=== PATIENT | male | born 1940 | race Hispanic/Latino ===

== ENCOUNTER 2020-06-29 08:00 | Outpatient (CLI) | payer MEDICARE, MEDICAID, SELFPAY ==
--- NOTE | ~2020-06-29 | MR_ITS ---
EXAMINATION: MR brain/brain stem wo con EXAM DATE: 06/29/2020 15:11 INDICATION: Dizziness. TECHNIQUE: Magnetic resonance imaging (MRI) of the brain/brain stem obtained without contrast. Sagitt al T1, axial diffusion, gradient echo (T2*), T1, T2, FLAIR sequences obtained. There is no prior st udy for comparison. FINDINGS: Large region of encephalomalacia centered in the left parietal region. Small old bilateral cerebellar lacunar infarctions. Some dilated basal ganglia perivascular spaces. Punctate region of in creased diffusion weighted signal in the right centrum semiovale, could be tiny acute infarction. Th ere is no acute hemorrhage seen on the T2*, a hemosiderin sensitive sequence. No intraparenchymal br ain mass lesion. There is moderate periventricular and subcortical T2/FLAIR signal hyperintensity, no nspecific but probably related to small vessel ischemic disease (microangiopathy). There is moderat e prominence of the sulci and ventricles related to cerebral atrophy. There are no extra-axial daniel ections. Flow voids are seen in the cerebral arteries on the T2-weighted sequences consistent with t heir expected patency. Patient has had bilateral ocular lens surgery. Soft tissue is unremarkable. IMPRESSION: 1. Probable tiny acute right centrum semiovale, white matter Infarction. 2. Large old left parietal infarction. 3. Punctate old cerebellar infarctions. 4. Chronic age related findings Reviewed, dictated and finalized at location A.
== END 2020-06-29 08:01 | disposition home or self-care (01) ==
LOC: ANHIMG 08-04 14:59
PROVIDERS: PCP Physician Assistant; Visit Provider Physician Assistant
DX: R42 Dizziness and giddiness (principal); Z86.73 Personal history of transient ischemic attack (TIA), and cerebral infarction without residual deficits
CPT/HCPCS: 70551

== ENCOUNTER 2020-08-07 21:07 | Emergency (ER) | payer MEDICARE, MEDICAID, SELFPAY ==
[2020-08-07] VITALS (8 sets, daily range): BP systolic 142–183; BP diastolic 61–79; PULSE 49–63; RESP 19–20; TEMP 36.3–36.9; O2SAT 99–100
--- NOTE | ~2020-08-07 | XR_ITS ---
EXAMINATION: XR chest 1V DATE: 08/07/2020 21:36 INDICATION: Hypertension, dizziness and nausea TECHNIQUE: frontal view of the chest was obtained. COMPARISON: Chest radiograph dated 11/17/[address] dated 07/09/2019 FINDINGS: There is increased lucency and some architectural distortion most prominent in the right upper lung z one corresponding to emphysema better appreciated on prior CT. No focal airspace opacities, pulmonary edema, pleural effusion or pneumothorax. Heart size is normal. Tortuous thoracic aorta. Enlargement of the central pulmonary arteries consistent with pulmonary arterial hypertension. Cholecystectomy cl ips in the right upper quadrant. Heterotopic ossification at the right coracoclavicular ligament cons istent with chronic right acromioclavicular joint separation. Surgical clips at the right base of the neck consistent with prior right thyroidectomy. IMPRESSION: 1. Emphysema. No acute cardiopulmonary disease. Reviewed, dictated and finalized at [facility]. ITTER
--- NOTE | ~2020-08-07 | CT_ITS ---
EXAMINATION: CT brain wo con DATE: 08/07/2020 21:29 INDICATION: Dizziness TECHNIQUE: Computed tomography (CT) of the head was performed without intravenous contrast. Sagittal and coronal reconstructions were performed. The mA was adjusted according to patient size. Iterative reconstruction technique was employed. The dose-length product was 605.33 mGy-cm. COMPARISON: head CT dated 03/16/2017 FINDINGS: Again seen is a large region of encephalomalacia in the transverse in the left parietal and parietal occipital region consistent with chronic infarct. A couple additional small old lacunar infarcts in t he bilateral cerebellar hemispheres. No acute intracranial hemorrhage, acute infarction or mass/mass effect. There is symmetric prominence of the sulci and subarachnoid spaces overlying the convexities consistent with moderate age-appropriate diffuse cerebral volume loss. Mild to moderate leaking andi ventricular and subcortical white matter hypoattenuation consistent with chronic small vessel ischemi c disease. Changes of aging intraocular lens replacement. Mucosal thickening the bilateral ethmoid si nuses. The orbits and mastoid air cells are normal. Intracranial calcified cerebral atherosclerosis i s noted. Debris/cerumen in the left external auditory canal. Benign lytic right frontal calvarial les ion with central fat attenuation consistent with hemangioma. IMPRESSION: 1. No acute intracranial process. 2. Unchanged large left parietal and parietal occipital infarct and small bilateral cerebellar infarc ts. 3. Stable appearance of moderate diffuse volume loss and mild to moderate scattered white matter hypo attenuation consistent with chronic small vessel ischemic disease. 4. Chronic sinus disease. Reviewed, dictated and finalized at location . STATION ATTENDANT IMPRESSION: 1. No acute intracranial process. 2. Unchanged large left parietal and parietal occipital infarct and small bilat eral cerebellar infarcts. 3. Stable appearance of moderate diffuse volume loss and mild to moderate scatt ered white matter hypoattenuation consistent with chronic small vessel ischemic disease. 4. Chronic sinus disease.
--- NOTE | 2020-08-07 21:11 | ECG_ITS ---
Measurements Intervals [place] Rate: 52 P: 74 MD: 192 QRS: -12 QRSD: 98 T: 13 QT: 451 QTc: 420 Interpretive Statements SINUS BRADYCARDIA EARLY PRECORDIAL R/S TRANSITION INFERIOR INFARCT, AGE INDETERMINATE ABNORMAL ECG Electronically Signed On 08-08-2020 8:25:19 CURRICULUM DESIGNER by Richard Castro D.O.
--- NOTE | 2020-08-07 21:12 | ED.DIZZY ---
HPI - Dizziness General Chief Complaint: Dizziness Stated Complaint: dizzy History of Present Illness HPI Narrative: Patient presents emergency department via EMS for dizziness. Patient states that dizziness began today. He states that with standing he becomes dizzy and feels like the room is spinning. States the symptoms resolve when he sits down he denies any current dizziness sitting in the bed. He denies any fevers or chills chest pain shortness of breath abdominal pain numbness or tingling of the extremities or any other symptoms Related Data Home Medications Medication Instructions Recorded Confirmed alprazolam 08/07/20 ferrous sulfate mg 08/07/20 levothyroxine 08/07/20 memantine mg 08/07/20 mirtazapine mg 08/07/20 pantoprazole PO 08/07/20 simvastatin mg 08/07/20 Allergies Allergy/AdvReac Type Severity Reaction Status Date / Time No Known Allergies Allergy Verified 08/07/20 22:54 Review of Systems Review of Systems: Narrative: Gen.: Denies fevers or chills Eyes: Denies eye pain or visual change ENT: Denies congestion Respiratory: Denies shortness of breath or cough CV: Denies chest pain or palpitations GI: Denies abdominal pain nausea, emesis or diarrhea denies burning, urgency, frequency or hematuria Musculoskeletal: Denies back pain or muscle pain Neuro: see HPI Skin: Denies rash Except as documented, all other systems reviewed and negative [facility] Past Medical History Medical History (Updated 08/08/20 @ 01:02 by Drew De Luna DO) CVA (cerebral vascular accident) Hypertension Family History Family History (Updated 12/26/13 @ 22:43 by DOCTOR UNKNOWN) Mother Patient's mother is Father Patient's father is Social History Social History (Updated 08/07/20 @ 21:13 by Drew De Luna DO) Smoking status: Never smoker Exam Narrative: Exam Narrative: APPEARANCE: No acute distress, nontoxic, resting in bed HEENT: Normocephalic, atraumatic, OMM, TMs clear bilaterally EYES: PERRL, EOMI NECK: Supple, nontender, full range of motion without pain, no meningismus RESPIRATORY: No respiratory distress, clear to auscultation bilaterally with no rhonchi wheezing or rales CARDIOVASCULAR: RRR s murmur ABDOMINAL: Soft, nontender, nondistended MUSCULOSKELETAL: Moves all extremities. No clubbing, cyanosis or edema. NEURO: A and O ?3, following commands, speech normal, cranial nerves II through XII grossly intact,muscle strength 5 out of 5 bilateral upper and lower extremities SKIN:: Warm, dry. Normal Color PSYCHIATRIC: Normal affect/mood Course Course Emergency Course: Patient states dizziness is resolved following medication able to get up and ambulate in ED with no dizziness Discussed with patient results of workup and diagnosis. Discussed need for follow-up with primary care, proper use of medication, and reasons to return to the emergency department. Patient understands and agrees to current treatment plan Vital Signs Vital signs: Vital Signs Temperature 97.3 F L 08/07/20 21:05 Pulse Rate 63 08/07/20 21:05 Respiratory Rate 19 08/07/20 21:05 Blood Pressure 166/63 H 08/07/20 21:05 Pulse Oximetry 100 08/07/20 21:05 Temperature 98.5 F 08/07/20 22:46 Pulse Rate 49 L 08/07/20 22:46 Respiratory Rate 20 08/07/20 22:46 Blood Pressure 176/70 H 08/07/20 22:46 Pulse Oximetry 100 08/07/20 22:46 MDM - Dizziness MDM Narrative Medical decision making narrative: Patient's vertigo is felt to be likely peripheral in origin. There is no diplopia, dysarthria or dysphagia. Patient's gait is stable and there are no cerebral deficits to exam. Risk factor for central causes of vertigo reviewed. Patient felt likely reasonable for continued outpatient management and risks are felt to outweigh benefits for further imaging studies at this time Lab Data Result diagrams: 08/07/20 21:52 08/07/20 21:52 Labs
[2020-08-07 22:02] LABS: Basophils Percent Auto 0.5 % (0.2-1.2); Eosinophils Absolute Auto 0.3 K/mm3 (0-0.3); Eosinophils Percent Auto 3.6 % (0-4.4); Hemoglobin 13.6 g/dL (14.0-18.0); Immature Granulocyte Absolute 0.02 K/mm3 (0.00-0.031); Immature Granulocyte Percent A 0.3 % (0-0.5); Lymphocytes Absolute Auto 1.74 K/mm3 (0.9-3.2); Mean Corpuscular HGB Conc 33.2 g/dl (32-36); Mean Corpuscular Hemoglobin 30.2 pg (26-34); Mean Corpuscular Volume 90.9 fl (80-100); Mean Platelet Volume 9.7 fl (7.4-10.4); Monocytes Absolute Auto 0.8 K/mm3 (0.1-0.6); Monocytes Percent Auto 9.9 % (2.6-8.5); Neutrophils Absolute Auto 4.8 K/mm3 (1.3-6.7); Neutrophils Percent Auto 62.7 % (45.5-73.1); Platelet Count Result 209 k/mm3 (150-375); Red Blood Count 4.51 M/mm3 (4.6-6.20); Red Cell Distribution Width 13.7 % (11.5-14.5); White Blood Count 7.6 K/mm3 (4.5-10.0)
[2020-08-07 22:15] LABS: INR 0.9; Prothrombin Time 12.6 Seconds (11.1-14.7)
[2020-08-07 22:16] LABS: Partial Thromboplastin Time 32.3 SECONDS (22.3-36.8)
[2020-08-07 22:23] LABS: Alanine Aminotransferase 13 U/L (4-50); Alkaline Phosphatase 90 U/L (38-126); Anion Gap 8 mmol/L (8-16); Aspartate Amino Transferase 23 U/L (17-59); Bilirubin,Total 0.3 mg/dL (0.2-1.3); Blood Urea Nitrogen 21 mg/dL (9-20); Calcium 9.3 mg/dL (8.4-10.2); Carbon Dioxide 26 mmol/L (22-30); Chloride 102 mmol/L (98-107); Estimated Glomerular Filt Rate > 60; Glucose 99 mg/dL (75-110); Potassium 4.3 mmol/L (3.4-5.0); Sodium 136 mmol/L (137-145)
[2020-08-07 22:33] LABS: Troponin I < 0.012 ng/mL (0.000-0.034)
[2020-08-07] MEDS: MECLIZINE HCL 25 MG TABLET PO (22:42)
--- NOTE | 2020-08-07 22:59 | PC.NURSE ---
Patient's daughter is POA: Jacquie Mckay [phone] May call her for ride home.
[2020-08-07 23:11] LABS: Add Urine Microscopic? YES; Appearance Urine Clear (Clear); Bacteria Urine Trace /hpf; Bilirubin Urine Negative (Negative); Blood Urine Negative (Negative); Color Urine Straw (Yellow); Glucose Urine UA Negative (Negative); Ketones Urine Negative (Negative); Leukocyte Esterase Ur Negative LEU/UL (Negative); Nitrate Urine Negative (Negative); Protein Urine 1+ mg/dL (Negative); RBC Urine 0-2 /hpf (0-2); Specific Grav Ur 1.009 (1.001-1.035); Squamous Epithelial Cell Urine Rare /hpf (Few); Urobilinogen Urine Negative mg/dL (<2.0); WBC Urine 0-3 /hpf
[2020-08-08] VITALS: BP 152/65; PULSE 49; RESP 18; O2SAT 99
[2020-08-08 01:00] VITALS: BP 159/74; PULSE 52; RESP 19; O2SAT 99
== END 2020-08-08 01:30 | disposition home or self-care (01) ==
PROVIDERS: Emergency Provider Emergency Medicine; PCP Physician Assistant
DX: R42 Dizziness and giddiness (principal); Z86.73 Personal history of transient ischemic attack (TIA), and cerebral infarction without residual deficits; I10 Essential (primary) hypertension; R00.1 Bradycardia, unspecified; R94.31 Abnormal electrocardiogram [ECG] [EKG]; J43.9 Emphysema, unspecified
CPT/HCPCS: 36415; 70450; 71045; 80053; 81001; 84484; 85025; 85610; 85730; 93005; 99284; A9270

== ENCOUNTER 2021-09-17 17:20 | Emergency (ER) | payer MEDICARE, MEDICAID, SELFPAY ==
--- NOTE | ~2021-09-17 | CT_ITS ---
EXAMINATION: CT brain wo con EXAM DATE: 09/17/2021 19:42 INDICATION: Vertigo, history of stroke and dementia. Nausea. TECHNIQUE: Spiral CT of the head was performed without contrast. Axial, coronal and sagittal images were reviewed. The dose-length product (DLP) for this examination was 605.33 mGy-cm. The exposure w as tailored according to patient size, and iterative reconstruction (ASIR) was used as additional dos e reduction technique. Comparison is made to prior examination from 08/07/2020. FINDINGS: Large old left parietal lobe centered infarction. Old punctate bilateral caudate head lacun ar infarctions. Punctate old bilateral cerebellar infarctions. There is no acute intraparenchymal hem orrhage. No evidence of intraparenchymal brain mass lesion. No evidence of acute infarction. Pleas e note that initial head CT has limited sensitivity for small or acute infarctions. There is moderate periventricular and subcortical hypodensity, nonspecific but probably related to small vessel ischem ic disease. There is moderate prominence of the sulci and ventricles related to cerebral atrophy. There is intracranial carotid arteriosclerosis. There are no extra-axial collections. There is no mass effect or midline shift. Patient has had bilateral ocular lens surgery. Soft tissue is unremar kable. Opacified right maxillary sinus, moderate bilateral ethmoid and mild to moderate left maxillary sinus mucoperiosteal thickening. Mastoid air cells are well aerated. IMPRESSION: 1. No acute intracranial findings. 2. Chronic age related findings. 3. Old infarctions. Reviewed, dictated and finalized at location A. LATION INSTALLER
--- NOTE | ~2021-09-17 | XR_ITS ---
EXAMINATION: XR chest 1V portable EXAM DATE: 09/17/2021 18:12 INDICATION: Dizziness, bradycardia. History stroke and hypertension. TECHNIQUE: Portable AP frontal chest x-ray was obtained. Comparison is made to prior examination from 08/07/2020. FINDINGS: The lungs are clear. There are no pleural effusions. The cardiomediastinal silhouette is p rominent but magnified on this AP technique. There is no pneumothorax suspected. The bones and so ft tissues are unremarkable. IMPRESSION: No acute cardiopulmonary findings. Reviewed, dictated and finalized at location A. EKEEPER HELPER
[2021-09-17 17:24] VITALS: BP 156/67; PULSE 49; RESP 17; TEMP 37; O2SAT 99
--- NOTE | 2021-09-17 17:30 | ECG_ITS ---
Measurements Intervals [place] Rate: 44 P: 73 DC: 200 QRS: 28 QRSD: 100 T: 35 QT: 480 QTc: 414 Interpretive Statements SINUS BRADYCARDIA BORDERLINE AV CONDUCTION DELAY EARLY PRECORDIAL R/S TRANSITION CONSDIER INFERIOR INFARCT, AGE INDETERMINATE ABNORMAL ECG Electronically Signed On 09-17-2021 19:12:36 FUEL OIL CLERK by Richard Castro D.O.
[2021-09-17 17:51] LABS: Basophils Absolute Auto 0.1 K/mm3 (0.0-0.1); Basophils Percent Auto 0.8 % (0.2-1.2); Eosinophils Absolute Auto 0.6 K/mm3 (0-0.3); Eosinophils Percent Auto 7.8 % (0-4.4); Hematocrit 38.8 % (42.0-52.0); Hemoglobin 12.6 g/dL (14.0-18.0); Immature Granulocyte Absolute 0.02 K/mm3 (0.00-0.031); Immature Granulocyte Percent A 0.3 % (0-0.5); Lymphocytes Absolute Auto 1.96 K/mm3 (0.9-3.2); Lymphocytes Percent Auto 27.8 % (18.3-44.2); Mean Corpuscular HGB Conc 32.5 g/dl (32-36); Mean Corpuscular Hemoglobin 29.9 pg (26-34); Mean Corpuscular Volume 92.2 fl (80-100); Mean Platelet Volume 9.7 fl (7.4-10.4); Monocytes Absolute Auto 0.7 K/mm3 (0.1-0.6); Monocytes Percent Auto 10.1 % (2.6-8.5); Neutrophils Absolute Auto 3.8 K/mm3 (1.3-6.7); Neutrophils Percent Auto 53.2 % (45.5-73.1); Platelet Count Result 205 k/mm3 (150-375); Red Blood Count 4.21 M/mm3 (4.6-6.20); Red Cell Distribution Width 13.7 % (11.5-14.5); White Blood Count 7.1 K/mm3 (4.5-10.0)
[2021-09-17 18:01] LABS: Alanine Aminotransferase 8 U/L (4-50); Albumin Level 4.1 g/dL (3.5-5.1); Alkaline Phosphatase 86 U/L (38-126); Anion Gap 8 mmol/L (8-16); Aspartate Amino Transferase 17 U/L (17-59); Bilirubin,Total 0.3 mg/dL (0.2-1.3); Blood Urea Nitrogen 24 mg/dL (9-20); Carbon Dioxide 23 mmol/L (22-30); Chloride 105 mmol/L (98-107); Estimated CRCL calculation 35 ml/min; Estimated Glomerular Filt Rate > 60; Glucose 103 mg/dL (65-110); Potassium 4.4 mmol/L (3.4-5.0); Sodium 136 mmol/L (137-145)
[2021-09-17 18:53] LABS: Prothrombin Time 13.2 Seconds (11.1-14.7)
[2021-09-17 18:54] LABS: Magnesium 2.1 mg/dL (1.6-2.3); Partial Thromboplastin Time 33.7 SECONDS (22.3-36.8)
[2021-09-17 19:07] LABS: Troponin I < 0.012 ng/mL (0.000-0.034)
--- NOTE | 2021-09-17 19:12 | ED.GENADULT ---
HPI - General Adult General Chief complaint: Dizziness Stated complaint: dizzy Time Seen by Provider: 09/17/21 18:51 History of Present Illness HPI narrative: 81-year-old male presented to the emergency department for evaluation of dizziness. Patient states that approximately 5 PM he was sitting and watching TV when he had onset of a spinning sensation. Patient denies feeling like he was going to pass out. Patient describes that he felt the room was spinning. Patient denied any associated chest pain or shortness of breath. Patient did have associated nausea. Patient states symptoms lasted approximately 1 hour and began to improve. In the emerge department patient states he still does have some residual dizziness but states it is significantly improved. Patient denies any associated numbness or weakness. Patient denies any recent fevers or injury. Related Data Home Medications Medication Instructions Recorded Confirmed alprazolam 08/07/20 ferrous sulfate mg 08/07/20 levothyroxine 08/07/20 memantine mg 08/07/20 mirtazapine mg 08/07/20 pantoprazole PO 08/07/20 simvastatin mg 08/07/20 Allergies Allergy/AdvReac Type Severity Reaction Status Date / Time No Known Allergies Allergy Verified 09/17/21 18:19 Review of Systems Review of Systems: CONSTITUTIONAL: Denies fever, chills, or sweats. Patient does report dizziness EYES: Denies visual changes, redness, or discharge. ENT: Denies rhinorrhea, congestion, sore throat, or otalgia. CARDIOVASCULAR: Denies chest pain, palpitations, or edema. RESPIRATORY: Denies cough or dyspnea. GASTROINTESTINAL: Denies abdominal pain, nausea, vomiting, or diarrhea. GENITOURINARY: Denies dysuria or hematuria. SKIN: Denies rash or itching. MUSCULOSKELETAL: Denies back pain, joint pain, or myalgia. NEUROLOGIC: Denies headache, numbness, or weakness. PSYCHIATRIC: Denies anxiety or depression. [facility] Past Medical History Medical History (Updated 09/18/21 @ 00:00 by Kermit Ellison) CVA (cerebral vascular accident) Hypertension Family History Family History (System 08/26/20 @ 13:40 by Chana Kong) Mother Patient's mother is Father Patient's father is Social History Social History (System 08/26/20 @ 13:40 by Chana Kong) Smoking packs per day: 0.25 Smoking cigarettes per day: 5.0 Smoking status: Current some day smoker Exam Narrative: APPEARANCE: Well appearing, no pain in distress, well-nourished. HEAD: normocephalic, atraumatic. EYES: PERRLA/EOMI, conjunctivae clear. NOSE: Normal no drainage EARS:TMS clear with good light reflex. THROAT: Pharynx clear, no exudate. NECK: Supple. No adenopathy, no masses. RESPIRATORY: Airway patent, respirations nonlabored. Clear to auscultation bilaterally, no rales, rhonchi, wheezing. CARDIOVASCULAR: Regular rate and rhythm without murmurs rubs or gallops. ABDOMINAL: Soft, nontender, nondistended, normal bowel sounds MUSCULOSKELETAL: Moves all extremities. Strength/ROM intact, No edema, No calf tenderness. NEURO: Alert. Cranial nerves II through XII intact. Good gait. Good coordination. Patient symptoms of dizziness were induced when he looked up and when he looked to the left. Patient did have sustained nystagmus to the left. Nonsustained nystagmus when looking to the right. SKIN: Warm, dry. Normal Color PSYCHIATRIC: Normal affect/mood. Course Course Emergency Course: 81-year-old male presenting to the emergency department for onset of dizziness. Patient is being treated for suspected vertigo. Patient symptoms are inducible when looking to the left or when looking up. Patient did feel his symptoms resolved when closing his eyes. Evaluating labs, head CT and treated with meclizine. Reevaluation(s) Reevaluation #1: Patient states his dizziness symptoms have completely resolved. Patient denies any dizziness or lightheadedness. Patient states he feels back to h
[2021-09-17] MEDS: MECLIZINE HCL 25 MG TABLET PO (19:19)
[2021-09-17 21:35] VITALS: BP 112/78; PULSE 78; RESP 18; O2SAT 99
== END 2021-09-17 21:36 | disposition home or self-care (01) ==
PROVIDERS: Emergency Medicine; Emergency Provider Emergency Medicine; PCP Physician Assistant
DX: R42 Dizziness and giddiness (principal); I10 Essential (primary) hypertension; F17.210 Nicotine dependence, cigarettes, uncomplicated; Z86.73 Personal history of transient ischemic attack (TIA), and cerebral infarction without residual deficits
CPT/HCPCS: 36415; 70450; 71045; 80053; 83735; 84484; 85025; 85610; 85730; 93005; 99284; A9270

== ENCOUNTER 2021-10-26 15:32 | Inpatient (IN) | payer MEDICARE, MEDICAID, SELFPAY ==
[2021-10-26] VITALS (17 sets, daily range): BP systolic 108–146; BP diastolic 63–96; PULSE 54–88; RESP 14–24; TEMP 36.4–36.6; O2SAT 95–100
--- NOTE | ~2021-10-26 | US_ITS ---
EXAMINATION: US abdomen complete DATE: 10/27/2021 18:11 INDICATION: Persistent diarrhea. TECHNIQUE: Multiple grayscale and Doppler ultrasound images of the abdomen were obtained. COMPARISON: CT abdomen and pelvis 10/26/2021 FINDINGS: The visualized portions of the abdomen body of the pancreas are normal. The liver is normal without focal lesion. There is normal flow in main portal vein. The gallbladder is absent. The commo n duct is normal and measures 4 mm. The spleen is normal in size. Inferior vena cava is normal. Abdom inal aorta is normal in caliber. Right kidney measures 8.1 x 4.1 x 5.0 cm. Left kidney measures 8.4 x 4.7 x 3.6 cm. There is a 1.5 cm cyst in right kidney. IMPRESSION: 1. Mild atrophy of the kidneys. Reviewed, dictated and finalized at location E. UER SHADER
--- NOTE | ~2021-10-26 | CT_ITS ---
EXAMINATION: CT abdomen pelvis wo con DATE: 10/26/2021 21:14 INDICATION: Nausea and vomiting. TECHNIQUE: Computed tomography (CT) of the abdomen and pelvis was performed without intravenous contr ast. Automated exposure control and iterative reconstruction technique were employed. The dose-length product was 189.61 mGy-cm. COMPARISON: CT abdomen and pelvis 07/09/2019 FINDINGS: The visualized portions of the lung bases demonstrate patchy groundglass opacities with sep ayan thickening in all lobes. There is mild emphysema. No pleural effusion. The heart size is normal. There are coronary artery calcifications. No pericardial effusion. Calcified right lung nodules are c onsistent with old granulomatous disease. There is a chronic 2.2 cm rim calcified mass in right hepat ic lobe, likely benign. There are changes of cholecystectomy. The spleen, pancreas, adrenal glands, a nd left kidney are normal. There is a 1.7 cm cyst in right kidney. The prostate is mildly enlarged. T here is a left inguinal hernia containing nonobstructed small bowel. There is diverticulosis of the c olon without evidence of diverticulitis. The appendix is normal. There is a small sliding hiatal rina ia. There are no pathologically enlarged lymph nodes. There is no free intraperitoneal fluid. There i s severe lumbar spondylosis. IMPRESSION: 1. Multifocal lung disease, consistent with pneumonia such as COVID-19 pneumonia. . 2. Emphysema. 3. Left inguinal hernia containing nonobstructed small bowel. Reviewed, dictated and finalized at location A. CAL DIRECTOR OF HOSPICE IMPRESSION: 1. Multifocal lung disease, consistent with pneumonia such as COVID-19 pneumoni a. . 2. Emphysema. 3. Left inguinal hernia containing nonobstructed small bowel.
--- NOTE | ~2021-10-26 | CT_ITS ---
EXAMINATION: CTA chest PE protocol DATE: 10/27/2021 18:15 INDICATION: COVID-19 pneumonia. TECHNIQUE: Computed tomography angiography (CTA) of the chest was performed with 100 mL Omnipaque-350 intravenous contrast timed to evaluate the pulmonary arteries. Coronal maximum intensity projection 3D-reconstructions were created by the technologist. Automated exposure control and iterative reconst ruction technique were employed. The dose-length product was 220.14 mGy-cm. COMPARISON: Chest CT 07/09/2019 FINDINGS: There is moderate emphysema. Motion artifact is noted. There are patchy groundglass opaciti es with septal thickening involving the lower lobes, right middle lobe, and lingula. No pleural effus ion. There is ectasia of the descending thoracic aorta measuring 4.7 cm, stable from 07/09/2019. The heart size is normal. There are coronary artery calcifications. No pericardial effusion. There is no pulmonary embolus. There is mild bilateral gynecomastia. There is a chronic 2.3 cm rim calcified mass in right hepatic lobe, likely benign. There is severe thoracic spondylosis and severe cervical spond ylosis. IMPRESSION: 1. No pulmonary embolus. 2. Multifocal lung disease involving the lower lobes, right middle lobe, and lingula, consistent with COVID-19 pneumonia. 3. Moderate emphysema. Reviewed, dictated and finalized at location E. IAL DUTY NURSE IMPRESSION: 1. No pulmonary embolus. 2. Multifocal lung disease involving the lower lobes, right middle lobe, and li ngula, consistent with COVID-19 pneumonia. 3. Moderate emphysema.
--- NOTE | 2021-10-26 18:27 | ED.NAVMDI ---
HPI - Nausea/Vomiting/Diarrhea General Chief complaint: Nausea/Vomiting/Diarrhea Stated complaint: nausea and vomiting Time Seen by Provider: 10/26/21 18:25 Source: patient Mode of arrival: ambulatory Limitations: no limitations History of Present Illness HPI Narrative: Patient is an 81-year-old male complaining of nausea and vomiting x3 days. Patient states that every time I eat I throw it up . Patient describes vomitus is nonbilious nonbloody. Patient denies any abdominal pain, diarrhea, urinary symptoms, fever or chills. Patient denies any chest pain or shortness of breath. Related Data Home Medications Medication Instructions Recorded Confirmed alprazolam 08/07/20 ferrous sulfate mg 08/07/20 levothyroxine 08/07/20 memantine mg 08/07/20 mirtazapine mg 08/07/20 pantoprazole PO 08/07/20 simvastatin mg 08/07/20 Allergies Allergy/AdvReac Type Severity Reaction Status Date / Time No Known Allergies Allergy Verified 10/26/21 18:18 Review of Systems Review of Systems: All systems reviewed & are unremarkable except as noted in HPI and below Constitutional: Constitutional: Denies body ache(s), Denies chills, Denies excessive sweating, Denies fatigue, Denies fever(s), Denies headache(s), Denies lethargy, Denies malaise, Denies weakness and Denies weight loss Eyes: Eyes: Denies blurry vision, Denies change in vision and Denies loss of vision ENT: Denies dizziness, Denies ear discharge, Denies headache(s), Denies lip swelling, Denies epistaxis, Denies nasal congestion, Denies neck pain, Denies throat swelling and Denies tongue swelling Cardiovascular: Cardiovascular: Denies chest pain, Denies chest pain at rest, Denies chest pain with activity, Denies diaphoresis, Denies rapid heart rate, Denies edema, Denies irregular heart rhythm, Denies lightheadedness, Denies palpitations, Denies dyspnea and Denies dyspnea on exertion Respiratory: Respiratory: Denies chest congestion, Denies cough, Denies hemoptysis, Denies dyspnea and Denies dyspnea on exertion Gastrointestinal: Gastrointestinal: Denies abdominal pain, Denies melena, Denies hematochezia, Denies diarrhea and Denies hematemesis Musculoskeletal: Musculoskeletal: Denies abnormal gait, Denies deformity, Denies joint swelling, Denies limited range of motion, Denies neck pain and Denies numbness Neurologic: Denies Abnormal speech present, Denies abnormal gait, Denies confusion, Denies dizziness, Denies headache(s), Denies focal weakness, Denies loss of vision, Denies numbness, Denies Other visual disturbances, Denies Sensory deficit (Neuro) and Denies weakness Psychiatric: Psychiatric: Denies confusion, Denies depression, Denies auditory hallucinations, Denies homicidal ideation and Denies suicidal ideation Endocrine: Endocrine: Denies cold intolerance, Denies excessive sweating, Denies fatigue, Denies heat intolerance and Denies palpitations Hematologic/Lymphatic: Hematologic/Lymphatic: Denies easy bleeding and Denies easy bruising Allergic/Immunologic: Allergic/Immunologic: Denies lip swelling, Denies throat swelling and Denies tongue swelling PMFSH Past Medical History Medical History CVA (cerebral vascular accident) Hypertension Family History Family History Mother Patient's mother is Father Patient's father is Social History Social History Smoking packs per day: 0.25 Smoking cigarettes per day: 5.0 Smoking status: Current some day smoker Exam Const: General: cooperative, healthy appearing, comfortable, no acute distress, well developed, alert and awake; No confusion Orientation/consciousness: oriented to person, oriented to place, oriented to time, patient oriented x3 and No confusion Limitations: no limitations HENMT: Head: normal t
[2021-10-26 19:14] LABS: Basophils Percent Auto 0.3 % (0.2-1.2); Eosinophils Absolute Auto 0.1 K/mm3 (0-0.3); Eosinophils Percent Auto 0.8 % (0-4.4); Hematocrit 44.8 % (42.0-52.0); Hemoglobin 14.7 g/dL (14.0-18.0); Immature Granulocyte Absolute 0.14 K/mm3 (0.00-0.031); Immature Granulocyte Percent A 1.4 % (0-0.5); Lymphocytes Absolute Auto 0.96 K/mm3 (0.9-3.2); Lymphocytes Percent Auto 9.8 % (18.3-44.2); Mean Corpuscular HGB Conc 32.8 g/dl (32-36); Mean Corpuscular Hemoglobin 29.9 pg (26-34); Mean Corpuscular Volume 91.1 fl (80-100); Mean Platelet Volume 10.3 fl (7.4-10.4); Monocytes Absolute Auto 0.7 K/mm3 (0.1-0.6); Monocytes Percent Auto 7.6 % (2.6-8.5); Neutrophils Absolute Auto 7.9 K/mm3 (1.3-6.7); Neutrophils Percent Auto 80.1 % (45.5-73.1); Platelet Count Result 274 k/mm3 (150-375); Red Blood Count 4.92 M/mm3 (4.6-6.20); Red Cell Distribution Width 13.8 % (11.5-14.5); White Blood Count 9.8 K/mm3 (4.5-10.0)
[2021-10-26] MEDS: PANTOPRAZOLE SODIUM IV 40 MG VIAL IV PUSH (19:19)
[2021-10-26] MEDS: SODIUM CHLORIDE 0.9% IV 1,000 ML 999 ML IV CONT (19:19)
[2021-10-26] MEDS: ONDANSETRON INJ 4 MG/2 ML VIAL IV PUSH (19:21)
[2021-10-26 19:24] LABS: Add Urine Microscopic? YES; Appearance Urine Clear (Clear); Bilirubin Urine Negative (Negative); Blood Urine Negative (Negative); Color Urine Yellow (Yellow); Glucose Urine UA Negative (Negative); Ketones Urine Negative (Negative); Leukocyte Esterase Ur Negative LEU/UL (Negative); Mucus Urine Rare /lpf; Nitrate Urine Negative (Negative); Protein Urine Negative (Negative); RBC Urine 0-2 /hpf (0-2); Squamous Epithelial Cell Urine Rare /hpf (Few); Urobilinogen Urine Negative mg/dL (<2.0); WBC Urine 0-3 /hpf
[2021-10-26 19:50] LABS: Alanine Aminotransferase 37 U/L (4-50); Albumin Level 4.5 g/dL (3.5-5.1); Alkaline Phosphatase 107 U/L (38-126); Anion Gap 11 mmol/L (8-16); Aspartate Amino Transferase 39 U/L (17-59); Bilirubin,Total 0.3 mg/dL (0.2-1.3); Blood Urea Nitrogen 63 mg/dL (9-20); Calcium 9.5 mg/dL (8.4-10.2); Carbon Dioxide 13 mmol/L (22-30); Chloride 114 mmol/L (98-107); Estimated CRCL calculation 25 ml/min; Estimated Glomerular Filt Rate 45; Glucose 114 mg/dL (65-110); Lipase 218 U/L (23-300); Sodium 138 mmol/L (137-145)
--- NOTE | 2021-10-26 20:06 | ECG_ITS ---
Measurements Intervals [place] Rate: 62 P: 87 WI: 189 QRS: 37 QRSD: 90 T: 42 QT: 399 QTc: 406 Interpretive Statements SINUS RHYTHM EARLY PRECORDIAL R/S TRANSITION PEAKED T WAVES- CONSIDER HYPERKALEMIA OR ISCHEMIA BASELINE ARTIFACT- I, II, III, AVR, AVL, AVF ABNORMAL ECG Electronically Signed On 10-27-2021 6:37:59 BOAT RIGGER by Richard Castro D.O.
[2021-10-26] MEDS: ALBUTEROL SULFATE NEB 2.5 MG/0.5 ML INH 10 MG INHALATION (20:52)
[2021-10-26 21:09] LABS: Lactic Acid Reflex 0.9 mmol/L (0.7-2.1)
[2021-10-26] MEDS: INSULIN HUMAN REGULAR (*BKC) 100 UNITS/ML 10 UNITS IV PUSH (21:28)
[2021-10-26] MEDS: LACTATED RINGERS 1,000 ML 125 ML IV CONT (21:29)
[2021-10-26] MEDS: DEXTROSE 50% 25 GM/50 ML SYRINGE IV PUSH (21:29)
[2021-10-26] MEDS: SODIUM POLYSTYRENE SULFONONATE 15 GM/60 ML BTL PO (21:30)
[2021-10-26] MEDS: CALCIUM GLUCONATE 1,000 MG/10 ML VIAL 1000 MG IV PUSH (21:32)
[2021-10-26 22:04] LABS: SARS-CoV-2 RNA PCR Positive
[2021-10-27] VITALS (53 sets, daily range): BP systolic 98–146; BP diastolic 52–70; PULSE 56–108; RESP 14–33; TEMP 36.2–36.6; O2SAT 92–100; BMI 20.1
--- NOTE | 2021-10-27 03:43 | PM.IMHP ---
H&P: HPI History of Present Illness Date/Time: 10/27/21 03:43 Chief Complaint: Nausea vomiting Narrative: This is an 81-year-old man who presents to the ED with nausea and vomiting which is nonbilious nonverbal bloody since past 3 days. He denies any abdominal pain. He does report some diarrhea but is not able to quantify how much he is going. He denies any fever or chills cough or shortness of breath. He states every time he eats he throws of and is not able to hold anything down. He otherwise denies any other complaints and states she is dehydrated and hence came to the ER. He had been given fluid in the ER. In the ER evaluation he is noted to have hyperkalemia with potassium was 6 with metabolic acidosis along with creatinine of 1.5. CT abdomen and pelvis did not reveal any acute abdominal pathology however noted bilateral pneumonia and lower lung mike. He was then swab for COVID which did turn positive. He is getting admitted for further evaluation and management under observation status Review of Systems Review of Systems: - CONSTITUTIONAL: Denies weight loss, fever and chills. - HEENT: Denies changes in vision and hearing - RESPIRATORY: Denies SOB and cough. - CV: Denies palpitations and CP. - GI: Denies abdominal pain, reports nausea, vomiting and diarrhea. - : Denies dysuria and urinary frequency. - MSK: Denies myalgia and joint pain. - SKIN: Denies rash and pruritus. - NEUROLOGICAL: Denies headache and syncope. - PSYCHIATRIC: Denies recent changes in mood. Denies anxiety and depression. All systems reviewed & are unremarkable except as noted in HPI and below Constitutional: Constitutional: Reports fatigue and Reports weakness Neurologic: Reports weakness Endocrine: Endocrine: Reports fatigue [facility] Past Medical History Medical History CVA (cerebral vascular accident) Hypertension Family History Family History Mother Patient's mother is Father Patient's father is Social History Social History Smoking packs per day: 0.25 Smoking cigarettes per day: 5.0 Smoking status: Current some day smoker Meds Home Medications and Allergies Home Medications Medication Instructions Recorded Confirmed Type alprazolam 08/07/20 History ferrous sulfate mg 08/07/20 History levothyroxine 08/07/20 History memantine mg 08/07/20 History mirtazapine mg 08/07/20 History pantoprazole PO 08/07/20 History simvastatin mg 08/07/20 History meclizine 12.5 mg PO TID PRN #10 tablet 08/08/20 Rx meclizine 12.5 mg tablet See Rx Instructions .ROUTE 11/11/20 Rx .COMPLEX #30 tablet meclizine 25 mg PO BID PRN #14 tablet 09/17/21 Rx Allergies Allergy/AdvReac Type Severity Reaction Status Date / Time No Known Allergies Allergy Verified 10/26/21 18:18 Vital Signs Vital Signs - 24 hr 10/26/21 15:36 10/26/21 18:10 10/26/21 18:12 Temperature 97.6 F Pulse Rate 74 60 Respiratory Rate 18 22 H Blood Pressure 108/96 H 146/67 H Pulse Oximetry 97 96 100 10/26/21 18:15 10/26/21 18:16 10/26/21 18:21 Temperature 97.9 F Pulse Rate 55 L 56 L 56 L Respiratory Rate 17 19 14 Blood Pressure 132/64 132/64 Pulse Oximetry 100 100 100 10/26/21 18:30 10/26/21 18:31 10/26/21 18:45 Temperature Pulse Rate 55 L 54 L 58 L Respiratory Rate 18 21 H 17 Blood Pressure 121/63 Pulse Oximetry 99 99 99 10/26/21 18:46 10/26/21 19:34 10/26/21 20:53 Temperature Pulse Rate 66 62 68 Respiratory Rate 19 19 20 Blood Pressure 122/85 131/67 Pulse Oximetry 99 100 10/26/21 21:21 10/26/21 22:46 10/27/21 01:12 Temperature Pulse Rate 70 88 79 Respiratory Rate 20 20 22 H Blood Pressure 122/68 102/68 Pulse Oximetry 95 97 98 Exam Narrative: GENERAL: The patient is we
[2021-10-27] MEDS: LACTATED RINGERS 1,000 ML 50 ML IV CONT (06:13)
--- NOTE | 2021-10-27 06:14 | PC.NURSE ---
PETRAB received from hospitalist Dr. Salvador to reduce infusion rate to 50 mL/hr
[2021-10-27 06:38] LABS: Anion Gap 6 mmol/L (8-16); Blood Urea Nitrogen 45 mg/dL (9-20); Carbon Dioxide 18 mmol/L (22-30); Chloride 118 mmol/L (98-107); Estimated CRCL calculation 31 ml/min; Estimated Glomerular Filt Rate 58; Glucose 93 mg/dL (65-110); Potassium 5.3 mmol/L (3.4-5.0); Sodium 142 mmol/L (137-145)
[2021-10-27] MEDS: SODIUM CHLORIDE 0.9% IV 1,000 ML 60 ML IV CONT (07:32)
[2021-10-27] MEDS: PANTOPRAZOLE SODIUM IV 40 MG VIAL IV PUSH (09:05)
[2021-10-27] MEDS: SODIUM POLYSTYRENE SULFONONATE 15 GM/60 ML BTL PO (09:05)
--- NOTE | 2021-10-27 09:33 | PC.NURSE ---
Daughter Jacquie notified for home medications. Reviewed with her and confirmed. Daughter also reports that patient tested positive for Covid on 10/19 and has had symptoms since 10/17.
--- NOTE | 2021-10-27 11:45 | PC.NURSE ---
This patient, John nA, was admitted to 3 [facility] Room 320-01. Patient/family oriented to hospital policies and general routines including ID bracelet, bed and alarms, visiting hours, pain management, procedures, bathroom and other care routines, personal items, smoking policy, room service/diet, and visiting hours. Report received from Piper DUBOSE. Information on how to activate the Rapid Response Team has been discussed. Patient/Family are encouraged to report perceived risks to care and to ask questions if they do not understand what they are told or what they should do.
[2021-10-27] MEDS: LEVOTHYROXINE SODIUM 50 MCG TABLET PO (12:56)
[2021-10-27] MEDS: MEMANTINE 10 MG TABLET PO (12:56)
[2021-10-27] MEDS: FLUTICASONE PROPIONATE 0.05% NA SPR 16 GM BTL (*BKC) 2 SPRAY NASAL (12:56)
[2021-10-27 14:32] LABS: CRP 0.9 mg/dL (<1.0); Lactate Dehydrogenase 286 U/L (313-618); Magnesium 1.9 mg/dL (1.6-2.3)
[2021-10-27 14:37] LABS: NT Pro B Type Natriuretic Pept 515 pg/mL (5-100)
[2021-10-27 14:58] LABS: Lipase 129 U/L (23-300)
[2021-10-27 15:15] LABS: Thyroid Stimulating Hormone Reflex 0.093 uIU/mL (0.465-4.68)
[2021-10-27 15:15] LABS: Hemoglobin A1C 5.7 % (<5.7)
[2021-10-27 16:02] LABS: Free T4 Free Thyroxine Reflex 1.27 ng/dL (0.78-2.19)
[2021-10-27 17:20] LABS: Anion Gap 7 mmol/L (8-16); Blood Urea Nitrogen 34 mg/dL (9-20); Calcium 8.4 mg/dL (8.4-10.2); Carbon Dioxide 14 mmol/L (22-30); Chloride 117 mmol/L (98-107); Estimated CRCL calculation 35 ml/min; Estimated Glomerular Filt Rate > 60; Glucose 76 mg/dL (65-110); Sodium 138 mmol/L (137-145)
--- NOTE | 2021-10-27 17:37 | PM.IMPN ---
Progress Note: A&P Assessment and Plan (1) Acute hyperkalemia: Code(s): E87.5 - Hyperkalemia Status: Acute Assessment and Plan: RESOLVED. Likely due to severe dehydration His potassium was 6 at admission, it is now 4. Improved with 2.5 L of IV fluids. Creatinine level also improved from 1.5-1.2, other electrolytes Mag and phos are normal. Will recheck in the morning. (2) Acute kidney injury: Code(s): N17.9 - Acute kidney failure, unspecified Status: Acute Assessment and Plan: RESOLVED. admits that he was very dehydrated and that for days he had not been eating or drinking well at all. received a L of fluids yesterday and 2-1/2 L of fluids today. Creatinine improved from 1.5 to 1.0 today No renal concerns noted on CT scan of abdomen Had CT scans with contrast today, will monitor renal function in the morning with lab work Ordered strict I and O, Checking a Abd US (3) Vertigo: Code(s): R42 - Dizziness and giddiness Status: Acute Assessment and Plan: History of No complaints at this time PT and OT evaluation ordered an appreciated Will monitor for any concerns (4) CVA (cerebral vascular accident): Code(s): I63.9 - Cerebral infarction, unspecified Status: Acute Assessment and Plan: History of stroke in the past No evidence of unilateral weakness, no dysphagia noted Patient is on simvastatin, no aspirin, no anticoagulation on home meds Monitor for any new concerns No complaints at this time (5) Hypertension: Code(s): I10 - Essential (primary) hypertension Status: Acute Assessment and Plan: History of No complaints at this time EKG at admission showed sinus rhythm with peaked T-waves, likely due to high potassium level, will repeat EKG in the morning Currently on telemetry monitoring continuously Vital signs are stable, blood pressure 118/56, heart rate 50s to 60s Will monitor for any concerns (6) Pneumonia due to COVID-19 virus: Code(s): U07.1 - COVID-19; J12.82 - Pneumonia due to coronavirus disease 2019 Status: Acute Assessment and Plan: states that he got the Festus and Festus COVID vaccine as well as the booster. not tachycardic or tachypneic, SpO2 is 98 or 99% on room air, and his venous bicarb is not elevated. received a L of fluids yesterday and 2-1/2 L of fluids today. Ordered strict I and O, stool cultures, and Occult stool. Checking a Abd US, CT showed prostate is mildly enlarged. left inguinal hernia containing nonobstructed small bowel. diverticulosis of the colon without evidence of diverticulitis. appendix is normal. a small sliding hiatal hernia. no pathologically enlarged lymph nodes. no free intraperitoneal fluid. severe lumbar spondylosis. D-dimer was mildly elevated, has many diffuse and scattered wheezing with lung auscultation posteriorly, and with the COVID+ infection, ordered a CTA to rule out PE. CTA showed moderate emphysema. patchy groundglass opacities with septal thickening involving the lower lobes, right middle lobe, and lingula-consistent with COVID-19 pneumonia.. No pleural effusion. 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 heart size is normal. coronary artery calcifications. No pericardial effusion. NO pulmonary embolus. 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 severe thoracic spondylosis and severe cervical spondylosis. Tolerating COVID well, on room air, not requiring supplemental oxygen at this time, no cough noted, noted shortness of breath or dyspnea noted. He was receiving steroids and IV antibiotics from his primary care provider. Will not continue those at this time. PE and DVT prophylactic SQ Lovenox daily started (7) Hyperlipidemia: Code(s): E78.5 - Hyperlipidemia, unspecified Status: Acute Assessment and Plan: Chronic controlled with medication On the simvastati
--- NOTE | 2021-10-27 18:22 | PC.NURSE ---
Pt tested positive for Covid 10/11/2021 stated by the patient's daughter, Jacquie. Pt took a home test.
[2021-10-27 20:24] LABS: Total Triiodothyronine (T3) 0.65 NG/ML (0.97-1.69)
[2021-10-28] VITALS (13 sets, daily range): BP systolic 112–136; BP diastolic 54–62; PULSE 53–72; RESP 16–18; TEMP 36.5–37; O2SAT 7–98
[2021-10-28] MEDS: SODIUM CHLORIDE 0.9% IV 1,000 ML 60 ML IV CONT ×2 (03:27→20:20)
[2021-10-28] MEDS: LEVOTHYROXINE SODIUM 50 MCG TABLET PO (05:37)
[2021-10-28 06:56] LABS: Basophils Percent Auto 0.4 % (0.2-1.2); Eosinophils Absolute Auto 0.3 K/mm3 (0-0.3); Eosinophils Percent Auto 4.3 % (0-4.4); Hematocrit 36.8 % (42.0-52.0); Hemoglobin 12.1 g/dL (14.0-18.0); Immature Granulocyte Absolute 0.09 K/mm3 (0.00-0.031); Immature Granulocyte Percent A 1.2 % (0-0.5); Lymphocytes Absolute Auto 1.09 K/mm3 (0.9-3.2); Lymphocytes Percent Auto 14.6 % (18.3-44.2); Mean Corpuscular HGB Conc 32.9 g/dl (32-36); Mean Corpuscular Hemoglobin 29.6 pg (26-34); Mean Platelet Volume 9.7 fl (7.4-10.4); Monocytes Absolute Auto 1.2 K/mm3 (0.1-0.6); Neutrophils Absolute Auto 4.8 K/mm3 (1.3-6.7); Neutrophils Percent Auto 63.5 % (45.5-73.1); Platelet Count Result 200 k/mm3 (150-375); Red Blood Count 4.09 M/mm3 (4.6-6.20); Red Cell Distribution Width 13.7 % (11.5-14.5); White Blood Count 7.5 K/mm3 (4.5-10.0)
[2021-10-28 07:13] LABS: Anion Gap 4 mmol/L (8-16); Blood Urea Nitrogen 22 mg/dL (9-20); Calcium 8.2 mg/dL (8.4-10.2); Carbon Dioxide 16 mmol/L (22-30); Chloride 119 mmol/L (98-107); Estimated CRCL calculation 39 ml/min; Estimated Glomerular Filt Rate > 60; Glucose 90 mg/dL (65-110); Magnesium 1.8 mg/dL (1.6-2.3); Potassium 3.9 mmol/L (3.4-5.0); Sodium 139 mmol/L (137-145)
--- NOTE | 2021-10-28 08:00 | ECG_ITS ---
Measurements Intervals [place] Rate: 57 P: 12 NJ: 191 QRS: 1 QRSD: 94 T: 0 QT: 426 QTc: 418 Interpretive Statements SINUS BRADYCARDIA EARLY PRECORDIAL R/S TRANSITION CONSIDER INFERIOR INFARCT, AGE INDETERMINATE ABNORMAL ECG Electronically Signed On 10-28-2021 10:42:32 [employer] by Richard Castro D.O.
--- NOTE | 2021-10-28 08:59 | PM.IMPN ---
Progress Note: A&P Assessment and Plan (1) Acute hyperkalemia: Code(s): E87.5 - Hyperkalemia Status: Acute Assessment and Plan: RESOLVED. Likely due to severe dehydration His potassium was 6 at admission, it is now 4. Improved with 2.5 L of IV fluids. Creatinine level also improved from 1.5-1.2, other electrolytes Mag and phos are normal. Will recheck in the morning. (2) Acute kidney injury: Code(s): N17.9 - Acute kidney failure, unspecified Status: Acute Assessment and Plan: RESOLVED. admits that he was very dehydrated and that for days he had not been eating or drinking well at all. received a L of fluids yesterday and 2-1/2 L of fluids today. Creatinine improved from 1.5 to 1.0 today No renal concerns noted on CT scan of abdomen Had CT scans with contrast today, will monitor renal function in the morning with lab work Ordered strict I and O, Checking a Abd US (3) Vertigo: Code(s): R42 - Dizziness and giddiness Status: Acute Assessment and Plan: History of vertigo No complaints at this time PT and OT evaluation ordered an appreciated Will monitor for any concerns (4) CVA (cerebral vascular accident): Code(s): I63.9 - Cerebral infarction, unspecified Status: Acute Assessment and Plan: History of stroke in the past No evidence of unilateral weakness, no dysphagia noted Patient is on simvastatin, no aspirin, no anticoagulation on home meds Monitor for any new concerns No complaints at this time (5) Hypertension: Code(s): I10 - Essential (primary) hypertension Status: Acute Assessment and Plan: History of HTN No complaints at this time EKG at admission showed sinus rhythm with peaked T-waves, likely due to high potassium level, will repeat EKG in the morning Currently on telemetry monitoring continuously Vital signs are stable, blood pressure 118/56, heart rate 50s to 60s Will monitor for any concerns (6) Pneumonia due to COVID-19 virus: Code(s): U07.1 - COVID-19; J12.82 - Pneumonia due to coronavirus disease 2019 Status: Acute Assessment and Plan: STABLE. states that he got the Festus and Festus COVID vaccine as well as the booster. not tachycardic or tachypneic, SpO2 96% on room air and respiratory rate 16 to 20. received total of 3.5 L fluids for re-hydration. Ordered strict I and O, stool cultures, and Occult stool. Checking a Abd US, CT showed prostate is mildly enlarged. left inguinal hernia containing nonobstructed small bowel. diverticulosis of the colon without evidence of diverticulitis. appendix is normal. a small sliding hiatal hernia. no pathologically enlarged lymph nodes. no free intraperitoneal fluid. severe lumbar spondylosis. D-dimer was mildly elevated, has many diffuse and scattered wheezing with lung auscultation posteriorly, and with the COVID+ infection, ordered a CTA to rule out PE. CTA showed moderate emphysema. patchy groundglass opacities with septal thickening involving the lower lobes, right middle lobe, and lingula-consistent with COVID-19 pneumonia.. No pleural effusion. 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 heart size is normal. coronary artery calcifications. No pericardial effusion. NO pulmonary embolus. 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 severe thoracic spondylosis and severe cervical spondylosis. Tolerating COVID well, on room air, not requiring supplemental oxygen at this time, no cough noted, noted shortness of breath or dyspnea noted. He was receiving steroids and IV antibiotics from his primary care provider. Will not continue those at this time. PE and DVT prophylactic SQ Lovenox daily started started on scheduled nebulized DuoNeb treatments per respiratory. started incentive spirometry. (7) Hyperlipidemia: Code(s): E78.5 - Hyperlipidemia, unspecified Status:
[2021-10-28] MEDS: PANTOPRAZOLE SODIUM IV 40 MG VIAL IV PUSH (09:40)
[2021-10-28] MEDS: ENOXAPARIN 30 MG/0.3 ML SYRINGE SUB-Q (09:40)
[2021-10-28] MEDS: PSYLLIUM POWDER PACKET 1 PACKET PO (09:41)
[2021-10-28] MEDS: FLUTICASONE PROPIONATE 0.05% NA SPR 16 GM BTL (*BKC) 2 SPRAY NASAL (09:42)
[2021-10-28 11:46] LABS: IFOB Positive Control Positive; Immunochemical Fecal Occult Bl Negative (N)
[2021-10-28 12:25] LABS: Toxigenic C. Diff NEGATIVE (NEGATIVE)
[2021-10-28] MEDS: IPRATROPIUM BR 0.02% INH SOLN 0.5 MG/2.5 ML VIAL INHALATION ×2 (13:57→19:45)
[2021-10-28] MEDS: ALBUTEROL SULFATE NEB 2.5 MG/0.5 ML INH INHALATION ×2 (13:57→19:44)
--- NOTE | 2021-10-28 17:07 | WPDGICN ---
Assessment and Plan Assessment and plan (1) Nausea vomiting and diarrhea: Code(s): R11.2 - Nausea with vomiting, unspecified; R19.7 - Diarrhea, unspecified Status: Acute Assessment and Plan: this is from COVID infection recommend medical support with antiemetics, hydration, PPI, etc advance diet as tolearted no need to proceed with scopes (2) Pneumonia due to COVID-19 virus: Code(s): U07.1 - COVID-19; J12.82 - Pneumonia due to coronavirus disease 2019 Status: Acute Assessment and Plan: s/p vaccines main symptoms mostly dizziness with n/v medical support (3) Vertigo: Code(s): R42 - Dizziness and giddiness Status: Acute Assessment and Plan: new onset, probably related to covid (4) Hypertension: Code(s): I10 - Essential (primary) hypertension Status: Acute (5) Acute kidney injury: Code(s): N17.9 - Acute kidney failure, unspecified Status: Acute Assessment and Plan: resolved (6) Dehydration: Code(s): E86.0 - Dehydration Status: Acute Assessment and Plan: resolved after fluids GI Consult Note Consult date/time: 10/28/21 17:07 HPI: John An is a 81 year old male originally from [place] with history of HTN here for 5-6 days of dizziness, just feeling sick with anorexia and nausea, vomiting. He denies respiratory symptoms but diagnosed on admission with COVID, in fact had abnormal CT chest, reviewed that showed pulmonary disease consistent with COVID pneumonia. He says that received COVID vaccine including booster. He is still nauseous and dizzy. On admission was dehydrated with creatinine 1.5, now normal after treatment. Never had scopes. Review of Systems Constitutional: Constitutional: Reports weakness Eyes: Eyes: Reports no additional eye complaints ENT: Reports Normal hearing present Cardiovascular: Cardiovascular: Denies chest pain Respiratory: Respiratory: Denies dyspnea on exertion Gastrointestinal: Gastrointestinal: Reports nausea and Reports vomiting Genitourinary: Genitourinary: Denies dysuria Musculoskeletal: Musculoskeletal: Denies neck pain Integumentary/Breasts: Skin/Breast: Denies dry skin Neurologic: Comments: dizziness Psychiatric: Psychiatric: Denies behavioral changes PMFSH Past Medical History Medical History (Updated 10/28/21 @ 17:10 by Billy Braun MD) CVA (cerebral vascular accident) Dehydration Hypertension Family History Family History Mother Patient's mother is Father Patient's father is Social History Social History Smoking packs per day: 0.25 Smoking cigarettes per day: 5.0 Years smoked: 60 Smoking pack-years: 15.00 Smoking status: Current some day smoker Tobacco type: cigarettes Alcohol intake: never Substance use: never Spiritual care concerns: No Meds Home Medications and Allergies Home Medications Medication Instructions Recorded Confirmed Type alprazolam 0.25 mg PO HS 08/07/20 10/27/21 History levothyroxine 50 mcg PO DAILY 08/07/20 10/27/21 History memantine 10 mg PO HS 08/07/20 10/27/21 History mirtazapine 30 mg PO HS 08/07/20 10/27/21 History pantoprazole 40 mg PO DAILY 08/07/20 10/27/21 History simvastatin 40 mg PO HS 08/07/20 10/27/21 History azithromycin [Zithromax Z-Abhay] See Rx Instructions .ROUTE .COMPLEX 10/27/21 10/27/21 History fluticasone propionate [Flonase] 1 spray INTRANASAL DAILY 10/27/21 10/27/21 History lisinopril 10 mg PO Q12H 10/27/21 10/27/21 History meclizine 12.5 mg PO Q12H 10/27/21 10/27/21 History methylprednisolone [Medrol (Abhay)] 4 mg PO DAILY 10/27/21 10/27/21 History psyllium husk [Daily Fiber] 0.4 g PO DAILY 10/27/21 10/27/21 History Allergies Allergy/AdvReac Type Severity Reaction Status Date / Time No Known Allergies
[2021-10-28] MEDS: MECLIZINE HCL 12.5 MG TABLET PO (18:46)
[2021-10-28] MEDS: MEMANTINE 10 MG TABLET PO (20:15)
[2021-10-28] MEDS: FAMOTIDINE 20 MG/2 ML VIAL IV PUSH (20:15)
[2021-10-29] VITALS (16 sets, daily range): BP systolic 113–139; BP diastolic 48–68; PULSE 56–71; RESP 14–17; TEMP 36.7–37.1; O2SAT 96–100
[2021-10-29] MEDS: IPRATROPIUM BR 0.02% INH SOLN 0.5 MG/2.5 ML VIAL INHALATION ×3 (02:53→14:38)
[2021-10-29] MEDS: ALBUTEROL SULFATE NEB 2.5 MG/0.5 ML INH INHALATION ×3 (02:53→14:38)
[2021-10-29] MEDS: LEVOTHYROXINE SODIUM 50 MCG TABLET PO (05:26)
[2021-10-29 06:33] LABS: Basophils Percent Auto 0.2 % (0.2-1.2); Eosinophils Absolute Auto 0.2 K/mm3 (0-0.3); Hematocrit 33.4 % (42.0-52.0); Immature Granulocyte Absolute 0.08 K/mm3 (0.00-0.031); Lymphocytes Percent Auto 13.4 % (18.3-44.2); Mean Corpuscular HGB Conc 32.9 g/dl (32-36); Mean Corpuscular Hemoglobin 30.1 pg (26-34); Mean Corpuscular Volume 91.3 fl (80-100); Mean Platelet Volume 9.6 fl (7.4-10.4); Monocytes Absolute Auto 1.2 K/mm3 (0.1-0.6); Monocytes Percent Auto 15.1 % (2.6-8.5); Neutrophils Absolute Auto 5.6 K/mm3 (1.3-6.7); Neutrophils Percent Auto 68.3 % (45.5-73.1); Platelet Count Result 184 k/mm3 (150-375); Red Blood Count 3.66 M/mm3 (4.6-6.20); Red Cell Distribution Width 13.5 % (11.5-14.5); White Blood Count 8.2 K/mm3 (4.5-10.0)
[2021-10-29 06:54] LABS: Alanine Aminotransferase 15 U/L (4-50); Alkaline Phosphatase 82 U/L (38-126); Anion Gap 4 mmol/L (8-16); Aspartate Amino Transferase 19 U/L (17-59); Bilirubin,Total 0.4 mg/dL (0.2-1.3); Blood Urea Nitrogen 13 mg/dL (9-20); Calcium 7.8 mg/dL (8.4-10.2); Carbon Dioxide 16 mmol/L (22-30); Chloride 117 mmol/L (98-107); Estimated CRCL calculation 43 ml/min; Estimated Glomerular Filt Rate > 60; Glucose 101 mg/dL (65-110); Potassium 3.4 mmol/L (3.4-5.0); Sodium 137 mmol/L (137-145)
[2021-10-29] MEDS: MECLIZINE HCL 12.5 MG TABLET PO ×2 (09:18→17:11)
[2021-10-29] MEDS: ENOXAPARIN 30 MG/0.3 ML SYRINGE SUB-Q (09:18)
[2021-10-29] MEDS: FAMOTIDINE 20 MG/2 ML VIAL IV PUSH ×2 (09:19→20:54)
[2021-10-29] MEDS: PANTOPRAZOLE SODIUM IV 40 MG VIAL IV PUSH (09:19)
[2021-10-29] MEDS: FLUTICASONE PROPIONATE 0.05% NA SPR 16 GM BTL (*BKC) 2 SPRAY NASAL (09:20)
--- NOTE | 2021-10-29 10:47 | WPDGIPROGNO ---
Progress Note: A&P Assessment and Plan (1) Nausea vomiting and diarrhea: Code(s): R11.2 - Nausea with vomiting, unspecified; R19.7 - Diarrhea, unspecified Status: Acute Assessment and Plan: he is slowly feeling better this is from covid infection symptomatic treatment will follow from af[place], call if questions (2) Pneumonia due to COVID-19 virus: Code(s): U07.1 - COVID-19; J12.82 - Pneumonia due to coronavirus disease 2019 Status: Acute Assessment and Plan: CT chest reviewed, denies cough or shortness of breath (3) Vertigo: Code(s): R42 - Dizziness and giddiness Status: Acute (4) Hypertension: Code(s): I10 - Essential (primary) hypertension Status: Acute (5) Colon cancer screening: Code(s): Z12.11 - Encounter for screening for malignant neoplasm of colon Status: Acute Assessment and Plan: he never had a colonoscopy and would like to have one at some point, at baseline he is in a good shape for his age probably in 2-3 months after fully recovered from covid, my office will set up Subjective Date/time seen: 10/29/21 10:47 Interval history: slowly feeling better with less vertigo and less nausea, tolerating bland diet but still poor appetite Review of Systems Review of Systems: All systems reviewed & are unremarkable except as noted in HPI and below Exam Const: General: comfortable and no acute distress HENMT: General nose exam: Normal nares present Eyes: General: appearance normal, both eyes and all related structures Neck: Neck: no JVD Resp: Auscultation: clear to auscultation bilaterally Cardio: Rate: regular rate Rhythm: regular rhythm GI: Inspection: non-distended GI Palp: Yes Soft to palpation and No Guarding due to palpation present (GI) Auscultation: normal bowel sounds Skin: General skin exam: normal color Neuro: Speech: normal speech Motor exam (neuro): Normal motor muscle tone present throughout Extrem: General: normal to inspection Psych: Mental Status: mental status grossly normal Objective Data Vital Signs Vital Signs: Vital Signs - 24 hr 10/28/21 11:59 10/28/21 12:48 10/28/21 13:57 Temperature 98.6 F Pulse Rate 59 L 60 59 L Respiratory Rate 16 16 Blood Pressure 112/57 L Pulse Oximetry 95 10/28/21 14:00 10/28/21 15:55 10/28/21 15:57 Temperature 98.6 F 97.8 F Pulse Rate 67 66 Respiratory Rate 18 18 Blood Pressure 136/54 L 136/54 L Pulse Oximetry 98 7 L 97 10/28/21 16:00 10/28/21 19:43 10/28/21 20:00 Temperature 98.2 F Pulse Rate 62 62 66 Respiratory Rate 16 18 Blood Pressure 126/62 Pulse Oximetry 97 10/28/21 20:12 10/29/21 00:00 10/29/21 02:52 Temperature 98.1 F Pulse Rate 66 59 L 60 Respiratory Rate 16 17 16 Blood Pressure 125/53 L Pulse Oximetry 98 10/29/21 04:00 10/29/21 08:00 10/29/21 08:24 Temperature 98.8 F 98.2 F Pulse Rate 56 L 59 L 59 L Respiratory Rate 15 14 16 Blood Pressure 120/56 L 128/65 Pulse Oximetry 97 96 10/29/21 08:34 Temperature Pulse Rate 62 Respiratory Rate 16 Blood Pressure Pulse Oximetry 96 Intake/Output Intake/Output: Intake & Output 10/26/21 10/27/21 10/28/21 10/29/21 23:59 23:59 23:59 23:59 Intake Total 1000 2680 2500 790 Output Total 400 Balance 1000 2680 2500 390 Meds/Results Medications: Active Medications Generic Name Dose Route Start Last Admin Trade Name Freq PRN Reason Stop Dose Admin Albuterol 2.5 mg 10/28/21 14:00 10/29/21 08:24 Albuterol Sulfate Neb 2.5 Mg/0.5 Ml Inh INHALATION 2.5 mg Q6HRT AISHA Administration Enoxaparin Sodium 30 mg 10/28/21 09:00 10/29/21 09:18 Enoxaparin 30 Mg/0.3 Ml Syringe SUB-Q 30 mg DAILY AISHA Administration Famotidine 20 mg 10/28/21 21:00 10/29/21 09:19 Famotidine 20 Mg/2 Ml Vial IV PUSH 20 mg Q12HR AISHA Administration Fluticasone Propionate 2 spray 10/27/21 11:20 10/29/21 09:20 Fluticasone Propionate 0.05
--- NOTE | 2021-10-29 15:13 | PM.IMPN ---
Progress Note: A&P Assessment and Plan (1) Nausea vomiting and diarrhea: Code(s): R11.2 - Nausea with vomiting, unspecified; R19.7 - Diarrhea, unspecified Status: Acute Assessment and Plan: Due to COVID-19 N/v resolved Stools returning to NL PO intake improved D/w patient's son at bedside by phone (2) Pneumonia due to COVID-19 virus: Code(s): U07.1 - COVID-19; J12.82 - Pneumonia due to coronavirus disease 2019 Status: Acute Assessment and Plan: Stable GI sx's with dehyration were predominant Remains on R/a (3) Acute hyperkalemia: Code(s): E87.5 - Hyperkalemia Status: Acute Assessment and Plan: RESOLVED. Likely due to severe dehydration His potassium was 6 at admission on 10/26, 10/29 3.4 Improved with 2.5 L of IV fluids. Creatinine level also improved from 1.5 10/26 to 10/29 0.8 Mild hyperchloremic acidosis from IV saline. F/u labs. (4) Acute kidney injury: Code(s): N17.9 - Acute kidney failure, unspecified Status: Acute Assessment and Plan: RESOLVED. Admits that he was very dehydrated and that for days he had not been eating or drinking well at all. Creatinine improved from 1.5 10/26, 2. 0.8 No renal concerns noted on CT scan of abdomen (5) Vertigo: Code(s): R42 - Dizziness and giddiness Status: Acute Assessment and Plan: Lightheaded 10/29 Denied spinning or nausea Worse when upright F/u othrostatic BP Increase PO intake Add NaHC03 tabs (6) CVA (cerebral vascular accident): Qualifiers: CVA mechanism: unspecified Qualified Code(s): I63.9 - Cerebral infarction, unspecified Code(s): I63.9 - Cerebral infarction, unspecified Status: Acute Assessment and Plan: History of stroke in the past No obvious sequelae (7) Hypertension: Qualifiers: Hypertension type: unspecified Qualified Code(s): I10 - Essential (primary) hypertension Code(s): I10 - Essential (primary) hypertension Status: Acute Assessment and Plan: 10/29 BP reviewed and adequately controlled (8) Hypothyroidism: Qualifiers: Hypothyroidism type: unspecified Qualified Code(s): E03.9 - Hypothyroidism, unspecified Code(s): E03.9 - Hypothyroidism, unspecified Status: Acute Assessment and Plan: Chronic controlled with medication Levothyroxine 50 mcg daily (9) Protein-calorie malnutrition, moderate: Code(s): E44.0 - Moderate protein-calorie malnutrition Status: Acute Assessment and Plan: Due to recent COVID-19 Added Ensure Clear 10/29 Subjective Date/time seen: 10/29/21 15:13 Interval history: Admitted with COVID-19 pneumonia, nausea vomiting diarrhea, dehydration. 10/29 visit. Eating much better. No nausea vomiting or diarrhea. Feels off balance when he gets up. Tolerated physical therapy however. Walk to the bathroom with assistance. MIld MARCUS. No chest pain. Continues on R/a. Still too unsteady on his feet to go home. Has a little blood on toilet tissue when he wipes. Schedule have a colonoscopy as an outpatient with his primary care provider, Dr. Steiner. Review of Systems Review of Systems: All systems reviewed & are unremarkable except as noted in HPI and below Exam Narrative: HEENT: PERRL, sclerae nonicteric, pharyngeal mucosa pink and intact NECK: No JVD CHEST: Clear to auscultation. Normal effort. HEART: NL S1/S2, regular, no murmur ABDOMEN: BS+, soft, nontender, no mass, no bruits EXTREMITIES: No cyanosis, edema, or clubbing NEUROLOGIC: CN intact and symmetric to inspection. MUSCULOSKELETAL: Tone and strength symmetric. PSYCH: Alert. Oriented to person, place, and time. Objective Data Vital Signs Vital Signs: Vital Signs - 24 hr 10/28/21 15:55 10/28/21 15:57 10/28/21 16:00 Temperature 98.6 F 97.8 F Pulse Rate 67 66 62 Respiratory Rate 18 18 Blood Pressure 136/54 L 136/54 L Pulse Oximetry 7 L 97
[2021-10-29] MEDS: SODIUM BICARBONATE TAB 650 MG TABLET PO (17:11)
[2021-10-29] MEDS: POTASSIUM CHLORIDE 20 MEQ TABLET 40 MEQ PO (17:12)
[2021-10-29] MEDS: SODIUM CHLORIDE 0.9% IV 1,000 ML 60 ML IV CONT (17:15)
[2021-10-29] MEDS: MEMANTINE 10 MG TABLET PO (20:55)
[2021-10-30] VITALS (12 sets, daily range): BP systolic 121–144; BP diastolic 48–67; PULSE 58–68; RESP 16–202; TEMP 36.9–37.6; O2SAT 95–100
--- NOTE | 2021-10-30 05:44 | PC.NURSE ---
0520 Pt found with no respirations or pulse. Charge Nurse Barbara valera pt . Re Hospicenotified, Joanna pts daughter was notified. Dr Petit notified.
[2021-10-30 05:56] LABS: Basophils Percent Auto 0.3 % (0.2-1.2); Eosinophils Absolute Auto 0.2 K/mm3 (0-0.3); Eosinophils Percent Auto 2.1 % (0-4.4); Hematocrit 30.8 % (42.0-52.0); Hemoglobin 10.4 g/dL (14.0-18.0); Immature Granulocyte Absolute 0.06 K/mm3 (0.00-0.031); Immature Granulocyte Percent A 0.8 % (0-0.5); Lymphocytes Absolute Auto 0.98 K/mm3 (0.9-3.2); Lymphocytes Percent Auto 12.8 % (18.3-44.2); Mean Corpuscular HGB Conc 33.8 g/dl (32-36); Mean Corpuscular Hemoglobin 29.7 pg (26-34); Mean Platelet Volume 9.7 fl (7.4-10.4); Monocytes Absolute Auto 1.4 K/mm3 (0.1-0.6); Monocytes Percent Auto 18.7 % (2.6-8.5); Neutrophils Percent Auto 65.3 % (45.5-73.1); Platelet Count Result 173 k/mm3 (150-375); Red Cell Distribution Width 13.5 % (11.5-14.5); White Blood Count 7.7 K/mm3 (4.5-10.0)
[2021-10-30 06:18] LABS: Alanine Aminotransferase 13 U/L (4-50); Albumin Level 2.8 g/dL (3.5-5.1); Alkaline Phosphatase 72 U/L (38-126); Anion Gap 6 mmol/L (8-16); Aspartate Amino Transferase 21 U/L (17-59); Bilirubin,Total 0.4 mg/dL (0.2-1.3); Blood Urea Nitrogen 8 mg/dL (9-20); Calcium 7.7 mg/dL (8.4-10.2); Carbon Dioxide 16 mmol/L (22-30); Chloride 119 mmol/L (98-107); Estimated CRCL calculation 43 ml/min; Estimated Glomerular Filt Rate > 60; Glucose 110 mg/dL (65-110); Magnesium 1.6 mg/dL (1.6-2.3); Phosphorus 2.6 mg/dL (2.5-4.5); Potassium 3.5 mmol/L (3.4-5.0); Sodium 141 mmol/L (137-145)
[2021-10-30] MEDS: LEVOTHYROXINE SODIUM 50 MCG TABLET PO (06:29)
[2021-10-30] MEDS: SODIUM CHLORIDE 0.9% IV 1,000 ML 60 ML IV CONT (06:30)
[2021-10-30] MEDS: FLUTICASONE PROPIONATE 0.05% NA SPR 16 GM BTL (*BKC) 2 SPRAY NASAL (08:38)
[2021-10-30] MEDS: FAMOTIDINE 20 MG TABLET PO ×2 (08:39→21:40)
[2021-10-30] MEDS: SODIUM BICARBONATE TAB 650 MG TABLET PO ×2 (08:39→17:04)
[2021-10-30] MEDS: MECLIZINE HCL 12.5 MG TABLET PO ×2 (08:39→17:04)
[2021-10-30] MEDS: ENOXAPARIN 30 MG/0.3 ML SYRINGE SUB-Q (08:39)
[2021-10-30] MEDS: PANTOPRAZOLE SODIUM IV 40 MG VIAL IV PUSH (08:41)
[2021-10-30] MEDS: KCL 20 MEQ/0.45% NS 1,000 ML 50 ML IV CONT (08:41)
--- NOTE | 2021-10-30 10:21 | PM.IMPN ---
Progress Note: A&P Assessment and Plan (1) Nausea vomiting and diarrhea: Code(s): R11.2 - Nausea with vomiting, unspecified; R19.7 - Diarrhea, unspecified Status: Acute Assessment and Plan: Due to COVID-19 N/v resolved Stools returning to NL PO intake improved D/w patient's by phone with his daughter, Jacquie, that the limiting factor for his discharges is oral intake. (2) Pneumonia due to COVID-19 virus: Code(s): U07.1 - COVID-19; J12.82 - Pneumonia due to coronavirus disease 2019 Status: Acute Assessment and Plan: Stable GI sx's with dehyration were predominant Remains on R/a (3) Acute hyperkalemia: Code(s): E87.5 - Hyperkalemia Status: Acute Assessment and Plan: RESOLVED. Likely due to severe dehydration His potassium was 6 at admission on 10/26, 10/29 3.4, 10/30 3.5 Improved with 2.5 L of IV fluids. Creatinine level also improved from 1.5 10/26 to 10/29 0.8 Mild hyperchloremic acidosis from IV saline. F/u labs. (4) Acute kidney injury: Code(s): N17.9 - Acute kidney failure, unspecified Status: Acute Assessment and Plan: RESOLVED. Admits that he was very dehydrated and that for days he had not been eating or drinking well at all. Creatinine improved from 1.5 10/26, 10/29 0.8, 10/30 0.8 No renal concerns noted on CT scan of abdomen (5) Vertigo: Code(s): R42 - Dizziness and giddiness Status: Acute Assessment and Plan: Lightheaded 10/29 Denied spinning or nausea Worse when upright F/u othrostatic BP Increase PO intake Add NaHC03 tabs (6) CVA (cerebral vascular accident): Qualifiers: CVA mechanism: unspecified Qualified Code(s): I63.9 - Cerebral infarction, unspecified Code(s): I63.9 - Cerebral infarction, unspecified Status: Acute Assessment and Plan: History of stroke in the past No obvious sequelae (7) Hypertension: Qualifiers: Hypertension type: unspecified Qualified Code(s): I10 - Essential (primary) hypertension Code(s): I10 - Essential (primary) hypertension Status: Acute Assessment and Plan: 10/29 BP reviewed and adequately controlled (8) Hypothyroidism: Qualifiers: Hypothyroidism type: unspecified Qualified Code(s): E03.9 - Hypothyroidism, unspecified Code(s): E03.9 - Hypothyroidism, unspecified Status: Acute Assessment and Plan: Chronic controlled with medication Levothyroxine 50 mcg daily (9) Protein-calorie malnutrition, moderate: Code(s): E44.0 - Moderate protein-calorie malnutrition Status: Acute Assessment and Plan: Due to recent COVID-19 Added Ensure Clear 10/29 Subjective Date/time seen: 10/30/21 10:21 Interval history: 10/30 visit. Poor appetite. According to his daughter, Jacquie, this is a chronic issue. However with COVID in his worsen. He is drinking all of his Ensure Clear supplements daily. No further diarrhea. Denied pain. Dizziness has resolved. Review of Systems Review of Systems: All systems reviewed & are unremarkable except as noted in HPI and below Exam Narrative: HEENT: PERRL, sclerae nonicteric, pharyngeal mucosa pink and intact NECK: No JVD CHEST: Clear to auscultation. Normal effort. HEART: NL S1/S2, regular, no murmur ABDOMEN: BS+, soft, nontender, no mass, no bruits EXTREMITIES: No cyanosis, edema, or clubbing NEUROLOGIC: CN intact and symmetric to inspection. MUSCULOSKELETAL: Tone and strength symmetric. PSYCH: Alert. Oriented to person, place, and time Objective Data Vital Signs Vital Signs: Vital Signs - 24 hr 10/29/21 12:00 10/29/21 14:39 10/29/21 14:47 Temperature 98.2 F Pulse Rate 71 56 L 58 L Respiratory Rate 14 16 16 Blood Pressure 139/58 L Pulse Oximetry 96 10/29/21 16:00 10/29/21 16:52 10/29/21 20:00 Temperature 98.1 F 98.6 F Pulse Rate 62 60 Respiratory Rate 14 15 Blood Pressure 113/48 L 126/50 L 131/53 L
[2021-10-30] MEDS: MAGNESIUM SULF 2 GM/WATER 50ML 2 GM/50 ML BAG IVPB (15:51)
[2021-10-30] MEDS: MEMANTINE 10 MG TABLET PO (21:40)
[2021-10-31] VITALS (7 sets, daily range): BP systolic 107–126; BP diastolic 44–63; PULSE 56–61; RESP 16–18; TEMP 36.6–36.9; O2SAT 95–98
[2021-10-31] MEDS: KCL 20 MEQ/0.45% NS 1,000 ML 50 ML IV CONT (05:07)
[2021-10-31 09:36] LABS: Basophils Percent Auto 0.2 % (0.2-1.2); Eosinophils Absolute Auto 0.2 K/mm3 (0-0.3); Eosinophils Percent Auto 2.1 % (0-4.4); Hematocrit 29.6 % (42.0-52.0); Hemoglobin 9.9 g/dL (14.0-18.0); Immature Granulocyte Absolute 0.05 K/mm3 (0.00-0.031); Immature Granulocyte Percent A 0.6 % (0-0.5); Lymphocytes Absolute Auto 0.99 K/mm3 (0.9-3.2); Lymphocytes Percent Auto 12.1 % (18.3-44.2); Mean Corpuscular HGB Conc 33.4 g/dl (32-36); Mean Corpuscular Hemoglobin 29.6 pg (26-34); Mean Corpuscular Volume 88.6 fl (80-100); Mean Platelet Volume 9.9 fl (7.4-10.4); Monocytes Absolute Auto 1.3 K/mm3 (0.1-0.6); Monocytes Percent Auto 16.2 % (2.6-8.5); Neutrophils Absolute Auto 5.6 K/mm3 (1.3-6.7); Neutrophils Percent Auto 68.8 % (45.5-73.1); Platelet Count Result 180 k/mm3 (150-375); Red Blood Count 3.34 M/mm3 (4.6-6.20); Red Cell Distribution Width 13.5 % (11.5-14.5); White Blood Count 8.2 K/mm3 (4.5-10.0)
[2021-10-31 09:48] LABS: Alanine Aminotransferase 12 U/L (4-50); Albumin Level 2.6 g/dL (3.5-5.1); Alkaline Phosphatase 64 U/L (38-126); Anion Gap 2 mmol/L (8-16); Aspartate Amino Transferase 16 U/L (17-59); Bilirubin,Total 0.5 mg/dL (0.2-1.3); Blood Urea Nitrogen 7 mg/dL (9-20); Carbon Dioxide 20 mmol/L (22-30); Chloride 112 mmol/L (98-107); Estimated CRCL calculation 49 ml/min; Estimated Glomerular Filt Rate > 60; Glucose 92 mg/dL (65-110); Potassium 4.1 mmol/L (3.4-5.0); Sodium 134 mmol/L (137-145)
[2021-10-31] MEDS: MECLIZINE HCL 12.5 MG TABLET PO (10:23)
[2021-10-31] MEDS: SODIUM BICARBONATE TAB 650 MG TABLET PO (10:23)
[2021-10-31] MEDS: ENOXAPARIN 30 MG/0.3 ML SYRINGE SUB-Q (10:23)
[2021-10-31] MEDS: PANTOPRAZOLE SODIUM IV 40 MG VIAL IV PUSH (10:23)
[2021-10-31] MEDS: FAMOTIDINE 20 MG TABLET PO (10:23)
[2021-10-31] MEDS: FLUTICASONE PROPIONATE 0.05% NA SPR 16 GM BTL (*BKC) 2 SPRAY NASAL (10:24)
--- NOTE | 2021-10-31 12:02 | PM.DS ---
DS: Admitting Diagnosis Discharge Date 10/31/2021 Admitting Diagnosis Nausea vomiting DS: Discharge Diagnosis Discharge Diagnosis (1) Nausea vomiting and diarrhea: Code(s): R11.2 - Nausea with vomiting, unspecified; R19.7 - Diarrhea, unspecified Status: Acute Assessment and Plan: Due to COVID-19 N/v resolved Stools returning to NL PO intake improved D/w patient's by phone with his daughter, Jacquie, that the limiting factor for his discharges is oral intake. (2) Pneumonia due to COVID-19 virus: Code(s): U07.1 - COVID-19; J12.82 - Pneumonia due to coronavirus disease 2018 Status: Acute Assessment and Plan: Stable GI sx's with dehyration were predominant Remains on R/a (3) Acute hyperkalemia: Code(s): E87.5 - Hyperkalemia Status: Acute Assessment and Plan: RESOLVED. Likely due to severe dehydration His potassium was 6 at admission on 10/26, 10/29 3.4, 10/30 3.5 Improved with 2.5 L of IV fluids. Creatinine level also improved from 1.5 10/26 to 10/29 0.8 Mild hyperchloremic acidosis from IV saline. F/u labs. (4) Acute kidney injury: Code(s): N17.9 - Acute kidney failure, unspecified Status: Acute Assessment and Plan: RESOLVED. Admits that he was very dehydrated and that for days he had not been eating or drinking well at all. Creatinine improved from 1.5 10/26, 10/29 0.8, 10/30 0.8 No renal concerns noted on CT scan of abdomen (5) Vertigo: Code(s): R42 - Dizziness and giddiness Status: Acute Assessment and Plan: Lightheaded 10/29 Denied spinning or nausea Worse when upright F/u othrostatic BP Increase PO intake Add NaHC03 tabs (6) CVA (cerebral vascular accident): Qualifiers: CVA mechanism: unspecified Qualified Code(s): I63.9 - Cerebral infarction, unspecified Code(s): I63.9 - Cerebral infarction, unspecified Status: Acute Assessment and Plan: History of stroke in the past No obvious sequelae (7) Hypertension: Qualifiers: Hypertension type: unspecified Qualified Code(s): I10 - Essential (primary) hypertension Code(s): I10 - Essential (primary) hypertension Status: Acute Assessment and Plan: 10/29 BP reviewed and adequately controlled (8) Hypothyroidism: Qualifiers: Hypothyroidism type: unspecified Qualified Code(s): E03.9 - Hypothyroidism, unspecified Code(s): E03.9 - Hypothyroidism, unspecified Status: Acute Assessment and Plan: Chronic controlled with medication Levothyroxine 50 mcg daily (9) Protein-calorie malnutrition, moderate: Code(s): E44.0 - Moderate protein-calorie malnutrition Status: Acute Assessment and Plan: Due to recent COVID-19 Added Ensure Clear 10/29 DS: Summary Hospital Course Reason for hospitalization: Chief Complaint: Nausea vomiting Narrative: This is an 81-year-old man who presents to the ED with nausea and vomiting which is nonbilious nonverbal bloody since past 3 days. He denies any abdominal pain. He does report some diarrhea but is not able to quantify how much he is going. He denies any fever or chills cough or shortness of breath. He states every time he eats he throws of and is not able to hold anything down. He otherwise denies any other complaints and states she is dehydrated and hence came to the ER. He had been given fluid in the ER. In the ER evaluation he is noted to have hyperkalemia with potassium was 6 with metabolic acidosis along with creatinine of 1.5. CT abdomen and pelvis did not reveal any acute abdominal pathology however noted bilateral pneumonia and lower lung mike. He was then swab for COVID which did turn positive. He is getting admitted for further evaluation and management under observation status Hospital Course: Due to COVID-19 N/v resolved Stools returning to NL PO intake improved D/w patient's by phone with his daughter, Jacquie, that
[2021-11-02 07:01] LABS: Norovirus RNA PCR, Stool NOT DETECTED
[2021-11-04 18:55] LABS: Rotavirus Stool Not Detected
== END 2021-10-31 13:30 | disposition home health service (06) | DRG 177 ==
LOC: ANHED 20:13 → ANH3MEDSUR 10-27 13:42 → ANH2MED 11-07 08:56 → ANH3MEDSUR 11-07 08:56
PROVIDERS: Family Medicine; Internal Medicine; Nurse Practitioner; Admitting Provider Internal Medicine; Emergency Provider Emergency Medicine; PCP Physician Assistant; Visit Provider Family Medicine
DX: U07.1 COVID-19 (principal); J12.82 Pneumonia due to coronavirus disease 2019; N17.9 Acute kidney failure, unspecified; E87.2 Acidosis; E44.0 Moderate protein-calorie malnutrition; E87.5 Hyperkalemia; E86.0 Dehydration; E03.9 Hypothyroidism, unspecified; E78.5 Hyperlipidemia, unspecified; K21.9 Gastro-esophageal reflux disease without esophagitis; I10 Essential (primary) hypertension; K29.60 Other gastritis without bleeding; F03.90 Unspecified dementia, unspecified severity, without behavioral disturbance, psychotic disturbance, mood disturbance, and anxiety; Z86.73 Personal history of transient ischemic attack (TIA), and cerebral infarction without residual deficits; Z68.20 Body mass index [BMI] 20.0-20.9, adult
CPT/HCPCS: 36415; 71275; 74176; 76700; 80048; 80053; 81001; 82274; 82728; 83036; 83605; 83615; 83690; 83735; 83880; 84100; 84439; 84443; 84480; 85025; 85380; 86140; 87045; 87177; 87209; 87269; 87272; 87425; 87427; 87493; 87798; 89055; 93005; 94640; 96361; 96374; 96375; 97161; 97165; 99285; A9270; C9113; C9803; J0610; J1650; J1815; J2405; J3475; J7030; J7120; Q9967; U0003; U0005

== ENCOUNTER 2021-11-30 14:30 | Outpatient (CLI) | payer MEDICARE, MEDICAID, SELFPAY ==
--- NOTE | ~2021-11-30 | XR_ITS ---
XR chest 2V 11/30/2021 14:55 Indication: Fatigue. Pneumonia. Covid. Procedure: Two-view chest Comparison: Comparison to multiple prior studies sequentially, with oldest reviewed study dated 10/14. Findings: Heart size normal. There is atherosclerosis and ectasia of the aorta. There is focal aneury smal dilation of the descending thoracic aorta corresponding to aneurysm seen on recent CTA dated 10/18. No focal air space disease, pulmonary edema, pleural effusion or suspected pneumothorax. Impression: 1: No acute cardiopulmonary disease. Reviewed, dictated and finalized at location B. Impression: 1: No acute cardiopulmonary disease.
== END 2021-11-30 14:31 | disposition home or self-care (01) ==
PROVIDERS: PCP Physician Assistant; Visit Provider Physician Assistant
DX: U07.1 COVID-19 (principal); J12.82 Pneumonia due to coronavirus disease 2019; R53.83 Other fatigue
CPT/HCPCS: 71046

== ENCOUNTER 2022-01-02 18:34 | Emergency (ER) | payer MEDICARE, MEDICAID, SELFPAY ==
[2022-01-02] VITALS (17 sets, daily range): BP systolic 114–151; BP diastolic 62–103; PULSE 59–86; RESP 14–26; TEMP 36.6; O2SAT 93–100
--- NOTE | ~2022-01-02 | XR_ITS ---
EXAMINATION: XR chest 2V Exam Date/Time: 01/02/2022 18:55 CDT CLINICAL HISTORY: chest pain Comparison: 11/30/2021. RESULT: Lines, tubes, and devices: Cholecystectomy clips. Lungs and pleura: Senescent changes. Cardiomediastinal silhouette: Stable cardiomediastinal silhouette. Stable descending thoracic aortic aneurysm. Other: No acute osseous or upper abdominal finding. IMPRESSION: No acute cardiopulmonary process Reviewed, dictated and finalized at location K.
--- NOTE | 2022-01-02 18:53 | ECG_ITS ---
Measurements Intervals [place] Rate: 66 P: 93 LA: 183 QRS: 2 QRSD: 100 T: 7 QT: 411 QTc: 431 Interpretive Statements SINUS RHYTHM INFERIOR MYOCARDIAL INFARCTION , PROBABLY OLD WITH POSTERIOR EXTENSION Electronically Signed On 01-03-2022 11:09:37 CDT by Alonzo Smith M.D.
[2022-01-02 19:24] LABS: Basophils Percent Auto 0.4 % (0.2-1.2); Eosinophils Absolute Auto 0.2 K/mm3 (0-0.3); Hematocrit 39.7 % (42.0-52.0); Hemoglobin 12.7 g/dL (14.0-18.0); Immature Granulocyte Absolute 0.03 K/mm3 (0.00-0.031); Immature Granulocyte Percent A 0.3 % (0-0.5); Lymphocytes Absolute Auto 1.42 K/mm3 (0.9-3.2); Lymphocytes Percent Auto 13.4 % (18.3-44.2); Mean Corpuscular Hemoglobin 28.1 pg (26-34); Mean Corpuscular Volume 87.8 fl (80-100); Mean Platelet Volume 10.1 fl (7.4-10.4); Monocytes Absolute Auto 1.3 K/mm3 (0.1-0.6); Monocytes Percent Auto 11.8 % (2.6-8.5); Neutrophils Absolute Auto 7.6 K/mm3 (1.3-6.7); Neutrophils Percent Auto 72.1 % (45.5-73.1); Platelet Count Result 217 k/mm3 (150-375); Red Blood Count 4.52 M/mm3 (4.6-6.20); Red Cell Distribution Width 14.1 % (11.5-14.5); White Blood Count 10.6 K/mm3 (4.5-10.0)
--- NOTE | 2022-01-02 19:30 | ED.CHESTPAIN ---
HPI - Chest Pain General Chief Complaint: Chest Pain Stated Complaint: chest pain x hours Time Seen by Provider: 01/02/22 19:05 Source: patient, RN notes reviewed and old records reviewed Limitations: no limitations History of Present Illness HPI narrative: 81-year-old male presented to the emergency department for evaluation of chest pain. Patient does have a previous history of hypertension but denies any prior history of NM. Patient states when he woke up this morning he had some left-sided chest pain that was worsened with movement. Patient denies any radiation of the pain to his back arms or neck. Patient states the pain did persist for a greater portion of the day and his daughter encouraged him to present to the emerge department for evaluation. Patient states that he has no current chest pain at this time. Patient denies any associated shortness of breath. Patient denies any associated nausea vomiting or diarrhea. Patient did have a hospitalization recently for dehydration secondary to diarrhea and Covid. Patient states since being discharged he has felt well. Patient does not suspect he has any current dehydration. Patient states that he recently quit smoking. Related Data Home Medications Medication Instructions Recorded Confirmed alprazolam 0.25 mg PO HS 08/07/20 10/27/21 levothyroxine 50 mcg PO DAILY 08/07/20 10/27/21 memantine 10 mg PO HS 08/07/20 10/27/21 mirtazapine 30 mg PO HS 08/07/20 10/27/21 pantoprazole 40 mg PO DAILY 08/07/20 10/27/21 simvastatin 40 mg PO HS 08/07/20 10/27/21 fluticasone propionate 1 spray INTRANASAL DAILY 10/27/21 10/27/21 lisinopril 10 mg PO Q12H 10/27/21 10/27/21 meclizine 12.5 mg PO Q12H 10/27/21 10/27/21 psyllium husk [Daily Fiber] 0.4 g PO DAILY 10/27/21 10/27/21 Allergies Allergy/AdvReac Type Severity Reaction Status Date / Time No Known Allergies Allergy Verified 10/27/21 12:57 Review of Systems Review of Systems: CONSTITUTIONAL: Denies fever, chills, or sweats. EYES: Denies visual changes, redness, or discharge. ENT: Denies rhinorrhea, congestion, sore throat, or otalgia. CARDIOVASCULAR: See HPI RESPIRATORY: Denies cough or dyspnea. GASTROINTESTINAL: Denies abdominal pain, nausea, vomiting, or diarrhea. GENITOURINARY: Denies dysuria or hematuria. SKIN: Denies rash or itching. MUSCULOSKELETAL: Denies back pain, joint pain, or myalgia. NEUROLOGIC: Denies headache, numbness, or weakness. [facility] Past Medical History Medical History (Updated 01/02/22 @ 23:31 by Cameron Diaz MD) Colon cancer screening CVA (cerebral vascular accident) Dehydration Hypertension Family History Family History Mother Patient's mother is Father Patient's father is Social History Social History Smoking packs per day: 0.25 Smoking cigarettes per day: 5.0 Years smoked: 60 Smoking pack-years: 15.00 Smoking status: Current some day smoker Tobacco type: cigarettes Alcohol intake: never Substance use: never Spiritual care concerns: No Exam Narrative: APPEARANCE: Well appearing, no pain, no distress, well-nourished. HEAD: normocephalic, atraumatic. EYES: PERRLA/EOMI, conjunctivae clear. NOSE: Normal no drainage EARS:TMS clear with good light reflex. THROAT: Pharynx clear, no exudate. NECK: Supple. No adenopathy, no masses. RESPIRATORY: Airway patent, respirations nonlabored. Clear to auscultation bilaterally, no rales, rhonchi, wheezing. CARDIOVASCULAR: Regular rate and rhythm without murmurs rubs or gallops. No reproducible chest wall tenderness to palpation. Patient does have reproducible chest wall pain with movement ABDOMINAL: Soft, nontender, nondistended, normal bowel sounds MUSCULOSKELETAL: Moves all extremities. Strength/ROM intact, No edema, No calf tenderness. NEURO: Alert. Cranial nerves II through XII i
[2022-01-02 19:34] LABS: Alanine Aminotransferase 15 U/L (4-50); Albumin Level 4.2 g/dL (3.5-5.1); Alkaline Phosphatase 106 U/L (38-126); Anion Gap 11 mmol/L (8-16); Aspartate Amino Transferase 24 U/L (17-59); Bilirubin,Total 0.4 mg/dL (0.2-1.3); Blood Urea Nitrogen 22 mg/dL (9-20); Calcium 8.9 mg/dL (8.4-10.2); Carbon Dioxide 19 mmol/L (22-30); Chloride 108 mmol/L (98-107); Estimated CRCL calculation 35 ml/min; Estimated Glomerular Filt Rate > 60; Glucose 135 mg/dL (65-110); Lipase 30 U/L (23-300); Potassium 3.3 mmol/L (3.4-5.0); Sodium 138 mmol/L (137-145)
[2022-01-02 19:37] LABS: INR 1.1; Prothrombin Time 14.1 Seconds (11.1-14.7)
[2022-01-02 19:38] LABS: Partial Thromboplastin Time 39.7 SECONDS (22.3-36.8)
[2022-01-02] MEDS: ALBUTEROL SULFATE NEB 2.5 MG/0.5 ML INH 5 MG INHALATION (19:43)
[2022-01-02 22:35] LABS: Troponin I 0.015 ng/mL (0.000-0.034)
[2022-01-03] VITALS: BP 133/79; PULSE 67; RESP 22
[2022-01-03 00:01] VITALS: PULSE 70; RESP 24
== END 2022-01-03 00:24 | disposition home or self-care (01) ==
PROVIDERS: Emergency Medicine; Emergency Provider Emergency Medicine; PCP Physician Assistant
DX: R07.89 Other chest pain (principal); I10 Essential (primary) hypertension; Z86.16 Personal history of COVID-19; F17.210 Nicotine dependence, cigarettes, uncomplicated; Z86.73 Personal history of transient ischemic attack (TIA), and cerebral infarction without residual deficits; R94.31 Abnormal electrocardiogram [ECG] [EKG]
CPT/HCPCS: 36415; 71046; 80053; 83690; 84484; 85025; 85610; 85730; 93005; 94640; 99284

== ENCOUNTER 2022-02-06 01:21 | Day surgery (SDC) | payer MEDICARE, MEDICAID, SELFPAY ==
[2022-01-23 16:05] VITALS: BMI 22.6
--- NOTE | 2022-02-06 07:35 | WPDANESEPPF ---
Anes - Initial Pre Proc Eval Procedure: Operation Date: 02/06/22 10:00 Proposed Procedures p Screening Colonoscopy - Billy Braun MD Date/Time: 02/06/22 07:35 Surgeon: Billy Braun MD Pre Op Diagnosis: neoplasm screening Patient Data Age: 81 Gender: M Height: 1.52 m Weight: 52.5 kg Allergies Allergy/AdvReac Type Severity Reaction Status Date / Time No Known Allergies Allergy Verified 02/06/22 08:52 Home Medications Medication Instructions Recorded Confirmed Type alprazolam 0.25 mg PO HS 08/07/20 01/23/22 History levothyroxine 50 mcg PO DAILY 08/07/20 01/23/22 History memantine 10 mg PO HS 08/07/20 01/23/22 History mirtazapine 30 mg PO HS 08/07/20 01/23/22 History pantoprazole 40 mg PO DAILY 08/07/20 01/23/22 History simvastatin 40 mg PO HS 08/07/20 01/23/22 History fluticasone propionate 1 spray INTRANASAL DAILY 10/27/21 01/23/22 History lisinopril 10 mg PO Q12H 10/27/21 10/27/21 History meclizine 12.5 mg PO Q12H 10/27/21 01/23/22 History psyllium husk [Daily Fiber] 0.4 g PO DAILY 10/27/21 01/23/22 History sodium bicarbonate 650 mg PO BID #30 tablet 10/31/21 Rx amlodipine 5 mg PO DAILY 01/23/22 01/23/22 History Patient hx anesthesia problems: none Family hx anesthesia problems: none Results Review: All pre-operative results and documents have been reviewed as part of the pre-operative evaluation. [facility] Past Medical History Medical History (Updated 01/04/22 @ 00:00 by Background Terra) Colon cancer screening CVA (cerebral vascular accident) Dehydration Hypertension Family History Family History Mother Patient's mother is Father Patient's father is Social History Social History Smoking packs per day: 1 Smoking cigarettes per day: 20.0 Years smoked: 60 Smoking pack-years: 60.00 Smoking status: Former smoker Tobacco type: cigarettes Alcohol intake: never Substance use: never Substance use type: does not use Living arrangements: with family Spiritual care concerns: No Anes - Eval Final PreProcedure Day of Procedure 02/06/22 07:35 Patient weight: normal Heart: regular rate and rhythm Lungs: clear to auscultation and normal air movement Airway: Mallampati scale class II Neurological: alert and oriented Last oral intake: >/= 8 hours ASA classification: III Emergent: no Anesthetic plan: proceed Anesthesia type and monitoring: general GIVS and standard monitoring Results Review: All pre-operative results and documents have been reviewed as part of the pre-operative evaluation. Informed Consent: The patient's anesthetic plan and its attendant risks and benefits were discussed with the patient/family/POA. Questions were solicited and answers provided to the satisfaction of the patient/family/POA.
[2022-02-06 08:53] VITALS: BP 156/64; PULSE 68; RESP 18; TEMP 36.2; O2SAT 68; BMI 22.2
[2022-02-06] MEDS: LACTATED RINGERS 1,000 ML 150 ML IV CONT (09:01)
--- NOTE | 2022-02-06 09:32 | PM.HPGS ---
History of Present Illness History of Present Illness Consent: Risks, benefits, and alternatives have been discussed and questions answered. Patient agrees to proceed with procedure. Chief complaint: neoplasm screening Narrative: John An is a 81 year old male here for first screening colonoscopy Review of Systems Constitutional: Constitutional: Denies headache(s) and Denies weakness Eyes: Eyes: Denies blurry vision ENT: Reports Normal hearing present, Denies headache(s) and Denies neck pain Cardiovascular: Cardiovascular: Denies chest pain and Denies dyspnea Respiratory: Respiratory: Denies dyspnea Gastrointestinal: Gastrointestinal: Reports no additional gastrointestinal complaints Genitourinary: Genitourinary: Denies dysuria Musculoskeletal: Musculoskeletal: Denies neck pain Integumentary/Breasts: Skin/Breast: Denies dry skin Neurologic: Reports Normal hearing present, Denies headache(s) and Denies weakness Psychiatric: Psychiatric: Denies anxiety Endocrine: Endocrine: Denies change in body appearance Hematologic/Lymphatic: Hematologic/Lymphatic: Denies easy bleeding Allergic/Immunologic: Allergic/Immunologic: Denies urticaria PMFSH Past Medical History Medical History (Updated 01/04/22 @ 00:00 by Kermit Ellison) Colon cancer screening CVA (cerebral vascular accident) Dehydration Hypertension Family History Family History Mother Patient's mother is Father Patient's father is Social History Social History Smoking packs per day: 1 Smoking cigarettes per day: 20.0 Years smoked: 60 Smoking pack-years: 60.00 Smoking status: Former smoker Tobacco type: cigarettes Alcohol intake: never Substance use: never Substance use type: does not use Living arrangements: with family Spiritual care concerns: No Meds Home Medications and Allergies Home Medications Medication Instructions Recorded Confirmed Type alprazolam 0.25 mg PO HS 08/07/20 01/23/22 History levothyroxine 50 mcg PO DAILY 08/07/20 01/23/22 History memantine 10 mg PO HS 08/07/20 01/23/22 History mirtazapine 30 mg PO HS 08/07/20 01/23/22 History pantoprazole 40 mg PO DAILY 08/07/20 01/23/22 History simvastatin 40 mg PO HS 08/07/20 01/23/22 History fluticasone propionate 1 spray INTRANASAL DAILY 10/27/21 01/23/22 History lisinopril 10 mg PO Q12H 10/27/21 10/27/21 History meclizine 12.5 mg PO Q12H 10/27/21 01/23/22 History psyllium husk [Daily Fiber] 0.4 g PO DAILY 10/27/21 01/23/22 History sodium bicarbonate 650 mg PO BID #30 tablet 10/31/21 Rx amlodipine 5 mg PO DAILY 01/23/22 01/23/22 History Allergies Allergy/AdvReac Type Severity Reaction Status Date / Time No Known Allergies Allergy Verified 02/06/22 08:52 Vital Signs Vital Signs - 24 hr 02/06/22 08:53 Temperature 97.2 F L Pulse Rate 68 Respiratory Rate 18 Blood Pressure 156/64 H Pulse Oximetry 68 L Exam Const: General: comfortable and no acute distress HENMT: General nose exam: Normal nares present Eyes: General: appearance normal, both eyes and all related structures Neck: Neck: no JVD Resp: Auscultation: clear to auscultation bilaterally Cardio: Rate: regular rate Rhythm: regular rhythm GI: Inspection: non-distended GI Palp: Yes Soft to palpation Skin: General skin exam: normal color Neuro: General: gait normal Speech: normal speech Extrem: General: normal to inspection Psych: Mental Status: mental status grossly normal Assessment and Plan Assessment and plan (1) Colon cancer screening: Code(s): Z12.11 - Encounter for screening for malignant neoplasm of colon Status: Acute Assessment and Plan: colonoscopy
[2022-02-06 09:49] VITALS: BP 106/56; PULSE 50; RESP 16; O2SAT 100
[2022-02-06 09:59] VITALS: BP 122/61; PULSE 50; RESP 14; O2SAT 100
[2022-02-06 10:09] VITALS: BP 145/67; PULSE 52; RESP 16; O2SAT 99
== END 2022-02-06 10:18 | disposition home or self-care (01) ==
PROVIDERS: PCP Physician Assistant; Visit Provider Internal Medicine Gastroenterology
PROC: 0DJD8ZZ Inspection of Lower Intestinal Tract, Via Natural or Artificial Opening Endoscopic (ICD-10-PCS; CPT 45378; principal; 2022-02-06 10:00)
DX: Z12.11 Encounter for screening for malignant neoplasm of colon (principal); K57.30 Diverticulosis of large intestine without perforation or abscess without bleeding; K64.8 Other hemorrhoids; I10 Essential (primary) hypertension; Z86.73 Personal history of transient ischemic attack (TIA), and cerebral infarction without residual deficits; Z87.891 Personal history of nicotine dependence
CPT/HCPCS: G0121; J2704; J7120

== ENCOUNTER 2022-04-19 12:49 | Emergency (ER) | payer MEDICARE, MEDICAID, SELFPAY ==
[2022-04-19] VITALS (7 sets, daily range): BP systolic 142–174; BP diastolic 53–94; PULSE 48–85; RESP 14–23; TEMP 36.4; O2SAT 98–100
--- NOTE | 2022-04-19 13:37 | ECG_ITS ---
Measurements Intervals [place] Rate: 46 P: 30 MT: 179 QRS: 30 QRSD: 132 T: 40 QT: 501 QTc: 440 Interpretive Statements SINUS BRADYCARDIA RIGHT BUNDLE BRANCH BLOCK NONSPECIFIC ST ABNORMALITY ABNORMAL ECG COMPARED TO ECG 01/02/2022 18:46:40 HEART RATE HAS DECREASED RIGHT BUNDLE-BRANCH BLOCK NOW PRESENT Electronically Signed On 04-19-2022 16:09:06 CDT by Roger Méndez M.D.
[2022-04-19 13:54] LABS: Basophils Absolute Auto 0.1 K/mm3 (0.0-0.1); Basophils Percent Auto 0.8 % (0.2-1.2); Eosinophils Absolute Auto 0.2 K/mm3 (0-0.3); Hematocrit 39.8 % (42.0-52.0); Hemoglobin 12.4 g/dL (14.0-18.0); Immature Granulocyte Absolute 0.02 K/mm3 (0.00-0.031); Immature Granulocyte Percent A 0.3 % (0-0.5); Lymphocytes Absolute Auto 1.28 K/mm3 (0.9-3.2); Lymphocytes Percent Auto 17.7 % (18.3-44.2); Mean Corpuscular HGB Conc 31.2 g/dl (32-36); Mean Corpuscular Hemoglobin 26.4 pg (26-34); Mean Corpuscular Volume 84.9 fl (80-100); Mean Platelet Volume 9.8 fl (7.4-10.4); Monocytes Absolute Auto 0.7 K/mm3 (0.1-0.6); Monocytes Percent Auto 9.4 % (2.6-8.5); Neutrophils Percent Auto 68.8 % (45.5-73.1); Platelet Count Result 170 k/mm3 (150-375); Red Blood Count 4.69 M/mm3 (4.6-6.20); Red Cell Distribution Width 16.3 % (11.5-14.5); White Blood Count 7.2 K/mm3 (4.5-10.0)
[2022-04-19 14:06] LABS: Alanine Aminotransferase 12 U/L (6-50); Albumin Level 4.4 g/dL (3.5-5.1); Alkaline Phosphatase 98 U/L (38-126); Anion Gap 11 mmol/L (8-16); Aspartate Amino Transferase 19 U/L (17-59); Bilirubin,Total 0.3 mg/dL (0.2-1.3); Blood Urea Nitrogen 21 mg/dL (9-20); Calcium 8.8 mg/dL (8.4-10.2); Carbon Dioxide 22 mmol/L (22-30); Chloride 107 mmol/L (98-107); Estimated CRCL calculation 37 ml/min; Estimated Glomerular Filt Rate > 60; Glucose 112 mg/dL (65-110); Potassium 4.2 mmol/L (3.4-5.0); Sodium 140 mmol/L (137-145)
[2022-04-19] MEDS: SODIUM CHLORIDE 0.9% IV 500 ML 999 ML IV CONT (18:50)
[2022-04-19] MEDS: ONDANSETRON INJ 4 MG/2 ML VIAL IV PUSH (18:50)
[2022-04-19] MEDS: MECLIZINE HCL 25 MG TABLET PO (19:05)
--- NOTE | 2022-04-19 19:37 | ED.GENADULT ---
HPI - General Adult General Chief complaint: Dizziness Stated complaint: dizziness and nausea x 3 days Time Seen by Provider: 04/19/22 17:59 History of Present Illness HPI narrative: This is an 82-year-old male with history of vertigo presenting to ED with dizziness. Patient says that his dizziness started when he got out of bed in the morning. It is episodic when he moves his head. He completely resolves in between different episodes. He denies diplopia, dysphagia, dysarthria, dystaxia. Patient takes 12.5 mg of meclizine b.i.d. as needed for vertigo. Patient denies any other complaints at this time. Related Data Home Medications Medication Instructions Recorded Confirmed alprazolam 0.25 mg tablet 0.25 mg PO HS 08/07/20 01/23/22 levothyroxine 50 mcg tablet 50 mcg PO DAILY 08/07/20 01/23/22 memantine 10 mg tablet 10 mg PO HS 08/07/20 01/23/22 mirtazapine 30 mg tablet 30 mg PO HS 08/07/20 01/23/22 pantoprazole 40 mg tablet,delayed 40 mg PO DAILY 08/07/20 01/23/22 release simvastatin 40 mg tablet 40 mg PO HS 08/07/20 01/23/22 fluticasone propionate 50 1 spray intranasal DAILY 10/27/21 01/23/22 mcg/actuation nasal spray,suspension lisinopril 10 mg tablet 10 mg PO Q12H 10/27/21 10/27/21 meclizine 12.5 mg tablet 12.5 mg PO Q12H 10/27/21 01/23/22 psyllium husk 0.4 gram capsule 0.4 g PO DAILY 10/27/21 01/23/22 (Daily Fiber) amlodipine 5 mg tablet 5 mg PO DAILY 01/23/22 01/23/22 Allergies Allergy/AdvReac Type Severity Reaction Status Date / Time No Known Allergies Allergy Verified 02/06/22 08:52 Review of Systems Review of Systems: CONSTITUTIONAL: Denies night sweats. EYES: No eye pain ENT: Denies rhinorrhea CARDIOVASCULAR: Denies palpitations RESPIRATORY: Denies hemoptysis GASTROINTESTINAL: Denies hematemesis GENITOURINARY: Denies hematuria. SKIN: Denies rash MUSCULOSKELETAL: Denies myalgia. NEUROLOGIC: Denies weakness. PSYCHIATRIC: Denies delusions [facility] Past Medical History Medical History (Updated 04/19/22 @ 19:42 by Travon Abernathy MD) Colon cancer screening CVA (cerebral vascular accident) Dehydration Hypertension Vertigo Family History Family History Mother Patient's mother is Father Patient's father is Social History Social History Smoking packs per day: 1 Smoking cigarettes per day: 20.0 Years smoked: 60 Smoking pack-years: 60.00 Smoking status: Former smoker Tobacco type: cigarettes Alcohol intake: never Substance use: never Substance use type: does not use Spiritual care concerns: No Exam Narrative: APPEARANCE: No apparent distress. Head atraumatic. EYES: PERRLA/EOMI, NOSE: Normal no drainage NECK: Supple, Trachea midline RESPIRATORY: CTAB, No increased work of breathing. CARDIOVASCULAR: S1S2 appreciated ABDOMINAL: Soft, nontender, nondistended, MUSCULOSKELETAl: No obvious deformities NEURO: Alert. cranial nerves 2-12 grossly intact, sensation light touch, motor function cerebellar function intact in for 4 extremities. Gait is normal. No nystagmus at rest. Negative test of skew. Head impulse was indeterminate. SKIN:: Warm, dry. Normal color PSYCHIATRIC: Normal affect Course Vital Signs Vital signs: Vital Signs Temperature 97.5 F L 04/19/22 13:31 Pulse Rate 50 L 04/19/22 13:31 Respiratory Rate 18 04/19/22 13:31 Blood Pressure 142/53 H 04/19/22 13:31 Pulse Oximetry 98 04/19/22 13:31 Oxygen Delivery Room Air 04/19/22 13:31 Temperature 97.5 F L 04/19/22 13:31 Pulse Rate 70 04/19/22 19:05 Respiratory Rate 23 H 04/19/22 19:05 Blood Pressure 166/94 H 04/19/22 19:05 Pulse Oximetry 98 04/19/22 19:05 Oxygen Delivery Room Air 04/19/22 13:31 Medical Decision Making [facility] Narrative Medical decision making narrative: This is an 81-year-old male pre
--- NOTE | 2022-04-19 19:50 | PC.NURSE ---
pt able to ambulate, reports no dizziness.
== END 2022-04-19 20:11 | disposition home or self-care (01) ==
PROVIDERS: Emergency Medicine; Emergency Provider Emergency Medicine; PCP Physician Assistant
DX: R42 Dizziness and giddiness (principal); I10 Essential (primary) hypertension; Z85.038 Personal history of other malignant neoplasm of large intestine; Z86.73 Personal history of transient ischemic attack (TIA), and cerebral infarction without residual deficits
CPT/HCPCS: 36415; 80053; 84443; 85025; 93005; 96361; 96374; 99284; A9270; J2405; J7040

== ENCOUNTER 2022-08-30 13:30 | Outpatient (RCR) | payer MEDICARE, MEDICAID, SELFPAY ==
--- NOTE | 2022-07-26 14:45 | PTOPEVAL1 ---
Assessment and note entered by Kandace Leiva, PT Evaluation Information Assessment Status Evaluation Diagnosis vertigo Onset March 2022 Subjective Information head feels funny- like in the clouds; happens off /on, not all time; cannot tell you when it happens; take the dizzy pills every day in morning and night--did take today; balance is off when walk, have not fallen, sometimes walk sideways; no problems with moving around in bed, reading or watching TV; no issues with vision; no allergies or sinus issues; had hearing test and it was OK; reports he has had some therapy recently, but could not tell me what he had it for, except some walking and machines, looking at things on wall; At end of session, stated that he had therapy about 1 month ago for balance and dizziness at another facility; Pt reports his daughter does his medicines; gave him written instructions for next session to NOT take his dizziness med and numbers for pt's HR during session, so she can monitor, due to them being low; and the number here to call if she has any questions. Reported Pain Level Pain Score 0: Self Report Assessment PT Clinical Summary John has the diagnosis of vertigo. He reports intermittent head feels funny , could not state when it occurs. He was cooperative and followed simple commands, but has a history of some dementia. Family did not attend PT eval with him. With the evaluation, he stated he is on multiple meds: for HTN, COPD, increased cholesterol, thyroid and dizziness med; he did take his dizziness med this AM; with vestibular testing, did not elicit any dizziness, but with walking and head motions, reported off balance. He has decreased Reza balance score of 47/56 and some weakness of LE's, R with less motor control than L Skilled PT services are indicated to further assess vestibular system without any dizziness med to supress his vestibular system; LE strengthening, dynamic balance activities to increase balance and mobility skills. Plan of Care Interventions Yanelis
--- NOTE | 2022-08-30 14:03 | PTOPDC ---
Assessment and note entered by Kandace Leiva, PT Evaluation Information Assessment Status Discharge Diagnosis vertigo Onset March 2022 Subjective Information John reports: no more dizziness, some unsteady but much better; doing exercises at home; no falls; can do everything at home, feel like done with therapy; Reported Pain Level Pain Score 0: Self Report Assessment PT Clinical Summary John has received 6 PT sessions. Compared to the initial evaluation, he has improved in all areas: LE strength, Reza balance score from 47 to 52/56; 2 minute walking test distance from 300' to 350'; no longer has any dizziness and able to perform walking with head motions--without loss of balance and no dizziness reported. He is independent with his HEP, for LE strengthening and balance. Goals were achieved. Discharge PT, and is to continue with his HEP. Plan of Care PT Services Indicated No
== END 2022-08-30 14:55 | disposition home or self-care (01) ==
LOC: ANHPT 13:30
PROVIDERS: PCP Physician Assistant
DX: R42 Dizziness and giddiness (principal)
CPT/HCPCS: 97110; 97112; 97162; 97530

== ENCOUNTER 2024-09-09 12:06 | Emergency (ER) | payer MEDICARE, MEDICAID, SELFPAY ==
--- NOTE | 2024-09-09 12:33 | ED_ITS ---
HPI - Male Genitourinary General Chief complaint: Urogenital-Male Stated complaint: UTI Time Seen by Provider: 09/09/24 12:33 Source: patient, RN notes reviewed and old records reviewed Mode of arrival: ambulatory Limitations: no limitations History of Present Illness HPI Narrative: Patient presents accompanied by his die trouble shooter. Reportedly, patient lost his balance and fell 3 days ago, he did hit his right eye. His daughter came over and Steri stripped a laceration back together, and now he has a black eye. He denies any loss of consciousness, he remembers the entire incident. He is here today because his daughter who was a nurse is concerned that fall was caused secondary to UTI. Patient denies any urinary frequency or burning. States that he feels ?fine?. Related Data Home Medications ?Medication ?Instructions ?Recorded ?Confirmed ?Last Taken ?Type alprazolam 0.25 mg tablet 0.25 mg PO HS 08/07/20 09/09/24 Unknown History levothyroxine 50 mcg tablet 50 mcg PO DAILY 08/07/20 09/09/24 Unknown History memantine 10 mg tablet 10 mg PO HS 08/07/20 09/09/24 Unknown History mirtazapine 30 mg tablet 30 mg PO HS 08/07/20 09/09/24 Unknown History pantoprazole 40 mg tablet,delayed 40 mg PO DAILY 08/07/20 09/09/24 Unknown History release simvastatin 40 mg tablet 40 mg PO HS 08/07/20 09/09/24 Unknown History fluticasone propionate 50 1 spray intranasal DAILY 10/27/21 09/09/24 Unknown History mcg/actuation nasal spray,suspension lisinopril 10 mg tablet 10 mg PO Q12H 10/27/21 09/09/24 Unknown History psyllium husk 0.4 gram capsule 0.4 g PO DAILY 10/27/21 09/09/24 Unknown History (Daily Fiber) amlodipine 5 mg tablet 5 mg PO DAILY 01/23/22 09/09/24 Unknown History Allergies Allergy/AdvReac Type Severity Reaction Status Date / Time No Known Allergies Allergy Verified 09/09/24 12:16 Review of Systems Review of Systems: All systems reviewed & are unremarkable except as noted in HPI and below Constitutional: Constitutional: Reports no additional constitutional complaints ENT: Reports system reviewed and no additional complaints, except as documented Cardiovascular: Cardiovascular: Reports no additional cardiovascular complaints Respiratory: Respiratory: Reports no additional respiratory complaints Gastrointestinal: Gastrointestinal: Reports no additional gastrointestinal complaints Genitourinary: Genitourinary: Reports as per HPI Integumentary/Breasts: Skin/Breast: Reports as per HPI and Reports wounds [facility] Past Medical History Medical History Vertigo Colon cancer screening Dehydration CVA (cerebral vascular accident) Hypertension Family History Family History Mother Patient's mother is Father Patient's father is Social History Social History Smoking packs per day: 1 Smoking cigarettes per day: 20.0 Years smoked: 60 Smoking pack-years: 60.00 Smoking status: Former smoker Tobacco type: cigarettes Alcohol intake: never Substance use: never Substance use type: does not use Lack of Transportation: No Lack of Food: Never True Current Housing: I Have Housing Concerned About Future Housing: No Difficulty Paying Gas/Electric Bills: No Difficulty Paying for Meds: No Currently Unemployed: No Education: High School Diploma/GED Difficulty w/ Childcare or Family Care: No Living arrangements: with family Spiritual care concerns: No Comments At the time of my signature, I reviewed and agree with the nursing past medical, surgical, social, and family history. There is no relevant family history pertinent to the patient complaint. Exam Const: General: cooperative, no acute distress, alert and awake Orientation/consciousness: oriented to person, oriented to place and oriented to time HENMT: Head: normal to inspection Eyes: Periorbital: periorbital findings abnormal (Black eye with healing laceration to left eye) Conjunctivae: conjunctivae normal Pupils: Equal, round and reactive pupils present Resp: Effort & Inspection: normal respiratory effort and able to speak in complete sentences Auscultation: clear to auscultation bilaterally, no crackles, no rales, no rhonchi and no wheezes Cardio: Palpation: normal PMI Rate: regular rate Rhythm: regular rhythm Heart sounds: S1 normal heart sound present and S2 normal heart sound present Neuro: General: oriented to person, oriented to place and oriented to time Cranial nerves: Yes CN's II-XII intact bilaterally Psych: Appearance: grossly normal Thought process: Normal thought process present Insight: Good insight present (Psych) Judgement: Good judgement present (Psych) Course Course Level of Care: Express Care Visit Vital Signs Vital signs: Reviewed MDM - Male Genitourinary MDM Narrative Medical decision making narrative: Patient on concerned about fall 3 days ago. Denies any loss of consciousness or further injury than what is already documented as far as the fall goes. He is positive for UTI today, is asymptomatic. He is advised to follow with primary care provider. Emergency department for new or worse symptoms. He is nontoxic appearing and stable for discharge home on p.o. antibiotic therapy. Discharge instructions reviewed with patient, as well as provided in writing per nursing staff. The instructions also include specific and strict return/GO TO THE ER as well as f/u information. All questions have been answered, and the patient deny any further questions with discharge and discharge plan. Some parts of this dictation were generated by voice recognition software and may contain typographical and/or grammatical inaccuracies. Differential Diagnosis Differential diagnosis: Likely urinary tract infection and other (Full, pyelo) Medical Records Attestation: I reviewed the patient's medical records. Lab Data Attestation: I reviewed the patient's lab results. Discharge Plan Discharge Clinical Impression: Acute UTI Patient Disposition: Home, Self-Care Condition: Stable Instructions: Antibiotic Form, Urinary Tract Infection in Men (ED) Additional Instructions: Take all medications as prescribed. Follow with primary care provider. Emergency department for any new or worse symptoms Patient Language: English Prescriptions: New cephalexin 500 mg capsule 500 mg PO QID Qty: 28 0RF No Action simvastatin 40 mg tablet 40 mg PO HS alprazolam 0.25 mg tablet 0.25 mg PO HS levothyroxine 50 mcg tablet 50 mcg PO DAILY pantoprazole 40 mg tablet,delayed release (DR/EC) 40 mg PO DAILY mirtazapine 30 mg tablet 30 mg PO HS memantine 10 mg tablet 10 mg PO HS lisinopril 10 mg Tablet 10 mg PO Q12H fluticasone propionate 50 mcg/actuation Lequire,Suspension 1 spray INTRANASAL DAILY psyllium husk [Daily Fiber] 0.4 gram Capsule 0.4 g PO DAILY sodium bicarbonate 650 mg Tablet 650 mg PO BID Qty: 30 0RF amlodipine 5 mg tablet 5 mg PO DAILY meclizine 25 mg tablet 25 mg PO TID PRN (Reason: dizziness) 14 Days Qty: 60 0RF betamethasone valerate 0.1 % cream 1 applic topical BID-TID MDD tid PRN (Reason: itching) Qty: 15 2RF Follow-up/Referrals: Franco,SKYLER Deluca [Primary Care Provider] - 1 Week Time of Disposition: 13:21
[2024-09-09 12:48] VITALS: BP 127/56; PULSE 59; RESP 18; TEMP 36.6; O2SAT 99
[2024-09-09 19:25] LABS: EDUAAPPEAR Cloudy; EDUABILI Negative (Negative); EDUABLOOD Negative (Negative); EDUACOLOR1 Yellow; EDUAGLUCOSE Negative (Negative); EDUAKETONE Negative (Negative); EDUALEUKO Negative (Negative); EDUANITRATE Positive (Negative); EDUAPROTEIN Negative (Negative); EDUAUROBILI 0.2
== END 2024-09-09 13:30 | disposition home or self-care (01) ==
PROVIDERS: Emergency Provider Nurse Practitioner Family; PCP Physician Assistant
DX: N39.0 Urinary tract infection, site not specified (principal); I10 Essential (primary) hypertension; Z87.891 Personal history of nicotine dependence
CPT/HCPCS: 81003; 87081; 99213; G0463

== ENCOUNTER 2024-11-09 20:19 | Emergency (ER) | payer MEDICARE, MEDICAID, SELFPAY ==
--- OUTSIDE RECORDS SUMMARY | 2024-11-09 20:21 | XMS_ITS | Encounter Summary ---
Author Organization [facility] Facility Care Team Providers Care Artist Representative Name Role Phone Sandrine Gamez Primary Care Provider [phone]- [phone] Encounter Details Date Type Department Care Team (Latest Contact Info) Description 11/21/2016 Orders Only [facility] CLINCONV Provider, MD Valery [address] [place] [address] Social History Tobacco Use Types Packs/Day Years Used Date Smoking Tobacco: Never Assessed Sex and Gender Information Value Date Recorded Sex Assigned at Not on file Legal Sex Male 11:18 AM CERTIFIED PROFESSIONAL CONTROLLER Gender Identity Not on file Sexual Orientation Not on file documented as of this encounter Plan of Treatment Not on file documented as of this encounter Procedures Procedure Name Priority Date/Time Associated Diagnosis Comments COLONOSCOPY - SCAN 11/21/2016 12 :00 AM CERTIFIED PROFESSIONAL CONTROLLER documented in this encounter Results * COLONOSCOPY - SCAN (11/21/2016 12:00 AM CERTIFIED PROFESSIONAL CONTROLLER) Narrative 11/21/2016 12:00 AM CERTIFIED PROFESSIONAL CONTROLLER Ordered by an unspecified provider. Historical Provider Final Res ult documented in this encounter Visit Diagnoses Not on filedocumented in this encounter Care Teams Artist Representative Relationship Specialty Start Date End Date Sandrine Gamez PA [address] [place], [place] [id number] PCP - General Internal Medicine 12/11/18 documented as of this encounter
--- OUTSIDE RECORDS SUMMARY | 2024-11-09 20:21 | XMS_ITS | Continuity of Care Document ---
Author Organization [facility] Address [address] [place] [address] Phone Care Team Providers Care Mat Machine Tender Name Role Phone Claudio Singh Unavailable Unavailable Procedures Procedure Date Post-op Follow-up Visit After Cataract Laser Surgery Post-op Follow-up Visit Post-op Follow-up Visit Post-op Follow-up Visit After Cataract Laser Surgery Eye Exam & Treatment Advance Directives Directive Yes / No Effective Date File Name No Information Encounters Encounter Description Practice Location Reason(s) For Visit Diagnoses Date Provider Providers Copied on Encounter [facility], [id number] [place] [address] [address], [place], [place], [id number], [place] tel:[phone] [facility] No Information 1-200 8 Krishnasamy Claudio. [address], [place], [address], [place]. tel:[phone] [facility], [address], [place], [place], [id number], [place] tel:[phone] [facility], [facility] No Information 5-200 8 Krishnasamy Claudio. [address], [place], [address], [place]. tel:[phone] [facility], [address], [place], [place], [id number], [place] tel:[phone] [facility] No Information 2- 8 Krishnasamy Claudio. [address], [place], [facility], [place]. tel:[phone] [facility], [address], [place], [place], [id number], tel:[phone] [facility] No Information 8 Krishnasamy Claudio. [address], [place], [facility], [place]. tel:[phone] [facility], [address] [place] [address] [address], [place], [place], [address], [place] tel:[phone] [facility] No Information 1 8 Krishnasamy Claudio. [address] [place] [address], [facility], [place]. tel:[phone] [facility], [address], [place], [place], [id number], [place] tel:[phone] [facility] No Information 8 Krishnasamy Claudio. [facility], [place], [facility], [place]. tel:[phone] [facility], [address] [place] [address] [address], [place], [place], [address], [place] tel:[phone] [facility] No Information 8 Krishnasamy Claudio. [facility] [address], [place], [facility], [place]. tel:[phone] Family History Family Member Type Diagnosis Age At Onset No Information Payers Payer name Insurance type Covered republican ID Authoriza tion(s) No Information Social History Type Description Quantity Date Captured Comments Sex Male Smoking Status No Information Chief Complaint And Reason For Visit No Information Reason For Referral Reason For Referral No Information History Of Present Illness Encounter Date Complaint History Of Prese nt Illness No Information Functional Status Date Functional Assessmen t No Information Instructions Date Instruction Additional Infor mation No Information Assessments Type Assessment Date No Information Patient Care Teams Name Effective Dates (start - stop) Status Members No Information
--- OUTSIDE RECORDS SUMMARY | 2024-11-09 20:21 | XMS_ITS | Encounter Summary ---
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 Historical Provider Final Res ult documented in this encounter Visit Diagnoses Not on filedocumented in this encounter Care Teams Finish Grinder Relationship Specialty Start Date End Date Sandrine Gamez PA [address] [place], [place] [phone] PCP - General Internal Medicine 12/11/18 documented as of this encounter
--- OUTSIDE RECORDS SUMMARY | 2024-11-09 20:21 | XMS_ITS | Encounter Summary ---
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 Historical Provider Final Res ult documented in this encounter Visit Diagnoses Not on filedocumented in this encounter Care Teams Oven Dauber Relationship Specialty Start Date End Date Sandrine Gamez PA [address] [place] [address] PCP - General Internal Medicine 12/11/18 documented as of this encounter
--- OUTSIDE RECORDS SUMMARY | 2024-11-09 20:21 | XMS_ITS | Encounter Summary ---
Author Organization [facility] Facility Care Team Providers Care Residential Program Worker Name Role Phone Sandrine Gamez Primary Care Provider +1- [phone] Encounter Details Date Type Department Care Team (Latest Contact Info) Description 11/06/2016 Orders Only [facility] CLINCONV ProviderValery MD [address] [place] [address] Social History Tobacco Use Types Packs/Day Years Used Date Smoking Tobacco: Never Assessed Sex and Gender Information Value Date Recorded Sex Assigned at Not on file Legal Sex Male 11:18 AM ADMINISTRATIVE ASSISTANT Gender Identity Not on file Sexual Orientation Not on file documented as of this encounter Plan of Treatment Not on file documented as of this encounter Procedures Procedure Name Priority Date/Time Associated Diagnosis Comments CARDIOLOGY REPORT 11/27/2016 12: 00 AM CDT SCAN - PATHOLOGY 11/21/2016 12:0 0 AM ADMINISTRATIVE ASSISTANT documented in this encounter Results * CARDIOLOGY REPORT (11/27/2016 12:00 AM CDT) Anatomical Region Laterality Modality Other Narrative 11/27/2016 12:00 AM CDT Ordered by an unspecified provider. Historical Provider [facility] JOE WILBURN Final Result * SCAN - PATHOLOGY (11/21/2016 12:00 AM ADMINISTRATIVE ASSISTANT) Narrative 11/21/2016 12:00 AM ADMINISTRATIVE ASSISTANT Ordered by an unspecified provider. Historical Provider Final Res ult documented in this encounter Visit Diagnoses Not on filedocumented in this encounter Care Teams Residential Program Worker Relationship Specialty Start Date End Date Sandrine Gamez PA [address] [place] [address] PCP - General Internal Medicine 12/11/18 documented as of this encounter
--- OUTSIDE RECORDS SUMMARY | 2024-11-09 20:21 | XMS_ITS | Encounter Summary ---
Author Organization [facility] Facility Care Team Providers Care Special Education Kindergarten Teacher Name Role Phone Sandrine Gamez Primary Care Provider +1- [phone] Encounter Details Date Type Department Care Team (Latest Contact Info) Description 11/27/2016 Orders Only [facility] CLINCONV ProviderValery MD [address] [place] [address] Social History Tobacco Use Types Packs/Day Years Used Date Smoking Tobacco: Never Assessed Sex and Gender Information Value Date Recorded Sex Assigned at Not on file Legal Sex Male 11:18 AM STORY EDITOR Gender Identity Not on file Sexual Orientation Not on file documented as of this encounter Plan of Treatment Not on file documented as of this encounter Procedures Procedure Name Priority Date/Time Associated Diagnosis Comments CARDIOLOGY REPORT 11/27/2016 12: 00 AM CDT CARDIOLOGY REPORT 11/27/2016 12: 00 AM CDT documented in this encounter Results * CARDIOLOGY REPORT (11/27/2016 12:00 AM CDT) Anatomical Region Laterality Modality Other Narrative 11/27/2016 12:00 AM CDT Ordered by an unspecified provider. Historical Provider [facility] PROCE DURES Final Result * CARDIOLOGY REPORT (11/27/2016 12:00 AM CDT) Anatomical Region Laterality Modality Other Narrative 11/27/2016 12:00 AM CDT Ordered by an unspecified provider. Historical Provider [facility] PROCE DURES Final Result documented in this encounter Visit Diagnoses Not on filedocumented in this encounter Care Teams Special Education Kindergarten Teacher Relationship Specialty Start Date End Date Sandrine Gamez PA [address] [address] PCP - General Internal Medicine 12/11/18 documented as of this encounter
--- OUTSIDE RECORDS SUMMARY | 2024-11-09 20:21 | XMS_ITS | Encounter Summary ---
Author Organization [facility] Facility Care Team Providers Care Lubricating Machine Tender Name Role Phone Sandrine Gamez Primary Care Provider +1- [phone] Encounter Details Date Type Department Care Team (Latest Contact Info) Description 11/17/2018 Orders Only [facility] CLINCONV Provider, MD Valery [address] [place] [address] Social History Tobacco Use Types Packs/Day Years Used Date Smoking Tobacco: Every Day Sex and Gender Information Value Date Recorded Sex Assigned at Not on file Legal Sex Male 11:18 AM SCORER SINGLE Gender Identity Not on file Sexual Orientation Not on file documented as of this encounter Plan of Treatment Not on file documented as of this encounter Procedures Procedure Name Priority Date/Time Associated Diagnosis Comments SCAN - LABS 11/18/2018 12:00 AM SCORER SINGLE documented in this encounter Results * SCAN - LABS (11/18/2018 12:00 AM SCORER SINGLE) Narrative 11/18/2018 12:00 AM SCORER SINGLE Ordered by an unspecified provider. Historical Provider Final Res ult documented in this encounter Visit Diagnoses Not on filedocumented in this encounter Care Teams Lubricating Machine Tender Relationship Specialty Start Date End Date Sandrine Gamez PA [address] [place], [place] [phone] PCP - General Internal Medicine 12/11/18 documented as of this encounter
--- OUTSIDE RECORDS SUMMARY | 2024-11-09 20:21 | XMS_ITS | Encounter Summary ---
Author Organization [facility] Facility Care Team Providers Care Honeycomb Decapper Name Role Phone Sandrine Gamez Primary Care Provider +1- [phone] Encounter Details Date Type Department Care Team (Latest Contact Info) Description 12/20/2016 Orders Only [facility] Provider, MD Valery [address] [place] [id number] Social History Tobacco Use Types Packs/Day Years Used Date Smoking Tobacco: Never Assessed Sex and Gender Information Value Date Recorded Sex Assigned at Not on file Legal Sex Male 11:18 AM CORNETIST Gender Identity Not on file Sexual Orientation Not on file documented as of this encounter Plan of Treatment Not on file documented as of this encounter Procedures Procedure Name Priority Date/Time Associated Diagnosis Comments PROCEDURE - RESULT 01/11/2017 12 :00 AM CDT documented in this encounter Results * PROCEDURE - RESULT (01/11/2017 12:00 AM CDT) Narrative 01/11/2017 12:00 AM CDT Ordered by an unspecified provider. Historical Provider Final Res ult documented in this encounter Visit Diagnoses Not on filedocumented in this encounter Care Teams Honeycomb Decapper Relationship Specialty Start Date End Date Sandrine Gamez PA [address] [place] [address] PCP - General Internal Medicine 12/11/18 documented as of this encounter
--- OUTSIDE RECORDS SUMMARY | 2024-11-09 20:21 | XMS_ITS | Encounter Summary ---
Author Organization 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
--- OUTSIDE RECORDS SUMMARY | 2024-11-09 20:21 | XMS_ITS | Encounter Summary ---
Author Organization 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 Historical Provider [facility] Final Result documented in this encounter Visit Diagnoses Not on filedocumented in this encounter Care Teams Power Brake Operator Relationship Specialty Start Date End Date Sandrine Gamez PA [address] [place], [place] [phone] PCP - General Internal Medicine 12/11/18 documented as of this encounter
--- OUTSIDE RECORDS SUMMARY | 2024-11-09 20:21 | XMS_ITS | Encounter Summary ---
Author Organization 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 Historical Provider [facility] Final Result documented in this encounter Visit Diagnoses Not on filedocumented in this encounter Care Teams Hat Renovator Relationship Specialty Start Date End Date Sandrine Gamez PA [address] [place], [place] [phone] PCP - General Internal Medicine 12/11/18 documented as of this encounter
--- OUTSIDE RECORDS SUMMARY | 2024-11-09 20:21 | XMS_ITS | Encounter Summary ---
Author Organization [facility] Healthcare Address [address] [place] [address] Care Team Providers Care Furniture Dipper Name Role Phone Sandrine Gamez Primary Care Provider +1- [phone] Encounter Details Date Type Department Care Team (Late st Contact Info) Description 09/09/2024 Orders Only [facility] Health Information Management [address] [place] [id number] Scanning, Provider Social History Tobacco Use Types Packs/Day Years Used Date Smoking Tobacco: Former Cigarettes 1 30 Smokeless Tobacco: Never Alcohol Use Standard Drinks/Week Comments Not Currently 0 (1 standard drink = 0.6 oz pur e alcohol) AUDIT-C Answer Date Recorded Q1: How often do you have a drink containing alcohol? Never 08/05/2024 Q2: How many drinks containi ng alcohol do you have on a typical day when you are drinking? Patient does not drink Q3: How often do you have si x or more drinks on one occasion? Never 08/05/2024 PHQ-2 Answer Date Recorded PHQ-2 Total Score (If total score is 3 or more points, staff should administer the PHQ-9) 0 03/19/2024 Hunger Vital Sign Answer Date Recorded Within the past 12 months, y ou worried that your food would run out before you got the money to buy more. Never true 08/05/20 24 Within the past 12 months, t he food you bought just didn't last and you didn't have money to get more. Never true 08/05/2024 Personal Safety Answer Date Recorded Have you ever been in or are you currently in a harmful physical or emotional relationship or is someone making you feel afraid or unsafe? 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 Not on file Not on file Not on file documented as of this encounter Plan of Treatment Not on file documented as of this encounter Procedures Procedure Name Priority Date/Time Associated Diagnosis Comments SCAN - LABS 09/09/2024 documented in this encounter Results * SCAN - LABS (09/09/2024) us Provider Scanning Final Result documented in this encounter Visit Diagnoses Not on filedocumented in this encounter Care Teams Furniture Dipper Relationship Specialty Start Date End Date Sandrine Gamez PA [address] [facility] [address] [place] [address] PCP - General Internal Medicine 12/11/18 documented as of this encounter
--- OUTSIDE RECORDS SUMMARY | 2024-11-09 20:22 | XMS_ITS | Referral Summary ---
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) (Primary Dx) 10/30/2024 2:50 PM ACTUARIAL ANALYST - 10/30/2024 11:59 PM ACTUARIAL ANALYST Hospital Encounter [facility] Radiation Oncology [address] [place] [address] Irina Christiansen MD Discharge Disposition: Discharge to home or self care 10/27/2024 Nurse Triage [facility] Family Medicine [address] [facility] [address] [place] [address] Sandrine Gamez PA 10/24/2024 11:30 PM ACTUARIAL ANALYST - 10/24/2024 11:59 PM ACTUARIAL ANALYST Hospital Encounter [facility] Radiation Oncology [address] [facility] [place] [address] Irina Christiansen MD Discharge Disposition: Discharge to home or self care 10/15/2024 2:00 PM ACTUARIAL ANALYST - 10/15/2024 11:59 PM ACTUARIAL ANALYST Hospital Encounter [facility] Radiation Oncology [address] [place] [address] Irina Christiansen MD Discharge Disposition: Discharge to home or self care 10/06/2024 1:30 PM ACTUARIAL ANALYST Office Visit [facility] [address] [facility] [address] [place] [address] Sandrine Gamez PA Dysuria (Primary Dx); Late onset Alzheimer's dementia without behavioral disturbance (HCC); BMI 22.0-22.9, adult 09/25/2024 Telephone [facility] Radiation Oncology [address] [place] [address] Deepti Mead RN 09/25/2024 1:00 PM ACTUARIAL ANALYST Consult [facility] Radiation Oncology [address] [place] [address] Irina Christiansen MD Lymphadenopathy, hilar 09/16/[address] [place] [address] Sandrine Gamez PA 09/09/2024 Orders Only [facility] Health Information Management [address] [place] [id number] Scanning, Provider 09/08/2024 Orders Only [facility] Pulmonary [facility] [address] [place] [address] [place] [address] Ryder Burnham, RMA Lymphadenopathy, hilar (Primary Dx) from Last 3 Months Allergies No known active allergies Medications fluticasone propionate (FLONASE) 50 mcg/actuation nasal spray Administer 2 sprays into each nostril daily 16 g 1 020 Active Additional Information Patient not taking.Reported on 09/25/2024 levothyroxine (SYNTHROID) 50 mcg tabletIndications :Acquired hypothyroidism Take 1 tablet by mouth once daily 90 tablet 3 08/19/2 024 Active rosuvastatin (CRESTOR) 10 mg tablet Take 1 tablet by mouth once daily 90 tablet 1 024 Active aspirin 81 mg enteric coated tablet Take 1 tablet (81 mg total) by mouth daily Active mirtazapine (REMERON) 45 mg tabletIndications :Anxiety Take 1 tablet (45 mg total) by mouth nightly 90 tablet 1 024 Active amLODIPine (NORVASC) 2.5 mg tablet Take 1 tablet (2.5 mg total) by mouth nightly 90 tablet [address] (PROTONIX) 40 mg EC tabletIndications :Dyspepsia Take 1 tablet by mouth once daily 90 tablet 024 Active irbesartan (AVAPRO) 300 mg tablet Take 1 tablet by mouth nightly 90 tablet 024 Active guaiFENesin ER (MUCINEX) 600 mg 12 hr tablet Take 2 tablets (1,200 mg total) by mouth 2 (two) times a day Active meclizine (ANTIVERT) 25 mg tabletIndications :Vertigo TAKE 1 TABLET BY MOUTH THREE TIMES DAILY NEEDED FOR DIZZINESS 90 tablet 025 Active memantine (NAMENDA) 10 mg tabletIndications :Alzheimer's disease, unspecified (CODE) ([facility]) Take 1 tablet by mouth once daily 90 tablet 025 Active ALPRAZolam (XANAX) 0.5 mg tabletIndications :Anxiety Take 1/2 (one-half) tablet by mouth once daily 45 tablet 025 Active ALPRAZolam (XANAX) 0.5 mg tabletIndications :Anxiety Take 0.5 tablets (0.25 mg total) by mouth daily 45 tablet 1 024 2024 Discontinued memantine (NAMENDA) 10 mg tabletIndications :Alzheimer's disease, unspecified (CODE) ([facility]) Take 1 tablet by mouth once daily 90 tablet 024 2024 Discontinued meclizine (ANTIVERT) 25 mg tabletIndications :Vertigo TAKE 1 TABLET BY MOUTH THREE TIMES DAILY NEEDED FOR DIZZINESS 90 tablet 024 2024 Discontinued nitrofurantoin monohydrate (MACROBID) 100 mg capsule Take 1 capsule (100 mg total) by mouth 2 (two) times a day for 5 days 10 capsule 025 2024 Active Problems Problem Noted Date Diagnosed Date NSCLC of right middle lobe 09/24/2024 Cancer Staging:Clinical:Stage IA2(cT1b, cN0(f), cM0) - Unsigned Lymphadenopathy, hilar 07/15/2024 Need for immunization against influenza 07/05/20 24 Assessment & Plan (07/05/2024 9:48 PM CDT): Flu vaccine updated in the office today Sinus bradycardia 10/05/2023 Assessment & Plan (11/14/2023 1:52 PM ACTUARIAL ANALYST): Managed by cardio Dr. Pang's office. On beta-harry at with good control blood pressure. Is sinus Ortiz but denies any dizziness or symptoms so per their note will continue with current regimen Stressed hydration. Encouraged 32 oz water x2 every day Assessment & Plan (10/05/2023 9:44 AM ACTUARIAL ANALYST): Hx of sinus bradycardia and PVCs. Per daughter this is longstanding. He remains asymptomatic with a good functional capacity. Continue close monitoring. Left ear pain 02/13/2023 Assessment & Plan (02/25/2023 7:31 PM CDT): Persistent ear symptoms that continue to come and go. Strongly stressed to does not use Q-tips or put anything in the ears. Will send ofloxacin drops. If this persists it will be time for him to see ENT. BMI 22.0-22.9, adult 01/22/2023 Assessment & Plan (10/06/2024 1:31 PM ACTUARIAL ANALYST): Weight/BMI is in healthy range. Continue healthy lifestyle to maintain. Assessment & Plan (07/05/2024 9:47 PM CDT): Weight/BMI is in healthy range. Continue healthy lifestyle to maintain. Assessment & Plan (03/30/2024 8:56 PM CDT): Weight/BMI is in healthy range. Continue healthy lifestyle to maintain. Assessment & Plan (11/14/2023 1:51 PM ACTUARIAL ANALYST): Weight/BMI is in healthy range. Continue healthy lifestyle to maintain. Assessment & Plan (01/22/2023 1:08 PM CDT): Weight/BMI is in healthy range. Continue healthy lifestyle to maintain. Late onset Alzheimer's demen tia without behavioral disturbance 01/08/2022 Assessment & Plan (10/19/2024 2:57 PM ACTUARIAL ANALYST): Symptoms are stable. His daughter is taking good care of him and he has constant assistance in the home. Continue Namenda 10 Remeron 45 and Xanax p.r.n.. Assessment & Plan (07/05/2024 9:47 PM CDT): Patient with known dementia. Continue with the Namenda 10 mg. Also start Rexulti to help with some agitation that is probably secondary to the dementia. Daughter keeps a very close eye on him from the aspect of safety and needs. Assessment & Plan (03/30/2024 8:56 PM CDT): Patient with significant dementia. He is very well taken care of by his family. His daughter is a nurse and helps with medications. She usually send an update but I did not get 1 today. Will continue the Namenda. Assessment & Plan (11/14/2023 1:51 PM ACTUARIAL ANALYST): Alzheimer's symptoms are stable. He has in a safe home. His daughter assists with his care. He has assistance at home for his daily needs. Continue Namenda Assessment & Plan (10/01/2022 9:53 AM ACTUARIAL ANALYST): Continue current regimen. Daughter continues to make sure he is safe. He lives with his and has a caregiver that provides care during the day Assessment & Plan (06/19/2022 3:24 PM CDT): Stable continue with Namenda and Aricept Assessment & Plan (05/22/2022 8:18 PM CDT): Continue with Namenda. Assessment & Plan (05/07/2022 1:59 AM CDT): Patient is happily demented. Continue with Namenda Assessment & Plan (03/23/2022 10:29 PM CDT): Stable continue Namenda Assessment & Plan (01/08/2022 11:58 PM CDT): Continue Namenda he is happily demented. He is safe as he lives with his and daughter checks on him regular. Fatigue 12/04/2021 Assessment & Plan (10/01/2022 9:53 AM ACTUARIAL ANALYST): Probably multifactorial. Check labs and followup to re-evaluate Assessment & Plan (03/23/2022 10:29 PM CDT): Probably multifactorial. Check labs and followup to re-evaluate Assessment & Plan (12/04/2021 3:33 PM CDT): Probably multifactorial. Check labs and followup to re-evaluate Dyspepsia 01/31/2021 Assessment & Plan (01/31/2021 3:20 PM CDT): Encourage patient to avoid foods that trigger this sense of dyspepsia and hence the decision for him to induce vomiting. It sounds like hot sauce and spicy foods may be 1 of those triggers. He is already on Protonix. Continue with this. If his symptoms continue and he is avoiding those foods that he may benefit from seen GI. Stressed the importance of avoiding self induced vomiting due to the acid affects on the esophagus as well as the teeth. Vertigo 09/14/2020 Assessment & Plan (07/05/2024 9:47 PM CDT): Vertigo. Probably secondary to history of stroke. Continue with statin aspirin and maintain good blood pressure control Assessment & Plan (06/19/2022 3:24 PM CDT): Persistent dizziness/vertigo. Following with ENT. Waiting for VNG testing results to develop plan. Will await recommendations. Assessment & Plan (01/31/2021 3:18 PM CDT): Continue with physical therapy as his symptoms seem to be improving by his recollection. Assessment & Plan (09/14/2020 12:48 AM ACTUARIAL ANALYST): Sxs are most c/w vertigo. Antivert prn Discussed PT. Family will consider. Call if increased sxs Monitor bp closely--- Lisinopril 10mg bid Impacted cerumen of left ear 03/24/2020 Assessment & Plan (04/20/2020 11:43 PM CDT): Softened and not as impacted. Appears to be clearing on own. Assessment & Plan (04/20/2020 11:34 PM CDT): Start OTC debrox to assist with washing at next visit. Dizziness 03/24/2020 Assessment & Plan (05/22/2022 8:15 PM CDT): Patient has had persistent dizziness. Has been treating it as vertigo. Has known aneurysm but daughter head decided to not monitor it for years. Today she has decided she would like to pursue an aneurysm/cardiac workup. Will go ahead and start with a CT of the chest. His blood pressure is not controlled with his current regimen so will start a beta-harry to decrease some of the pressure off of the known aneurysm. Will start with 50 mg of atenolol and titrate up as needed. Currently on losartan 25 daily. Had been on amlodipine but had nausea which now the daughter thinks may not be related to the amlodipine but may be related to eating hot peppers so may be able to revisit the amlodipine and time. Daughter is a nurse she is able to take blood pressure readings at home. Encouraged her to call in a week or 2 with readings so we can adjust his medication appropriately. Discussed referral to Cardiology. Daughter wants to look into options. Advised with his known aneurysm probably would be a good idea to see cardiothoracic surgeon. She thinks that she will want to have this done at [facility] so she is going to research 2 she would like him to be referred to both as CT surgeon and Cardiology. She will get back with us with those name so referral can be made. Last echo and carotids looked to be about 2014 however he does get a lot of workups done at [facility] which I do not have access to. Will get the CT and consider additional workup verses having the scuba instructor complete since he prefers to see provider at [facility]. Assessment & Plan (05/07/2022 1:54 AM CDT): Patient went to the hospital with persistent dizziness. This is been a chronic complaint for the last couple of years. He has been on meclizine 12.5 mg was encouraged to increase to 25. He states he feels fine today. Family is not here with him and with his Alzheimer's difficult to know and rely on any of his history. Assessment & Plan (12/04/2021 3:33 PM CDT): Persistent dizziness. Have worked up from the cardiac standpoint and appears to be stable. He responds promptly to the meclizine. Will go ahead and provide refills. Patient's family to contact if there is a change in his symptoms. Assessment & Plan (09/11/2021 9:16 PM ACTUARIAL ANALYST): Patient states he is not having any dizziness currently. Assessment & Plan (03/14/2021 3:11 PM CDT): Patients states he is not taking his medication in the AM as consistent as patient thinks and she thinks she can see a correlation between missed meds and increased sxs. Encouraged patient to allow family to help take his medication daily for the next 2 weeks to see how his sxs are. If persist, will consider referral to ENT. Assessment & Plan (04/20/2020 11:46 PM CDT): Await MRI brain results. Continue to monitor. contiue to push fluids/food. Assessment & Plan (04/20/2020 11:38 PM CDT): This is a significant, separately identifiable problem that was evaluated and managed on the same day as the wellness exam Unknown etiology Could be related to cerumen impaction---start debrox and recheck. Will get MRI head due to hx dementia and hasn't had imaging in past. Sounds less like cardiac cause but if has syncope, he is to go to the ER> Chronic midline thoracic back pain 07/15/2019 Overview (07/15/2019): Improving since the ER visit. Pt requests PT. Order provided Mid back pain 07/15/2019 Cigarette smoker 04/09/2019 Assessment & Plan (03/23/2022 10:20 PM CDT): Patient states quit a few months ago. -- poor historian so will check with family. Encourage continue cessation Assessment & Plan (01/08/2022 11:57 PM CDT): Encouraged smoking cessation. Discussed 3 minutes. Reviewed options for assistance with cessation. Reviewed shelter sequela associated with smoking. Pt declines assistance at this time but may contact the office at anytime for further help as they desire. Assessment & Plan (05/28/2021 10:09 PM CDT): Encouraged smoking cessation. Discussed 3 minutes. Reviewed options for assistance with cessation. Reviewed dedicated intermodal truck driver sequela associated with smoking. Pt declines assistance at this time but may contact the office at anytime for further help as they desire. Assessment & Plan (01/31/2021 3:24 PM CDT): Encouraged smoking cessation. Discussed 3 minutes. Reviewed options for assistance with cessation. Reviewed shelter sequela associated with smoking. Pt declines assistance at this time but may contact the office at anytime for further help as they desire. Assessment & Plan (10/25/2020 9:20 PM ACTUARIAL ANALYST): Encouraged smoking cessation. Discussed 3 minutes. Reviewed options for assistance with cessation. Reviewed shelter sequela associated with smoking. Pt declines assistance at this time but may contact the office at anytime for further help as they desire. Assessment & Plan (04/20/2020 11:46 PM CDT): Encouraged smoking cessation. Discussed 3 minutes. Reviewed options for assistance with cessation. Reviewed shelter sequela associated with smoking. Pt declines assistance at this time but may contact the office at anytime for further help as they desire. Assessment & Plan (04/20/2020 11:36 PM CDT): Encouraged smoking cessation. Discussed 3 minutes. Reviewed options for assistance with cessation. Reviewed dedicated intermodal truck driver sequela associated with smoking. Pt declines assistance at this time but may contact the office at anytime for further help as they desire. Assessment & Plan (07/15/2019 9:39 PM CDT): Encouraged smoking cessation. Discussed 3 minutes. Reviewed options for assistance with cessation. Reviewed shelter sequela associated with smoking. Pt declines assistance at this time but may contact the office at anytime for further help as they desire. Assessment & Plan (04/09/2019 9:00 PM CDT): Encouraged smoking cessation. Discussed approx 3 minutes. Pt has no desire to stop smoking. Dysuria 04/09/2019 Assessment & Plan (10/19/2024 2:57 PM ACTUARIAL ANALYST): Patient with dysuria. Urine dip is suspicious for UTI so will send out Macrobid 100 mg b.i.d. x5 days. Await culture to confirm sensitivity Assessment & Plan (04/09/2019 9:05 PM CDT): Urine dip was not definitive so will send urine culture to determine if treatment is needed. Decreased hearing of both ears 12/11/2018 Assessment & Plan (07/15/2019 9:37 PM CDT): No change Assessment & Plan (04/09/2019 8:59 PM CDT): Pt states his ears were recently cleaned. Still has difficulty hearing but the canals are clear Chronic obstructive pulmonary disease 2018 Assessment & Plan (11/14/2023 1:50 PM ACTUARIAL ANALYST): Patient requests a refill of albuterol. Will send to pharmacy states he will occasionally get a little shortness of breath especially with seasonal change Assessment & Plan (01/08/2022 11:54 PM CDT): Encourage smoking cessation. Breathing without difficulty. He does not want any medication. Assessment & Plan (05/28/2021 10:09 PM CDT): Encouraged smoking cessation. He states he is breathing fine without medication/inhalers Assessment & Plan (10/25/2020 9:17 PM ACTUARIAL ANALYST): Breathing without difficulty. Declines using inhalers at this point Assessment & Plan (04/20/2020 11:45 PM CDT): Stop smoking. Breathing well Assessment & Plan (04/20/2020 11:35 PM CDT): STOP Smoking. Breathing without inhalers Assessment & Plan (07/15/2019 9:38 PM CDT): Continue Albuterol prn Assessment & Plan (04/09/2019 8:59 PM CDT): Pt denies difficulty breathing. He is not interested in an inhaler. Chronic fatigue 12/13/2017 Assessment & Plan (04/20/2020 11:46 PM CDT): Probably multifactorial. 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 No evidence of volume overload upon examination or heart failure symptoms. Continue routine monitoring. Thoracic aortic aneurysm without rupture (CMS/HC C) 11/13/2016 Overview (03/30/2024): 12/2015 CT abdomen 1. Ascending thoracic aortic aneurysm measuring up to 4.1 x 4.1 cm and descending thoracic aortic aneurysm measuring up to 4.2 x 4.1 cm. Monitor AAA--Mildly dilated thoracic aorta at 4.[address] on 05/18/22. Per Dr. Baker's last clinic note given his age, small degree of aortic dilation and stability since 2015 it is suspected that this will not pose an issue for him. Assessment & Plan (07/05/2024 9:46 PM CDT): Continue per Cardiology as they monitor his aneurysm with CTs. Assessment & Plan (03/30/2024 8:55 PM CDT): 12/2015 CT abdomen 1. Ascending thoracic aortic aneurysm measuring up to 4.1 x 4.1 cm and descending thoracic aortic aneurysm measuring up to 4.2 x 4.1 cm. Monitor AAA--Mildly dilated thoracic aorta at 4.[address] on 05/18/22. Per Dr. Baker's last clinic note given his age, small degree of aortic dilation and stability since 2015 it is suspected that this will not pose an issue for him. Assessment & Plan (11/14/2023 1:51 PM ACTUARIAL ANALYST): Monitor AAA--Mildly dilated thoracic aorta at 4.[address] on 05/18/22. [address]. Baker's last clinic note given his age, small degree of aortic dilation and stability since 2015 it is suspected that this will not pose an issue for him. Assessment & Plan (10/05/2023 9:48 AM ACTUARIAL ANALYST): Mildly dilated thoracic aorta at 4.[address] on 05/18/22. Per Dr. Baker's last clinic note given his age, small degree of aortic dilation and stability since 2015 it is suspected that this will not pose an issue for him. Will continue adequate blood pressure and risk factor control. Assessment & Plan (06/19/2022 3:24 PM CDT): Patient tolerating beta-harry well but he is bradycardic. Will reduce to 25 mg daily. I will my staff reach out to his daughter to try to coordinate care and establish with Cardiology as well as CT surgery based on the diagnosis. She wanted to be the 1 to pick out who he sees but still waiting to hear back from her. Assessment & Plan (05/22/2022 8:18 PM CDT): 12/2015 CT abdomen 1. Ascending thoracic aortic aneurysm measuring up to 4.1 x 4.1 cm and descending thoracic aortic aneurysm measuring up to 4.[address] chest ordered for further evaluation. Reviewed with the daughter the signs and symptoms of aneurysm rupture and the need for immediate evaluation as it can progressed very quickly to a extremely emergent situation. She voiced understanding. Assessment & Plan (05/07/2022 1:55 AM CDT): Patient has history of an aneurysm. Daughter has consistently said she is not interested in working it up further. Assessment & Plan (01/08/2022 11:58 PM CDT): Thoracic aneurysm is present. Have discussed multiple times with the daughter intervention. She does not desire intervention and understands that if not followed it could rupture which would lead to . Assessment & Plan (09/11/2021 9:30 PM ACTUARIAL ANALYST): Discussed this thoracic aneurysm with his daughter, over the phoneast visit. She is in favor of not following up with it via imaging. She just wants a natural course to take place. Advised this could be rupture which could lead to . She verbalizes understanding Assessment & Plan (05/28/2021 9:54 PM CDT): Will call and discuss this finding in a CT from 2015. I was not aware of this diagnosis. I don't have record that this has been re-imaged. He is a smoker Will call and speak with his daughter to determine if they would like to have additional imaging as he has dementia Dyspnea on exertion 06/26/2016 Acquired hypothyroidism 03/13/2016 Overview (08/09/2020): replaced Assessment & Plan (07/05/2024 9:45 PM CDT): Continue levothyroxine 50 mcg. Monitor labs. Assessment & Plan (03/30/2024 8:56 PM CDT): Continue levothyroxine. Monitor labs. Assessment & Plan (11/14/2023 1:50 PM ACTUARIAL ANALYST): Continue levothyroxine. Monitor labs. Assessment & Plan (10/01/2022 9:50 AM ACTUARIAL ANALYST): Continue levothyroxine. Monitor labs. Assessment & Plan (03/23/2022 10:19 PM CDT): Continue levothyroxine. Monitor labs. Assessment & Plan (01/08/2022 11:57 PM CDT): Continue levothyroxine. Monitor labs. Assessment & Plan (09/11/2021 9:16 PM ACTUARIAL ANALYST): Continue levothyroxine Assessment & Plan (05/28/2021 10:07 PM CDT): Continue levothyroxine. Monitor labs. Assessment & Plan (10/25/2020 9:18 PM ACTUARIAL ANALYST): Continue the levothyroxine Assessment & Plan (04/20/2020 11:45 PM CDT): Continue replacement Assessment & Plan (04/20/2020 11:35 PM CDT): Continue with levothyroxine Assessment & Plan (07/15/2019 9:38 PM CDT): Continue levothyroxine Assessment & Plan (04/09/2019 8:59 PM CDT): Continue levothyroxine. Check labs Anxiety 03/13/2016 Overview (08/09/2020): stable Essential hypertension 03/13/2016 Overview (08/09/2020): controlled Assessment & Plan (07/05/2024 9:45 PM CDT): Managed by cardiology. Currently on irbesartan 300 amlodipine 2.5. Today's reading looked good at 1:38 a.m. 76 but continue per Cardiology for any changes Encouraged to limit sodium intake and exercise for weight control. Assessment & Plan (03/30/2024 8:55 PM CDT): Insert hypertension. Continue per Dr. Pang. On irbesartan metoprolol Assessment & Plan (11/14/2023 1:50 PM ACTUARIAL ANALYST): Bp is stable/in acceptable range for any co-morbidities. Encouraged to limit sodium intake and exercise for weight control. Continue metoprolol XL 12.5 and irbesartan 300 Assessment & Plan (10/05/2023 9:50 AM ACTUARIAL ANALYST): Blood pressure elevated today. Per daughter stable at home with occasional drops when he doesn't drink enough water. Continue current regimen with irbesartan and metoprolol XL. Notify us if consistently running >140/>90 or having consistent drop in blood pressure. Labs today. Assessment & Plan (10/01/2022 9:52 AM ACTUARIAL ANALYST): Bp is stable/in acceptable range for any co-morbidities. Encouraged to limit sodium intake and exercise for weight control. Continue metoprolol irbesartan Assessment & Plan (06/19/2022 3:23 PM CDT): Blood pressure is well controlled but his pulse is down below 50 which is concerning. The atenolol was just added at 50 mg will pull back to 25 and see how he does. Patient's daughter is a nurse so will contact her so she can coordinate the medication changes patient does has Alzheimer's and is not reliable for history or his own care. Assessment & Plan (05/22/2022 8:15 PM CDT): See dizziness Assessment & Plan (05/07/2022 1:54 AM CDT): Encouraged to limit sodium intake and exercise for weight control. Blood pressure is a little bit high today. Patient states his family helps with his medicine any thinks he is taking it correctly. Assessment & Plan (03/23/2022 10:28 PM CDT): Bp is stable/in acceptable range for any co-morbidities. Encouraged to limit sodium intake and exercise for weight control. Patient stopped amlodipine in late January as family thought he was having increased nausea. He transition to losartan 25 mg. It appears as though his blood pressure is well controlled today. He is unable to reliably provide update on the nausea due to his dementia. Assessment & Plan (01/08/2022 11:57 PM CDT): Bp is stable/in acceptable range for any co-morbidities. Encouraged to limit sodium intake and exercise for weight control. Continue amlodipine Assessment & Plan (12/04/2021 3:33 PM CDT): Bp is stable/in acceptable range for any co-morbidities. Encouraged to limit sodium intake and exercise for weight control. Continue lisinopril Assessment & Plan (05/28/2021 9:51 PM CDT): Bp is stable/in acceptable range for any co-morbidities. Encouraged to limit sodium intake and exercise for weight control. Continue lisinopril 10mg bid Assessment & Plan (10/25/2020 9:17 PM ACTUARIAL ANALYST): Bp is stable/in acceptable range for any co-morbidities. Encouraged to limit sodium intake and exercise for weight control. Continue lisinopril History of CVA (cerebrovascu lar accident) without residual deficits 03/13/2016 Overview (08/21/2022): History stroke in approx 2005 Assessment & Plan (05/22/2022 8:15 PM CDT): Stressed importance of tight BP control. Neck nodule 03/13/2016 Overview (08/09/2020): historical negative work up per daughter Hyperlipidemia 12/26/2007 Overview (08/09/2020): controlled Assessment & Plan (07/05/2024 9:45 PM CDT): Encouraged patient to follow low fat/low chol diet like the Mediterranean diet. Increase good fats in the diet. Increase exercise. Monitor labs as needed. Continue Crestor 10 Assessment & Plan (11/14/2023 1:51 PM ACTUARIAL ANALYST): Encouraged patient to follow low fat/low chol diet like the Mediterranean diet. Increase good fats in the diet. Increase exercise. Monitor labs as needed. Continue Crestor Assessment & Plan (10/05/2023 9:49 AM ACTUARIAL ANALYST): Continue Crestor. FLP today. Assessment & Plan (10/01/2022 9:52 AM ACTUARIAL ANALYST): Encouraged patient to follow low fat/low chol diet like the Mediterranean diet. Increase good fats in the diet. Increase exercise. Monitor labs as needed. Assessment & Plan (03/23/2022 10:29 PM CDT): Encouraged patient to follow low fat/low chol diet like the Mediterranean diet. Increase good fats in the diet. Increase exercise. Monitor labs as needed. Patient had been on amlodipine with simvastatin so concerned about interaction of those 2 medications. I am going to go ahead and stop the simvastatin and transition to Crestor. He can finish out the simvastatin supply and start 10 mg of Crestor when this supply has been exhausted. Assessment & Plan (01/08/2022 11:57 PM CDT): Encouraged patient to follow low fat/low chol diet like the Mediterranean diet. Increase good fats in the diet. Increase exercise. Monitor labs as needed. Continue statin. If still doing well on amlodipine for blood pressure control will plan to switch the simvastatin to Crestor. Assessment & Plan (09/11/2021 9:17 PM ACTUARIAL ANALYST): Encouraged patient to follow fat/low chol diet like the Mediterranean diet. Increase good fats in the diet. Increase exercise. Monitor labs as needed. Continue statin Assessment & Plan (05/28/2021 9:51 PM CDT): Encouraged patient to follow fat/low chol diet like the Mediterranean diet. Increase good fats in the diet. Increase exercise. Monitor labs as needed. Continue simvastatin Assessment & Plan (10/25/2020 9:18 PM ACTUARIAL ANALYST): Encouraged patient to follow fat/low chol diet like the Mediterranean diet. Increase good fats in the diet. Increase exercise. Monitor labs as needed. Continue statin Current moderate episode of major depressive disorder without prior episode 12/26/2007 Assessment & Plan (07/05/2024 9:46 PM CDT): Patient with depression symptoms and little anxiety and dementia. Continue with Namenda 10 mg Remeron 45 Xanax as needed and will start Rexulti 0.5 mg HS to see if this helps with the agitation that is probably secondary to dementia Assessment & Plan (03/30/2024 8:56 PM CDT): Symptoms are stable with the Remeron. Assessment & Plan (11/14/2023 1:51 PM ACTUARIAL ANALYST): Continue mirtazapine and Xanax p.r.n. Assessment & Plan (01/08/2022 11:58 PM CDT): Continue Remeron Assessment & Plan (12/04/2021 3:36 PM CDT): Depression symptoms seem stable. He does have a decreased appetite so will go ahead and crit increase the Remeron to try to perk his appetite a little bit more. He this was written on his take-home she and highlighted to try to help make sure that his family adjust his medications at home. Assessment & Plan (05/28/2021 10:08 PM CDT): Stable with remeron Assessment & Plan (10/25/2020 9:20 PM ACTUARIAL ANALYST): Stable with Remeron Resolved Problems Problem Noted Date Diagnosed Date Resolved Date Chronic swimmer's ear of both sides 12/31/2022 11/14/2023 Assessment & Plan (12/31/2022 11:12 PM CDT): Improving. Complete the drops. If drainage persists, will encourage him to followup with ENT> Has seen [employer] with Jorge Mcmahon. BMI 22.0-22.9, adult 12/11/2022 023 Assessment & Plan (12/11/2022 1:32 PM CDT): Weight/BMI is in healthy range. Continue healthy lifestyle to maintain. BMI 21.0-21.9, adult 10/28/2022 023 Assessment & Plan (10/28/2022 9:56 PM ACTUARIAL ANALYST): Weight/BMI is in healthy range. Continue healthy lifestyle to maintain. Otitis of both ears 10/14/2022 11/14/19 24 Assessment & Plan (10/28/2022 9:57 PM ACTUARIAL ANALYST): TMs improve with the oral medication but canals are still little bit moist and irritated. Will send out ear drops. Will actually send eyedrops for the ears due to cost effectiveness. Will have him follow-up in the office in a couple of weeks to recheck and if symptoms persist will consult with ENT. Assessment & Plan (10/14/2022 8:49 PM ACTUARIAL ANALYST): Start antibiotic, antihistamine (Claritin OR Zyrtec), Mucinex 12hour and Steroid nasal spray (Flonase). Push fluids. Rest. Supportive care. If sxs worsen or don\'t improve, pt is to followup in the office. Medicare annual wellness visit, subsequent 10/01/2022 07/05/2024 Assessment & Plan (03/30/2024 9:02 PM CDT): Encouraged healthy lifestyle, good nutrition and exercise. Encouraged Calcium and Vitamin D and weight bearing exercise for bone health. Reviewed immunizations. Reviewed age appropirate screenings. Medicare Wellness Documentation is completed within the chart Assessment & Plan (11/14/2023 1:53 PM ACTUARIAL ANALYST): Encouraged healthy lifestyle, good nutrition and exercise. Encouraged Calcium and Vitamin D and weight bearing exercise for bone health. Reviewed immunizations. Reviewed age appropirate screenings. Medicare Wellness Documentation is completed within the chart Assessment & Plan (10/01/2022 9:54 AM ACTUARIAL ANALYST): Encouraged healthy lifestyle, good nutrition and exercise. Encouraged Calcium and Vitamin D and weight bearing exercise for bone health. Reviewed immunizations. Reviewed age appropirate screenings. Medicare Wellness Documentation is completed within the chart Need for immunization against influenza 06/19/2022 11/14/2023 Assessment & Plan (06/19/2022 3:25 PM CDT): Flu updated in the office today BMI 22.0-22.9, adult 04/25/2022 023 Assessment & Plan (10/01/2022 9:53 AM ACTUARIAL ANALYST): Weight/BMI is in healthy range. Continue healthy lifestyle to maintain. Assessment & Plan (06/19/2022 3:25 PM CDT): Weight/BMI is in healthy range. Continue healthy lifestyle to maintain. Assessment & Plan (04/25/2022 1:11 PM CDT): Weight/BMI is in healthy range. Continue healthy lifestyle to maintain. BMI 21.0-21.9, adult 12/20/2021 022 Assessment & Plan (12/20/2021 1:19 PM CDT): Weight/BMI is in healthy range. Continue healthy lifestyle to maintain. Pneumonia due to COVID-19 virus 12/04/2021 03/23/2022 Assessment & Plan (12/04/2021 3:33 PM CDT): Status post COVID pneumonia. Will go ahead and check a chest x-ray to confirm clearance. Moderate episode of recurren t major depressive disorder 12/04/2021 12/04/2021 BMI 21.0-21.9, adult 11/16/2021 022 Assessment & Plan (11/16/2021 2:11 PM ACTUARIAL ANALYST): Weight/BMI is in healthy range. Continue healthy lifestyle to maintain. BMI 21.0-21.9, adult 08/18/2021 022 Assessment & Plan (08/18/2021 2:52 PM ACTUARIAL ANALYST): Weight/BMI is in healthy range. Continue healthy lifestyle to maintain. BMI 22.0-22.9, adult 05/18/2021 022 Assessment & Plan (03/23/2022 10:29 PM CDT): Weight/BMI is in healthy range. Continue healthy lifestyle to maintain. Assessment & Plan (05/18/2021 2:30 PM CDT): Weight/BMI is in healthy range. Continue healthy lifestyle to maintain. BMI 22.0-22.9, adult 03/14/2021 021 Assessment & Plan (03/14/2021 2:33 PM CDT): Weight/BMI is in healthy range. Continue healthy lifestyle to maintain. BMI 22.0-22.9, adult 10/25/2020 021 Assessment & Plan (01/31/2021 3:21 PM CDT): Weight/BMI is in healthy range. Continue healthy lifestyle to maintain. Assessment & Plan (10/25/2020 4:03 PM ACTUARIAL ANALYST): Weight/BMI is in healthy range. Continue healthy lifestyle to maintain. Medicare annual wellness visit, subsequent 10/22/2020 09/11/2021 Assessment & Plan (05/28/2021 10:09 PM CDT): Encouraged healthy lifestyle, good nutrition and exercise. Encouraged Calcium and Vitamin D and weight bearing exercise for bone health. Reviewed immunizations. Reviewed age appropirate screenings. Medicare Wellness Documentation is completed within the chart BMI 22.0-22.9, adult 08/18/2020 021 Assessment & Plan (08/18/2020 1:12 PM ACTUARIAL ANALYST): Continue healthy lifestyle to continue healthy weight Elevated BP without diagnosis of hypertension 08/09/20 20 10/25/2020 Assessment & Plan (08/09/2020 2:51 PM ACTUARIAL ANALYST): Family will monitor bp over the coming week and notify us of results We will retrieve er notes from kelli for further review Dysfunction of both eustachian tubes 08/09/2020 01/08/2022 Assessment & Plan (08/09/2020 2:51 PM ACTUARIAL ANALYST): flonase daily x 7 days BMI 22.0-22.9, adult 04/20/2020 020 Assessment & Plan (04/20/2020 11:45 PM CDT): Continue to work on weight gain Assessment & Plan (04/20/2020 11:36 PM CDT): Weight/BMI is in a low range and dropping. Continue healthy lifestyle to increase weight. Medicare annual wellness visit, subsequent 04/20/2020 04/20/2020 Assessment & Plan (04/20/2020 11:38 PM CDT): Encouraged healthy lifestyle, good nutrition and exercise. Encouraged Calcium and Vitamin D and weight bearing exercise for bone health. Reviewed immunizations. Reviewed age appropirate screenings. Medicare Wellness Documentation is completed within the chart Need for 23-polyvalent pneum ococcal polysaccharide vaccine 04/20/2020 10/22/2020 Assessment & Plan (04/20/2020 11:46 PM CDT): Updated in office today BMI 21.0-21.9, adult 03/24/2020 020 Assessment & Plan (03/24/2020 2:42 PM CDT): BMI Follow-up includes: Discussed diet and exercising counseling. BMI 22.0-22.9, adult 04/09/2019 020 Assessment & Plan (07/15/2019 9:38 PM CDT): Weight/BMI is in healthy range. Continue healthy lifestyle to maintain. Assessment & Plan (04/09/2019 9:00 PM CDT): Weight/BMI is in healthy range. Continue healthy lifestyle to maintain. Protein-calorie malnutrition , moderate (CMS/HCC) 12/12/2016 05/28/2021 Assessment & Plan (03/14/2021 3:13 PM CDT): Encouraged to eat regular small meals. He will probably do better if at the table with family. Alzheimer's disease, unspecified (CODE) 03/13/2016 01/08/2022 Overview (08/09/2020): gradually worse Assessment & Plan (12/04/2021 3:32 PM CDT): Continued progression of symptoms. Difficult to fully assess as he is by himself today. He is on Namenda and tolerating well. His family is trying to observe safety precautions in the picture of a demented patient. Assessment & Plan (09/11/2021 9:16 PM ACTUARIAL ANALYST): Continue Namenda Patient would benefit from having family come with him to discuss his concerns. Assessment & Plan (05/28/2021 10:10 PM CDT): Continue namenda. Tolerating without problems. Assessment & Plan (10/25/2020 9:17 PM ACTUARIAL ANALYST): Tolerating the aricept and Namenda Assessment & Plan (04/20/2020 11:45 PM CDT): Continue Namenda. Responding well to Remeron--continue same dose. Daughter notes increased anxiety during the day--recommend using the xanax during the day and not as night as the remeron will help with sleep. Will try. Assessment & Plan (04/20/2020 11:38 PM CDT): This is a significant, separately identifiable problem that was evaluated and managed on the same day as the wellness exam Continue the Namenda. Stressed must monitor intake of fluids and food as he may not remember to eat. Weight loss----Stop the Celexa and start Remeron 30mg. Will see if helps with mood and appetite and sleep. Assessment & Plan (07/15/2019 9:37 PM CDT): Continue Namenda Assessment & Plan (04/09/2019 8:59 PM CDT): Continue the Namenda Cerebral infarction 11/16/2014 05/28/20 21 Tobacco use 08/26/2008 05/28/2021 Overview (08/09/2020): ongoing Assessment & Plan (10/25/2020 9:19 PM ACTUARIAL ANALYST): Encouraged smoking cessation. Discussed 3 minutes. Reviewed options for assistance with cessation. Reviewed shelter sequela associated with smoking. Pt declines assistance at this time but may contact the office at anytime for further help as they desire. Chronic sinusitis 08/26/2008 01/08/2022 Immunizations Immunization Administration Dates Next Due Influenza, Quadrivalent, Hig h Dose, Preservative Free, Intrr 06/19/2022,06/22/2021,05/28/2020 Influenza, Trivalent, Adjuva nted, Intramuscular 06/24/2018 Influenza, Trivalent, High D ose, Split, Preservative Free, Intramuscular 06/25/2024,06/04/2019 Influenza, Trivalent, IM (MDV) 08/26/2008 Influenza, Unspecified 09/17/2023(Deferr ed: Patient Refused),09/17/2023(Deferred: Patient Refused),10/18/2022(Deferred: Patient Refused),08/28/2007 Pneumococcal Conjugate 7-Valent 08/28/2007 Pneumococcal Conjugate PCV 13 04/09/2019 Pneumococcal Polysaccharide PPV23 04/20/2020 Tdap 02/24/2009 Social History Tobacco Use Types Packs/Day Years Used Date Smoking Tobacco: Former Cigarettes 1 30 Smokeless Tobacco: Never Alcohol Use Standard Drinks/Week Comments Not Currently 0 (1 standard drink = 0.6 oz pur e alcohol) AUDIT-C Answer Date Recorded Q1: How often do you have a drink containing alcohol? Never 10/06/2024 Q2: How many drinks containi ng alcohol do you have on a typical day when you are drinking? Patient does not drink Q3: How often do you have si x or more drinks on one occasion? Never 10/06/2024 PHQ-2 Answer Date Recorded PHQ-2 Total Score [...] on file Legal Sex Male 11:18 AM ACTUARIAL ANALYST Gender Identity Not on file Sexual Orientation Not on file Occupation Industry Job Start Date Job End Date Retired. Not on file Not on file Not on file Last Filed Vital Signs Vital Sign Reading Time Taken Comments Blood Pressure 122/64 10/06/2024 1:29 PM ACTUARIAL ANALYST Pulse 56 10/06/2024 1:29 PM ACTUARIAL ANALYST Temperature 36.4 C (97.5 F) 10/06/2024 1:29 PM ACTUARIAL ANALYST Respiratory Rate 18 09/25/2024 1:50 PM ACTUARIAL ANALYST Oxygen Saturation 99% 10/06/2024 1:29 PM ACTUARIAL ANALYST Inhaled Oxygen Concentration - - Weight 53 kg (116 lb 12.8 oz) 10/30/2024 3:48 PM ACTUARIAL ANALYST Height 152.4 cm (5') 10/06/2024 1:29 PM ACTUARIAL ANALYST Body Mass Index 22.81 10/06/2024 1:29 PM ACTUARIAL ANALYST Plan of Treatment Not on file Procedures Procedure Name Priority Date/Time Associated Diagnosis Comments RAD ONC ARIA SESSION SUMMARY 10/30/2024 3:32 PM ACTUARIAL ANALYST URINE CULTURE Routine 10/06/2024 1:46 PM ACTUARIAL ANALYST Dysuria POCT URINALYSIS DIPSTICK Routine 10/06/2024 1:30 PM ACTUARIAL ANALYST Dysuria SCAN - LABS 09/09/2024 from Last 3 Months Results * RAD ONC ARIA SESSION SUMMARY (10/30/2024 3:32 PM ACTUARIAL ANALYST) Course Name [id number] ARIA Course Plan Date 09/26/2024 10:20 AM ARIA Elapsed Days 0 ARIA Treatment Start Date 10/30/2024 ARIA Treatment Site RML LUNG ARIA Dose Given To Date (cGy) 3,400 ARIA Session Dosage Given (cGy) 3,400 ARIA Plan ID SBRT RML LUNG ARIA Fractions Treated 1 ARIA Prescribed Dose Per Fraction (cGy) 3,400 ARIA Prescribed Total Dose (cGy) 3,400 ARIA 10/30/2024 3:32 PM ACTUARIAL ANALYST us Not In File Miscellaneous RADIATION ONCOLOGY ORD ERABLES Final Result DAXA * (ABNORMAL) Urine culture Urine, clean voided (10/06/2024 1:46 PM ACTUARIAL ANALYST) Pathologist [facility] Urine culture (A) [employer] Comment: CULTURE, URINE, ROUTINE Micro Number: [id number] Test Status: Final Specimen Source: Urine, clean catch Specimen Quality: Adequate Result: Greater than 100,000 CFU/mL of Escherichia coli E.coli INT KWASI AMOX/CLAVULANATE R >=32 AMP/SULBACTAM R >=32 CEFAZOLIN R >=64 1 CEFEPIME S <=0.12 CEFTAZIDIME S <=1 CEFTRIAXONE R 16 CIPROFLOXACIN S <=0.06 GENTAMICIN S <=1 IMIPENEM S 0.5 LEVOFLOXACIN S <=0.12 MEROPENEM S <=0.25 NITROFURANTOIN S <=16 PIP/TAZOBACTAM R >=128 TRIMETHOPRIM/SULFA S <=20 S = Susceptible I = Intermediate R = Resistant NS = Not susceptible SDD = Susceptible Dose Dependent * = Not Tested NR = Not Reported NN = See Therapy Comments THERAPY COMMENTS Note 1: For uncomplicated UTI caused by E. coli, K. pneumoniae or P. mirabilis: Cefazolin is susceptible if KWASI <32 mcg/mL and predicts susceptible to the oral agents cefaclor, cefdinir, cefpodoxime, cefprozil, cefuroxime, cephalexin and loracarbef. Urine, clean voided 10/06/2024 1:46 PM ACTUARIAL ANALYST 10/07/2024 3:45 AM ACTUARIAL ANALYST Sandrine [facility] MICROBIOLOGY - GENERAL ORDERABLES Final Result Performing Organization Address [facility]/State/ZIP Co de Phone Number [facility] [facility] [address] [place] [address] * (ABNORMAL) POCT urinalysis dipstick (10/06/2024 1:30 PM ACTUARIAL ANALYST) Pathologist [facility] Glucose, ur, POC Negative Negative MG/DL Bilirubin, ur, POC Negative Negative, Small, Moderate, Large Ketones, ur, POC Negative Negative Specific [place], POC 1.025 1.003 - 1.030 Blood, ur, POC Trace(A) Negative pH, ur, POC 5.5 5.0 - 8.0 Protein, ur, POC 30.(A) Negative Urobilinogen, urine, POC 0.2 0.2 - 1.0 mg/dL Nitrite, ur, POC Positive(A) Negative Leukocytes, ur, POC Small(A) Negative Lot Number [id number] Urine 10/06/2024 1:30 PM ACTUARIAL ANALYST Sandrine [facility] POINT OF CARE TEST ORDERAB LES Final Result * SCAN - LABS (09/09/2024) Provider Scanning Final Result from Last 3 Months Insurance MEDICARE [facility] [place] MEDICARE [place] MEDICARE [place] Care Teams Expeller Operator Relationship Specialty Start Date End Date Sandrine Gamez PA [address] [place] [address] PCP - General Internal Medicine 12/11/18
--- OUTSIDE RECORDS SUMMARY | 2024-11-09 20:22 | XMS_ITS | Clinical Summary ---
Author Organization [facility] [address] [facility] Address [address] [place] [address] Care Team Providers Care Device Engineer Name Role Phone Sandrine Gamez Primary Care Provider [phone] Allergies No known active allergies Medications fluticasone propionate (FLONASE) 50 mcg/actuation nasal spray Administer 2 sprays into each nostril daily 16 g 1 Active Additional Information Patient not taking.Reported on 09/25/2024 levothyroxine (SYNTHROID) 50 mcg tabletIndications :Acquired hypothyroidism Take 1 tablet by mouth once daily 90 tablet 3 Active rosuvastatin (CRESTOR) 10 mg tablet Take 1 tablet by mouth once daily 90 tablet 1 Active aspirin 81 mg enteric coated tablet Take 1 tablet (81 mg total) by mouth daily Active mirtazapine (REMERON) 45 mg tabletIndications :Anxiety Take 1 tablet (45 mg total) by mouth nightly 90 tablet 1 Active amLODIPine (NORVASC) 2.5 mg tablet Take 1 tablet (2.5 mg total) by mouth nightly 90 tablet [address] (PROTONIX) 40 mg EC tabletIndications :Dyspepsia Take 1 tablet by mouth once daily 90 tablet Active irbesartan (AVAPRO) 300 mg tablet Take [...] 10 mg tabletIndications :Alzheimer's disease, unspecified (CODE) (HCC) Take 1 tablet by mouth once daily 90 tablet 025 Active ALPRAZolam (XANAX) 0.5 mg tabletIndications :Anxiety Take 1/2 (one-half) tablet by mouth once daily 45 tablet 025 Active ALPRAZolam (XANAX) 0.5 mg tabletIndications :Anxiety Take 0.5 tablets (0.25 mg total) by mouth daily 45 tablet 1 024 2024 Discontinued memantine (NAMENDA) 10 mg tabletIndications :Alzheimer's disease, unspecified (CODE) (HCC) Take 1 tablet by mouth once daily [...] 10/05/2023 Assessment & Plan (11/14/2023 1:52 PM UNIT ASSEMBLER): Managed by cardio Dr. Pang's office. On beta-harry at with good control blood pressure. Is sinus Ortiz but denies any dizziness or symptoms so per their note will continue with current regimen Stressed hydration. Encouraged 32 oz water x2 every day Assessment & Plan (10/05/2023 9:44 AM UNIT ASSEMBLER): Hx of sinus bradycardia and PVCs. Per [...] 01/22/2023 Assessment & Plan (10/06/2024 1:31 PM UNIT ASSEMBLER): Weight/BMI is in healthy range. Continue healthy lifestyle to maintain. Assessment & Plan (07/05/2024 9:47 PM CDT): Weight/BMI is in healthy range. Continue healthy lifestyle to maintain. Assessment & Plan (03/30/2024 8:56 PM CDT): Weight/BMI is in healthy range. Continue healthy lifestyle to maintain. Assessment & Plan (11/14/2023 1:51 PM UNIT ASSEMBLER): Weight/BMI is in healthy range. Continue healthy lifestyle to maintain. Assessment & Plan (01/22/2023 1:08 PM CDT): Weight/BMI is in healthy range. Continue healthy lifestyle to maintain. Late onset Alzheimer's demen tia without behavioral disturbance 01/08/2022 Assessment & Plan (10/19/2024 2:57 PM UNIT ASSEMBLER): Symptoms are stable. His daughter is taking [...] Namenda. Assessment & Plan (11/14/2023 1:51 PM UNIT ASSEMBLER): Alzheimer's symptoms are stable. He has in a safe home. His daughter assists with his care. He has assistance at home for his daily needs. Continue Namenda Assessment & Plan (10/01/2022 9:53 AM UNIT ASSEMBLER): Continue current regimen. Daughter continues to make [...] 12/04/2021 Assessment & Plan (10/01/2022 9:53 AM UNIT ASSEMBLER): Probably multifactorial. Check labs and followup to [...] recollection. Assessment & Plan (09/14/2020 12:48 AM UNIT ASSEMBLER): Sxs are most c/w vertigo. Antivert prn [...] will want to have this done at [facility] so she is going to research 2 she would like him to be referred to both as CT surgeon and Cardiology. She will get back with us with those name so referral can be made. Last echo and carotids looked to be about 2014 however he does get a lot of workups done at [facility] which I do not have access to. Will get the CT and consider additional workup verses having the space engineer complete since he prefers to see provider at [facility]. Assessment & Plan (05/07/2022 1:54 AM CDT): [...] symptoms. Assessment & Plan (09/11/2021 9:16 PM UNIT ASSEMBLER): Patient states he is not having any [...] Reviewed options for assistance with cessation. Reviewed payment specialist sequela associated with smoking. Pt declines assistance at this time but may contact the office at anytime for further help as they desire. Assessment & Plan (05/28/2021 10:09 PM CDT): Encouraged smoking cessation. Discussed 3 minutes. Reviewed options for assistance with cessation. Reviewed care home sequela associated with smoking. Pt declines assistance at this time but may contact the office at anytime for further help as they desire. Assessment & Plan (01/31/2021 3:24 PM CDT): Encouraged smoking cessation. Discussed 3 minutes. Reviewed options for assistance with cessation. Reviewed care home sequela associated with smoking. Pt declines assistance at this time but may contact the office at anytime for further help as they desire. Assessment & Plan (10/25/2020 9:20 PM UNIT ASSEMBLER): Encouraged smoking cessation. Discussed 3 minutes. Reviewed options for assistance with cessation. Reviewed care home sequela associated with smoking. Pt declines assistance at this time but may contact the office at anytime for further help as they desire. Assessment & Plan (04/20/2020 11:46 PM CDT): Encouraged smoking cessation. Discussed 3 minutes. Reviewed options for assistance with cessation. Reviewed care home sequela associated with smoking. Pt declines assistance at this time but may contact the office at anytime for further help as they desire. Assessment & Plan (04/20/2020 11:36 PM CDT): Encouraged smoking cessation. Discussed 3 minutes. Reviewed options for assistance with cessation. Reviewed care home sequela associated with smoking. Pt declines assistance at this time but may contact the office at anytime for further help as they desire. Assessment & Plan (07/15/2019 9:39 PM CDT): Encouraged smoking cessation. Discussed 3 minutes. Reviewed options for assistance with cessation. Reviewed payment specialist sequela associated with smoking. Pt declines assistance at this time but may contact the office at anytime for further help as they desire. Assessment & Plan (04/09/2019 9:00 PM CDT): Encouraged smoking cessation. Discussed approx 3 minutes. Pt has no desire to stop smoking. Dysuria 04/09/2019 Assessment & Plan (10/19/2024 2:57 PM UNIT ASSEMBLER): Patient with dysuria. Urine dip is suspicious [...] 2018 Assessment & Plan (11/14/2023 1:50 PM UNIT ASSEMBLER): Patient requests a refill of albuterol. Will [...] medication/inhalers Assessment & Plan (10/25/2020 9:17 PM UNIT ASSEMBLER): Breathing without difficulty. Declines using inhalers at [...] 11/14/2016 Assessment & Plan (10/25/2020 9:18 PM UNIT ASSEMBLER): On iron supplement. Recheck labs to see if stable and able to stop supplement Nonrheumatic aortic valve insufficiency 11/14/19 Assessment & Plan (10/05/2023 9:49 AM UNIT ASSEMBLER): Mild on TTE from 2014. No evidence [...] him. Assessment & Plan (11/14/2023 1:51 PM UNIT ASSEMBLER): Monitor AAA--Mildly dilated thoracic aorta at 4.[address] on 05/18/22. [address] Baker's last clinic note given his age, small degree of aortic dilation and stability since 2015 it is suspected that this will not pose an issue for him. 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 Assessment & Plan (09/11/2021 9:30 PM UNIT ASSEMBLER): Discussed this thoracic aneurysm with his daughter, [...] labs. Assessment & Plan (11/14/2023 1:50 PM UNIT ASSEMBLER): Continue levothyroxine. Monitor labs. Assessment & Plan (10/01/2022 9:50 AM UNIT ASSEMBLER): Continue levothyroxine. Monitor labs. Assessment & Plan (03/23/2022 10:19 PM CDT): Continue levothyroxine. Monitor labs. Assessment & Plan (01/08/2022 11:57 PM CDT): Continue levothyroxine. Monitor labs. Assessment & Plan (09/11/2021 9:16 PM UNIT ASSEMBLER): Continue levothyroxine Assessment & Plan (05/28/2021 10:07 PM CDT): Continue levothyroxine. Monitor labs. Assessment & Plan (10/25/2020 9:18 PM UNIT ASSEMBLER): Continue the levothyroxine Assessment & Plan (04/20/2020 [...] metoprolol Assessment & Plan (11/14/2023 1:50 PM UNIT ASSEMBLER): Bp is stable/in acceptable range for any co-morbidities. Encouraged to limit sodium intake and exercise for weight control. Continue metoprolol XL 12.5 and irbesartan 300 Assessment & Plan (10/05/2023 9:50 AM UNIT ASSEMBLER): Blood pressure elevated today. Per daughter stable at home with occasional drops when he doesn't drink enough water. Continue current regimen with irbesartan and metoprolol XL. Notify us if consistently running >140/>90 or having consistent drop in blood pressure. Labs today. Assessment & Plan (10/01/2022 9:52 AM UNIT ASSEMBLER): Bp is stable/in acceptable range for any [...] bid Assessment & Plan (10/25/2020 9:17 PM UNIT ASSEMBLER): Bp is stable/in acceptable range for any [...] 10 Assessment & Plan (11/14/2023 1:51 PM UNIT ASSEMBLER): Encouraged patient to follow low fat/low chol diet like the Mediterranean diet. Increase good fats in the diet. Increase exercise. Monitor labs as needed. Continue Crestor Assessment & Plan (10/05/2023 9:49 AM UNIT ASSEMBLER): Continue Crestor. FLP today. Assessment & Plan (10/01/2022 9:52 AM UNIT ASSEMBLER): Encouraged patient to follow low fat/low chol [...] Crestor. Assessment & Plan (09/11/2021 9:17 PM UNIT ASSEMBLER): Encouraged patient to follow fat/low chol diet like the Mediterranean diet. Increase good fats in the diet. Increase exercise. Monitor labs as needed. Continue statin Assessment & Plan (05/28/2021 9:51 PM CDT): Encouraged patient to follow fat/low chol diet like the Mediterranean diet. Increase good fats in the diet. Increase exercise. Monitor labs as needed. Continue simvastatin Assessment & Plan (10/25/2020 9:18 PM UNIT ASSEMBLER): Encouraged patient to follow fat/low chol diet [...] Remeron. Assessment & Plan (11/14/2023 1:51 PM UNIT ASSEMBLER): Continue mirtazapine and Xanax p.r.n. Assessment & [...] remeron Assessment & Plan (10/25/2020 9:20 PM UNIT ASSEMBLER): Stable with Remeron Resolved Problems Problem Noted Date Diagnosed Date Resolved Date Chronic swimmer's ear of both sides 12/31/2022 11/14/2023 Assessment & Plan (12/31/2022 11:12 PM CDT): Improving. Complete the drops. If drainage persists, will encourage him to followup with ENT> Has seen Aleida Rodriguez NP with [facility]. BMI 22.0-22.9, adult 12/11/2022 023 Assessment & Plan (12/11/2022 1:32 PM CDT): Weight/BMI is in healthy range. Continue healthy lifestyle to maintain. BMI 21.0-21.9, adult 10/28/2022 023 Assessment & Plan (10/28/2022 9:56 PM UNIT ASSEMBLER): Weight/BMI is in healthy range. Continue healthy lifestyle to maintain. Otitis of both ears 10/14/2022 11/14/19 24 Assessment & Plan (10/28/2022 9:57 PM UNIT ASSEMBLER): TMs improve with the oral medication but canals are still little bit moist and irritated. Will send out ear drops. Will actually send eyedrops for the ears due to cost effectiveness. Will have him follow-up in the office in a couple of weeks to recheck and if symptoms persist will consult with ENT. Assessment & Plan (10/14/2022 8:49 PM UNIT ASSEMBLER): Start antibiotic, antihistamine (Claritin OR Zyrtec), Mucinex [...] chart Assessment & Plan (11/14/2023 1:53 PM UNIT ASSEMBLER): Encouraged healthy lifestyle, good nutrition and exercise. Encouraged Calcium and Vitamin D and weight bearing exercise for bone health. Reviewed immunizations. Reviewed age appropirate screenings. Medicare Wellness Documentation is completed within the chart Assessment & Plan (10/01/2022 9:54 AM UNIT ASSEMBLER): Encouraged healthy lifestyle, good nutrition and exercise. [...] 023 Assessment & Plan (10/01/2022 9:53 AM UNIT ASSEMBLER): Weight/BMI is in healthy range. Continue healthy [...] 022 Assessment & Plan (11/16/2021 2:11 PM UNIT ASSEMBLER): Weight/BMI is in healthy range. Continue healthy lifestyle to maintain. BMI 21.0-21.9, adult 08/18/2021 022 Assessment & Plan (08/18/2021 2:52 PM UNIT ASSEMBLER): Weight/BMI is in healthy range. Continue healthy [...] maintain. Assessment & Plan (10/25/2020 4:03 PM UNIT ASSEMBLER): Weight/BMI is in healthy range. Continue healthy [...] 021 Assessment & Plan (08/18/2020 1:12 PM UNIT ASSEMBLER): Continue healthy lifestyle to continue healthy weight Elevated BP without diagnosis of hypertension 08/09/20 20 10/25/2020 Assessment & Plan (08/09/2020 2:51 PM UNIT ASSEMBLER): Family will monitor bp over the coming week and notify us of results We will retrieve er notes from kelli for further review Dysfunction of both eustachian tubes 08/09/2020 01/08/2022 Assessment & Plan (08/09/2020 2:51 PM UNIT ASSEMBLER): flonase daily x 7 days BMI 22.0-22.9, [...] patient. Assessment & Plan (09/11/2021 9:16 PM UNIT ASSEMBLER): Continue Namenda Patient would benefit from having family come with him to discuss his concerns. Assessment & Plan (05/28/2021 10:10 PM CDT): Continue namenda. Tolerating without problems. Assessment & Plan (10/25/2020 9:17 PM UNIT ASSEMBLER): Tolerating the aricept and Namenda Assessment & [...] ongoing Assessment & Plan (10/25/2020 9:19 PM UNIT ASSEMBLER): Encouraged smoking cessation. Discussed 3 minutes. Reviewed options for assistance with cessation. Reviewed payment specialist sequela associated with smoking. Pt declines assistance at this time but may contact the office at anytime for further help as they desire. Chronic sinusitis 08/26/2008 01/08/2022 Encounters Date Type Department Care Team Description 10/30/2024 2:50 PM UNIT ASSEMBLER - 10/30/2024 11:59 PM UNIT ASSEMBLER Hospital Encounter [facility] Advanced Medicine Radiation Oncology [address] [place] [phone] Irina Christiansen MD Discharge Disposition: Discharge to home or self care 10/30/2024 Orders Only RAD ONC TREATMENTS Miscellaneous, Not In File 10/30/2024 OTV [facility] Advanced Medicine Radiation Oncology [address] [place] [id number] Irina Christiansen MD Non-small cell cancer of right lung (HCC) (Primary Dx) 10/27/2024 Nurse Triage [facility] Family [facility] [address] [place] [address] Sandrine Gamez PA 10/24/2024 11:30 PM UNIT ASSEMBLER - 10/24/2024 11:59 PM UNIT ASSEMBLER Hospital Encounter [facility] Advanced Medicine Radiation Oncology [address] [place] [phone] Irina Christiansen MD Discharge Disposition: Discharge to home or self care 10/15/2024 2:00 PM UNIT ASSEMBLER - 10/15/2024 11:59 PM UNIT ASSEMBLER Hospital Encounter [facility] Radiation Oncology [address] [place] [address] Irina Christiansen MD Discharge Disposition: Discharge to home or self care 10/06/2024 1:30 PM UNIT ASSEMBLER Office Visit [facility] Family Medicine [address] [place] [address] Sandrine Gamez PA Dysuria (Primary Dx); Late onset Alzheimer's dementia without behavioral disturbance (HCC); BMI 22.0-22.9, adult 09/25/2024 1:00 PM UNIT ASSEMBLER Consult [facility] Radiation Oncology [facility] [place] [address] Irina Christiansen MD Lymphadenopathy, hilar 09/25/2024 Telephone [facility] Radiation Oncology [address] [place] [phone] Deepti Mead, RN 09/16/2024 Telephone [facility] [address] [place] [address] [address] [place] [address] Sandrine Gamez PA 09/09/2024 Orders Only [facility] Health Information Management [address] [place] [address] Scanning, Provider 09/08/2024 Orders Only [facility] Pulmonary [facility] 8[address] [place] [address] [place] [id number] Ryder Burnham, MORELIA Lymphadenopathy, hilar (Primary Dx) from Last 3 Months Immunizations Immunization Administration Dates Next Due Influenza, Quadrivalent, Hig h Dose, Preservative Free, Intrr 06/19/2022,06/22/2021,05/28/2020 Influenza, Trivalent, Adjuva nted, Intramuscular 06/24/2018 Influenza, Trivalent, High D ose, Split, Preservative Free, Intramuscular 06/25/2024,06/04/2019 Influenza, Trivalent, IM (MDV) 08/26/2008 Influenza, Unspecified 09/17/2023(Deferr ed: Patient Refused),09/17/2023(Deferred: Patient Refused),10/18/2022(Deferred: Patient Refused),08/28/2007 Pneumococcal Conjugate 7-Valent 08/28/2007 Pneumococcal Conjugate PCV 13 04/09/2019 Pneumococcal Polysaccharide PPV23 04/20/2020 Tdap 02/24/2009 Surgical History Surgery Date Site/Laterality Comments THYROID SURGERY LASIK 2019 Medical History Medical History Date Comments Stroke (HCC) COPD (chronic obstructive pulmonary disease) (HC C) Hypertension Dizziness Glaucoma Thyroid disease 2011 Family History Medical History Relation Name Comments Peripheral vascular disease Father Family history of peripheral vascular disease - (Added by TW Conv) No Known Problems Mother Relation Name Status Comments Father Mother Social History Tobacco Use Types Packs/Day Years [...] on file Legal Sex Male 11:18 AM UNIT ASSEMBLER Gender Identity Not on file Sexual Orientation Not on file Occupation Industry Job Start Date Job End Date Retired. Not on file Not on file Not on file Obstetrics History Last Filed Vital Signs Vital Sign Reading Time Taken Comments Blood Pressure 122/64 10/06/2024 1:29 PM UNIT ASSEMBLER Pulse 56 10/06/2024 1:29 PM UNIT ASSEMBLER Temperature 36.4 C (97.5 F) 10/06/2024 1:29 PM UNIT ASSEMBLER Respiratory Rate 18 09/25/2024 1:50 PM UNIT ASSEMBLER Oxygen Saturation 99% 10/06/2024 1:29 PM UNIT ASSEMBLER Inhaled Oxygen Concentration - - Weight 53 kg (116 lb 12.8 oz) 10/30/2024 3:48 PM UNIT ASSEMBLER Height 152.4 cm (5') 10/06/2024 1:29 PM UNIT ASSEMBLER Body Mass Index 22.81 10/06/2024 1:29 PM UNIT ASSEMBLER Plan of Treatment Health Maintenance Due Date Last Done Comments Hepatitis B Screening 1958 Zoster Vaccine (1 of 2) 1959 DTaP/Tdap/Td Vaccine (2 - Td or Tdap) 02/24/2019 02/24/2009 Covid-19 Vaccine (2023-2 5 season) 2024 09/14/2023, 08/31/2022, 05/15/2022, Additional history exists Depression Screening 03/19/2025 03/19/2024, 02/13/2023, 01/22/2023, Additional history exists Well Visit 65+ 03/19/2025 03/19/2024, 01/2023, 05/18/2021, Additional history exists Fall Risk Assessment 09/25/2025 09/25/2024, 08/05/2024, 03/19/2024, Additional history exists Pneumococcal vaccine 65+ Completed 020, 04/09/2019, 08/28/2007 Influenza Vaccine Completed 06/25/2024, , 06/22/2021, Additional history exists Procedures Procedure Name Priority Date/Time Associated Diagnosis Comments RAD ONC ARIA SESSION SUMMARY 10/30/2024 3:32 PM UNIT ASSEMBLER URINE CULTURE Routine 10/06/2024 1:46 PM UNIT ASSEMBLER Dysuria POCT URINALYSIS DIPSTICK Routine 10/06/2024 1:30 PM UNIT ASSEMBLER Dysuria SCAN - LABS 09/09/2024 from Last 3 Months Results * RAD ONC ARIA SESSION SUMMARY (10/30/2024 3:32 PM UNIT ASSEMBLER) Course Name [id number] _2024 ARIA Course Plan [...] Dose (cGy) 3,400 ARIA 10/30/2024 3:32 PM UNIT ASSEMBLER us Not In File Miscellaneous RADIATION ONCOLOGY ORD ERABLES Final Result ARIA * (ABNORMAL) Urine culture Urine, clean voided (10/06/2024 1:46 PM UNIT ASSEMBLER) Urine culture (A) [facility] Comment: CULTURE, URINE, ROUTINE Micro Number: [id number] Test Status: Final Specimen Source: Urine, clean [...] loracarbef. Urine, clean voided 10/06/2024 1:46 PM UNIT ASSEMBLER 10/07/2024 3:45 AM UNIT ASSEMBLER Result [facility] Sandrine [facility] LAB MICROBIOLOGY - GENERAL ORDERABLES Final Result [facility] [address] [place] [address] * (ABNORMAL) POCT urinalysis dipstick (10/06/2024 1:30 PM UNIT ASSEMBLER) Pathologist [facility] Glucose, ur, POC Negative Negative MG/DL Bilirubin, ur, POC Negative Negative, Small, Moderate, Large Ketones, ur, POC Negative Negative Specific [place], POC 1.025 1.003 - 1.030 Blood, ur, POC Trace(A) Negative pH, ur, POC 5.5 5.0 - 8.0 Protein, ur, POC 30.(A) Negative Urobilinogen, urine, POC 0.2 0.2 - 1.0 mg/dL Nitrite, ur, POC Positive(A) Negative Leukocytes, ur, POC Small(A) Negative Lot Number [id number] Urine 10/06/2024 1:30 PM UNIT ASSEMBLER Result [facility] Sandrine [facility] POINT OF CARE TEST ORDERAB LES Final Result * SCAN - LABS (09/09/2024) Provider Scanning Final Result from Last 3 Months Insurance MEDICARE [facility] OTHER Address: ATTN: CLAIMS DEPT [address] [place] [address] IDPA MEDICARE IDPA MEDICARE [employer] Care Teams Device Engineer Relationship Specialty Start Date End Date Sandrine Gamez PA [address] [place] [address] PCP - General Internal Medicine 12/11/18
--- OUTSIDE RECORDS SUMMARY | 2024-11-09 20:22 | XMS_ITS ---
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 Pang's office. On beta-harry at with good control blood pressure. Is sinus Ortiz but denies any dizziness or symptoms so per their note will continue with current regimen Stressed hydration. Encouraged 32 oz water x2 every day Assessment & Plan (10/05/2023 9:44 AM INTERNET MARKETING ANALYST): Hx of sinus bradycardia and PVCs. [...] 01/22/2023 Assessment & Plan (10/06/2024 1:31 PM INTERNET MARKETING ANALYST): Weight/BMI is in healthy range. Continue healthy lifestyle to maintain. Assessment & Plan (07/05/2024 9:47 PM CDT): Weight/BMI is in healthy range. Continue healthy lifestyle to maintain. Assessment & Plan (03/30/2024 8:56 PM CDT): Weight/BMI is in healthy range. Continue healthy lifestyle to maintain. Assessment & Plan (11/14/2023 1:51 PM INTERNET MARKETING ANALYST): Weight/BMI is in healthy range. Continue healthy lifestyle to maintain. Assessment & Plan (01/22/2023 1:08 PM CDT): Weight/BMI is in healthy range. Continue healthy lifestyle to maintain. Late onset Alzheimer's demen tia without behavioral disturbance 01/08/2022 Assessment & Plan (10/19/2024 2:57 PM INTERNET MARKETING ANALYST): Symptoms are stable. His daughter is [...] Namenda. Assessment & Plan (11/14/2023 1:51 PM INTERNET MARKETING ANALYST): Alzheimer's symptoms are stable. He has in a safe home. His daughter assists with his care. He has assistance at home for his daily needs. Continue Namenda Assessment & Plan (10/01/2022 9:53 AM INTERNET MARKETING ANALYST): Continue current regimen. Daughter continues to [...] 12/04/2021 Assessment & Plan (10/01/2022 9:53 AM INTERNET MARKETING ANALYST): Probably multifactorial. Check labs and followup [...] recollection. Assessment & Plan (09/14/2020 12:48 AM INTERNET MARKETING ANALYST): Sxs are most c/w vertigo. Antivert [...] will want to have this done at [facility] so she is going to research 2 she would like him to be referred to both as CT surgeon and Cardiology. She will get back with us with those name so referral can be made. Last echo and carotids looked to be about 2014 however he does get a lot of workups done at [facility] which I do not have access to. Will get the CT and consider additional workup verses having the tar pot man complete since he prefers to see provider at [facility]. Assessment & Plan (05/07/2022 1:54 AM CDT): [...] symptoms. Assessment & Plan (09/11/2021 9:16 PM INTERNET MARKETING ANALYST): Patient states he is not having [...] Reviewed options for assistance with cessation. Reviewed correction sequela associated with smoking. Pt declines assistance at this time but may contact the office at anytime for further help as they desire. Assessment & Plan (05/28/2021 10:09 PM CDT): Encouraged smoking cessation. Discussed 3 minutes. Reviewed options for assistance with cessation. Reviewed correction sequela associated with smoking. Pt declines assistance at this time but may contact the office at anytime for further help as they desire. Assessment & Plan (01/31/2021 3:24 PM CDT): Encouraged smoking cessation. Discussed 3 minutes. Reviewed options for assistance with cessation. Reviewed termite exterminator helper sequela associated with smoking. Pt declines assistance at this time but may contact the office at anytime for further help as they desire. Assessment & Plan (10/25/2020 9:20 PM INTERNET MARKETING ANALYST): Encouraged smoking cessation. Discussed 3 minutes. Reviewed options for assistance with cessation. Reviewed correction sequela associated with smoking. Pt declines assistance at this time but may contact the office at anytime for further help as they desire. Assessment & Plan (04/20/2020 11:46 PM CDT): Encouraged smoking cessation. Discussed 3 minutes. Reviewed options for assistance with cessation. Reviewed termite exterminator helper sequela associated with smoking. Pt declines assistance at this time but may contact the office at anytime for further help as they desire. Assessment & Plan (04/20/2020 11:36 PM CDT): Encouraged smoking cessation. Discussed 3 minutes. Reviewed options for assistance with cessation. Reviewed termite exterminator helper sequela associated with smoking. Pt declines assistance at this time but may contact the office at anytime for further help as they desire. Assessment & Plan (07/15/2019 9:39 PM CDT): Encouraged smoking cessation. Discussed 3 minutes. Reviewed options for assistance with cessation. Reviewed termite exterminator helper sequela associated with smoking. Pt declines assistance at this time but may contact the office at anytime for further help as they desire. Assessment & Plan (04/09/2019 9:00 PM CDT): Encouraged smoking cessation. Discussed approx 3 minutes. Pt has no desire to stop smoking. Dysuria 04/09/2019 Assessment & Plan (10/19/2024 2:57 PM INTERNET MARKETING ANALYST): Patient with dysuria. Urine dip is [...] 2018 Assessment & Plan (11/14/2023 1:50 PM INTERNET MARKETING ANALYST): Patient requests a refill of albuterol. [...] medication/inhalers Assessment & Plan (10/25/2020 9:17 PM INTERNET MARKETING ANALYST): Breathing without difficulty. Declines using inhalers [...] 11/14/2016 Assessment & Plan (10/25/2020 9:18 PM INTERNET MARKETING ANALYST): On iron supplement. 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 No [...] him. Assessment & Plan (11/14/2023 1:51 PM INTERNET MARKETING ANALYST): Monitor AAA--Mildly dilated thoracic aorta at 4.[address] on 05/18/22. Per [address] Baker's last clinic note given his age, small degree of aortic dilation and stability since 2015 it is suspected that this will not pose an issue for him. Assessment & Plan (10/05/2023 9:48 AM INTERNET MARKETING ANALYST): Mildly dilated thoracic aorta at 4.1 [...] . Assessment & Plan (09/11/2021 9:30 PM INTERNET MARKETING ANALYST): Discussed this thoracic aneurysm with his [...] labs. Assessment & Plan (11/14/2023 1:50 PM INTERNET MARKETING ANALYST): Continue levothyroxine. Monitor labs. Assessment & Plan (10/01/2022 9:50 AM INTERNET MARKETING ANALYST): Continue levothyroxine. Monitor labs. Assessment & Plan (03/23/2022 10:19 PM CDT): Continue levothyroxine. Monitor labs. Assessment & Plan (01/08/2022 11:57 PM CDT): Continue levothyroxine. Monitor labs. Assessment & Plan (09/11/2021 9:16 PM INTERNET MARKETING ANALYST): Continue levothyroxine Assessment & Plan (05/28/2021 10:07 PM CDT): Continue levothyroxine. Monitor labs. Assessment & Plan (10/25/2020 9:18 PM INTERNET MARKETING ANALYST): Continue the levothyroxine Assessment & Plan [...] metoprolol Assessment & Plan (11/14/2023 1:50 PM INTERNET MARKETING ANALYST): Bp is stable/in acceptable range for any co-morbidities. Encouraged to limit sodium intake and exercise for weight control. Continue metoprolol XL 12.5 and irbesartan 300 Assessment & Plan (10/05/2023 9:50 AM INTERNET MARKETING ANALYST): Blood pressure elevated today. Per daughter stable at home with occasional drops when he doesn't drink enough water. Continue current regimen with irbesartan and metoprolol XL. Notify us if consistently running >140/>90 or having consistent drop in blood pressure. Labs today. Assessment & Plan (10/01/2022 9:52 AM INTERNET MARKETING ANALYST): Bp is stable/in acceptable range for [...] bid Assessment & Plan (10/25/2020 9:17 PM INTERNET MARKETING ANALYST): Bp is stable/in acceptable range for [...] 10 Assessment & Plan (11/14/2023 1:51 PM INTERNET MARKETING ANALYST): Encouraged patient to follow low fat/low chol diet like the Mediterranean diet. Increase good fats in the diet. Increase exercise. Monitor labs as needed. Continue Crestor Assessment & Plan (10/05/2023 9:49 AM INTERNET MARKETING ANALYST): Continue Crestor. FLP today. Assessment & Plan (10/01/2022 9:52 AM INTERNET MARKETING ANALYST): Encouraged patient to follow low fat/low [...] Crestor. Assessment & Plan (09/11/2021 9:17 PM INTERNET MARKETING ANALYST): Encouraged patient to follow fat/low chol [...] simvastatin Assessment & Plan (10/25/2020 9:18 PM INTERNET MARKETING ANALYST): Encouraged patient to follow fat/low chol [...] Remeron. Assessment & Plan (11/14/2023 1:51 PM INTERNET MARKETING ANALYST): Continue mirtazapine and Xanax p.r.n. Assessment [...] remeron Assessment & Plan (10/25/2020 9:20 PM INTERNET MARKETING ANALYST): Stable with Remeron Current Treatment and Therapy Plans No current plan information found. Past Treatment and Therapy Plans No past plan information found. Radiation Treatments * Course [id number]/30/2024 - 10/30/2024 Treatment Period Energy Fraction Dose Fractions Total Dose Plans Planned SBRT RML LUNG 10/30/2024 - 10/30/2024 3,400 1 / 3,400 Reference Points Delivered RML LUNG 10/30/2024 - 10/30/2024 3,400 Resolved Problems Problem Noted Date Diagnosed Date [...] 023 Assessment & Plan (10/28/2022 9:56 PM INTERNET MARKETING ANALYST): Weight/BMI is in healthy range. Continue healthy lifestyle to maintain. Otitis of both ears 10/14/2022 11/14/19 24 Assessment & Plan (10/28/2022 9:57 PM INTERNET MARKETING ANALYST): TMs improve with the oral medication but canals are still little bit moist and irritated. Will send out ear drops. Will actually send eyedrops for the ears due to cost effectiveness. Will have him follow-up in the office in a couple of weeks to recheck and if symptoms persist will consult with ENT. Assessment & Plan (10/14/2022 8:49 PM INTERNET MARKETING ANALYST): Start antibiotic, antihistamine (Claritin OR Zyrtec), [...] chart Assessment & Plan (11/14/2023 1:53 PM INTERNET MARKETING ANALYST): Encouraged healthy lifestyle, good nutrition and exercise. Encouraged Calcium and Vitamin D and weight bearing exercise for bone health. Reviewed immunizations. Reviewed age appropirate screenings. Medicare Wellness Documentation is completed within the chart Assessment & Plan (10/01/2022 9:54 AM INTERNET MARKETING ANALYST): Encouraged healthy lifestyle, good nutrition and [...] 023 Assessment & Plan (10/01/2022 9:53 AM INTERNET MARKETING ANALYST): Weight/BMI is in healthy range. Continue [...] 022 Assessment & Plan (11/16/2021 2:11 PM INTERNET MARKETING ANALYST): Weight/BMI is in healthy range. Continue healthy lifestyle to maintain. BMI 21.0-21.9, adult 08/18/2021 022 Assessment & Plan (08/18/2021 2:52 PM INTERNET MARKETING ANALYST): Weight/BMI is in healthy range. Continue [...] maintain. Assessment & Plan (10/25/2020 4:03 PM INTERNET MARKETING ANALYST): Weight/BMI is in healthy range. Continue [...] 021 Assessment & Plan (08/18/2020 1:12 PM INTERNET MARKETING ANALYST): Continue healthy lifestyle to continue healthy weight Elevated BP without diagnosis of hypertension 08/09/20 20 10/25/2020 Assessment & Plan (08/09/2020 2:51 PM INTERNET MARKETING ANALYST): Family will monitor bp over the coming week and notify us of results We will retrieve er notes from kelli for further review Dysfunction of both eustachian tubes 08/09/2020 01/08/2022 Assessment & Plan (08/09/2020 2:51 PM INTERNET MARKETING ANALYST): flonase daily x 7 days BMI [...] patient. Assessment & Plan (09/11/2021 9:16 PM INTERNET MARKETING ANALYST): Continue Namenda Patient would benefit from having family come with him to discuss his concerns. Assessment & Plan (05/28/2021 10:10 PM CDT): Continue namenda. Tolerating without problems. Assessment & Plan (10/25/2020 9:17 PM INTERNET MARKETING ANALYST): Tolerating the aricept and Namenda Assessment [...] ongoing Assessment & Plan (10/25/2020 9:19 PM INTERNET MARKETING ANALYST): Encouraged smoking cessation. Discussed 3 minutes. Reviewed options for assistance with cessation. Reviewed termite exterminator helper sequela associated with smoking. Pt declines assistance at this time but may contact the office at anytime for further help as they desire. Chronic sinusitis 08/26/2008 01/08/2022
--- OUTSIDE RECORDS SUMMARY | 2024-11-09 20:22 | XMS_ITS | Encounter Summary ---
Author Organization [facility] Address [address] [place] [address] Phone Care Team Providers Care Retail Services Professional Name Role Phone Sandrine Gamez Primary Care Provider +1- [phone] Encounter Details Date Type Department Care Team (Latest Contact Info) Description 10/27/2021 Orders Only [facility] Scanning, Provider Social History Tobacco Use Types Packs/Day Years Used Date Smoking Tobacco: Every Day Cigarettes Smokeless Tobacco: Never Alcohol Use Standard Drinks/Week Comments Not Currently 0 (1 standard drink = 0.6 oz pur e alcohol) PHQ-2 Answer Date Recorded PHQ-2 Total Score (If total score is 3 or more points, staff should administer the PHQ-9) 0 05/18/2021 Sex and Gender Information Value Date Recorded Sex Assigned at Not on file Legal Sex Male 11:18 AM RESPIRATORY PHYSICIAN Gender Identity Not on file Sexual Orientation Not on file Occupation Industry Job Start Date Job End Date Retired. Not on file Not on file Not on file documented as of this encounter Plan of Treatment Not on file documented as of this encounter Procedures Procedure Name Priority Date/Time Associated Diagnosis Comments SCAN - RADIOLOGY/IMAGING 10/27/2021 documented in this encounter Results * SCAN - RADIOLOGY/IMAGING (10/27/2021) Anatomical Region Laterality Modality Other us Provider Scanning Final Result documented in this encounter Visit Diagnoses Not on filedocumented in this encounter Care Teams Retail Services Professional Relationship Specialty Start Date End Date Sandrine Gamez PA [address] [facility] [address] [place] [address] PCP - General Internal Medicine 12/11/18 documented as of this encounter
[2024-11-09 20:53] VITALS: BP 103/40; PULSE 64; RESP 20; TEMP 36.9; O2SAT 100
--- NOTE | 2024-11-09 22:12 | PC.NURSE ---
Pt's dgtr stating she is a nurse and would like to take him home and not have him exposed to flu in triage. Dgtr stated she feels pt is okay to go home. IV removed. Pt ambulatory to POV with dgtr.
--- OUTSIDE RECORDS SUMMARY | 2024-11-09 22:29 | XMS_ITS | Encounter Summary ---
Author Organization [facility] Facility Care Team Providers Care Sap Architect Name Role Phone Sandrine Gamez Primary Care Provider +1- [phone] Encounter Details Date Type Department Care Team (Latest Contact Info) Description 11/17/2018 Orders Only [facility] Provider, MD Valery [address] [place] [address] Social History Tobacco Use Types Packs/Day Years Used Date Smoking Tobacco: Every Day Sex and Gender Information Value Date Recorded Sex Assigned at Not on file Legal Sex Male 11:18 AM HIDE MILL WORKER Gender Identity Not on file Sexual Orientation Not on file documented as of this encounter Plan of Treatment Not on file documented as of this encounter Procedures Procedure Name Priority Date/Time Associated Diagnosis Comments SCAN - LABS 11/18/2018 12:00 AM HIDE MILL WORKER documented in this encounter Results * SCAN - LABS (11/18/2018 12:00 AM HIDE MILL WORKER) Narrative 11/18/2018 12:00 AM HIDE MILL WORKER Ordered by an unspecified provider. Historical Provider Final Res ult documented in this encounter Visit Diagnoses Not on filedocumented in this encounter Care Teams Sap Architect Relationship Specialty Start Date End Date Sandrine Gamez PA [address] [place], [place] [phone] PCP - General Internal Medicine 12/11/18 documented as of this encounter
--- OUTSIDE RECORDS SUMMARY | 2024-11-09 22:29 | XMS_ITS | Encounter Summary ---
Author Organization [facility] Facility Care Team Providers Care Business Office Director Name Role Phone Sandrine Gamez Primary Care Provider +1- [phone] Encounter Details Date Type Department Care Team (Latest Contact Info) Description 11/05/2016 Orders Only [facility] Provider, MD Valery [address] [place] [address] Social History Tobacco Use Types Packs/Day Years Used Date Smoking Tobacco: Never Assessed Sex and Gender Information Value Date Recorded Sex Assigned at Not on file Legal Sex Male 11:18 AM OPERATOR CAVITY PUMP Gender Identity Not on file Sexual Orientation [...] on filedocumented in this encounter Care Teams Business Office Director Relationship Specialty Start Date End Date Sandrine Gamez PA [address] [place], [place] [phone] PCP - General Internal Medicine 12/11/18 documented as of this encounter
--- OUTSIDE RECORDS SUMMARY | 2024-11-09 22:29 | XMS_ITS | Encounter Summary ---
Author Organization [facility] Facility Care Team Providers Care Corporate Account Executive Name Role Phone Sandrine Gamez Primary Care Provider +1- [phone] Encounter Details Date Type Department Care Team (Latest Contact Info) Description 11/21/2016 Orders Only [facility] Provider, MD Valery [address] [place] [address] Social History Tobacco Use Types Packs/Day Years Used Date Smoking Tobacco: Never Assessed Sex and Gender Information Value Date Recorded Sex Assigned at Not on file Legal Sex Male 11:18 AM QA TECH Gender Identity Not on file Sexual Orientation Not on file documented as of this encounter Plan of Treatment Not on file documented as of this encounter Procedures Procedure Name Priority Date/Time Associated Diagnosis Comments COLONOSCOPY - SCAN 11/21/2016 12 :00 AM QA TECH documented in this encounter Results * COLONOSCOPY - SCAN (11/21/2016 12:00 AM QA TECH) Narrative 11/21/2016 12:00 AM QA TECH Ordered by an unspecified provider. Historical Provider Final Res ult documented in this encounter Visit Diagnoses Not on filedocumented in this encounter Care Teams Corporate Account Executive Relationship Specialty Start Date End Date Sandrine Gamez PA [address] [place], [place] [phone] PCP - General Internal Medicine 12/11/18 documented as of this encounter
--- OUTSIDE RECORDS SUMMARY | 2024-11-09 22:29 | XMS_ITS | Encounter Summary ---
Author Organization [facility] Facility Care Team Providers Care Saddle Tree Stitcher Name Role Phone Sandrine Gamez Primary Care Provider +1- [phone] Encounter Details Date Type Department Care Team (Latest Contact Info) Description 11/06/2016 Orders Only [facility] ProviderValery MD [address] [place] [address] Social History Tobacco Use Types Packs/Day Years Used Date Smoking Tobacco: Never Assessed Sex and Gender Information Value Date Recorded Sex Assigned at Not on file Legal Sex Male 11:18 AM MUSIC CRITIC Gender Identity Not on file Sexual Orientation Not on file documented as of this encounter Plan of Treatment Not on file documented as of this encounter Procedures Procedure Name Priority Date/Time Associated Diagnosis Comments CARDIOLOGY REPORT 11/27/2016 12: 00 AM CDT SCAN - PATHOLOGY 11/21/2016 12:0 0 AM MUSIC CRITIC documented in this encounter Results * CARDIOLOGY REPORT (11/27/2016 12:00 AM CDT) Anatomical Region Laterality Modality Other Narrative 11/27/2016 12:00 AM CDT Ordered by an unspecified provider. Historical Provider [facility] JOE WILBURN Final Result * SCAN - PATHOLOGY (11/21/2016 12:00 AM MUSIC CRITIC) Narrative 11/21/2016 12:00 AM MUSIC CRITIC Ordered by an unspecified provider. Historical Provider Final Res ult documented in this encounter Visit Diagnoses Not on filedocumented in this encounter Care Teams Saddle Tree Stitcher Relationship Specialty Start Date End Date Sandrine Gamez PA [address] [place] [address] PCP - General Internal Medicine 12/11/18 documented as of this encounter
--- OUTSIDE RECORDS SUMMARY | 2024-11-09 22:29 | XMS_ITS | Encounter Summary ---
Author Organization [facility] Facility Care Team Providers Care Leather Goods Assembler Name Role Phone Snadrine Gamez Primary Care Provider +1- [phone] Encounter Details Date Type Department Care Team (Latest Contact Info) Description 11/27/2016 Orders Only [facility] ProviderValery MD [address] [place] [address] Social History Tobacco Use Types Packs/Day Years Used Date Smoking Tobacco: Never Assessed Sex and Gender Information Value Date Recorded Sex Assigned at Not on file Legal Sex Male 11:18 AM CLOTH LAYER Gender Identity Not on file Sexual Orientation [...] on filedocumented in this encounter Care Teams Leather Goods Assembler Relationship Specialty Start Date End Date Sandrine Gamez PA [address] [address] PCP - General Internal Medicine 12/11/18 documented as of this encounter
--- OUTSIDE RECORDS SUMMARY | 2024-11-09 22:29 | XMS_ITS | Encounter Summary ---
Author Organization [facility] Facility Care Team Providers Care Greige Goods Marker Name Role Phone Sandrine Gamez Primary Care Provider +1- [phone] Encounter Details Date Type Department Care Team (Latest Contact Info) Description 12/02/2016 Orders Only [facility] Provider, MD Valery [address] [place] [address] Social History Tobacco Use Types Packs/Day Years Used Date Smoking Tobacco: Never Assessed Sex and Gender Information Value Date Recorded Sex Assigned at Not on file Legal Sex Male 11:18 AM FUR STRETCHER Gender Identity Not on file Sexual Orientation Not on file documented as of this encounter Plan of Treatment Not on file documented as of this encounter Procedures Procedure Name Priority Date/Time Associated Diagnosis Comments CARDIOLOGY REPORT 11/21/2016 12: 00 AM FUR STRETCHER documented in this encounter Results * CARDIOLOGY REPORT (11/21/2016 12:00 AM FUR STRETCHER) Anatomical Region Laterality Modality Other Narrative 11/21/2016 12:00 AM FUR STRETCHER Ordered by an unspecified provider. Historical Provider [facility] C[facility] JOE WILBURN Final Result documented in this encounter Visit Diagnoses Not on filedocumented in this encounter Care Teams Greige Goods Marker Relationship Specialty Start Date End Date Sandrine Gamez PA [address] [place], [place] [phone] PCP - General Internal Medicine 12/11/18 documented as of this encounter
--- OUTSIDE RECORDS SUMMARY | 2024-11-09 22:29 | XMS_ITS | Encounter Summary ---
Author Organization [facility] Facility Care Team Providers Care Mosaic Worker Name Role Phone Sandrine Gamez Primary Care Provider +1- [phone] Encounter Details Date Type Department Care Team (Latest Contact Info) Description 06/20/2016 Orders Only [facility] Provider, MD Valery [address] [place] [address] Social History Tobacco Use Types Packs/Day Years Used Date Smoking Tobacco: Never Assessed Sex and Gender Information Value Date Recorded Sex Assigned at Not on file Legal Sex Male 11:18 AM SUPERVISOR WINDING DEPARTMENT Gender Identity Not on file Sexual Orientation [...] on filedocumented in this encounter Care Teams Mosaic Worker Relationship Specialty Start Date End Date Sandrine Gamez PA [address] [place], [place] [phone] PCP - General Internal Medicine 12/11/18 documented as of this encounter
--- OUTSIDE RECORDS SUMMARY | 2024-11-09 22:29 | XMS_ITS | Encounter Summary ---
Author Organization [facility] Facility Care Team Providers Care Filter Washer Name Role Phone Sandrine Gamez Primary Care Provider [phone]- [phone] Encounter Details Date Type Department Care Team (Latest Contact Info) Description 11/07/2016 Orders Only [facility] CLINCONV Provider, MD Valery [address] [place] [address] Social History Tobacco Use Types Packs/Day Years Used Date Smoking Tobacco: Never Assessed Sex and Gender Information Value Date Recorded Sex Assigned at Not on file Legal Sex Male 11:18 AM NON DESTRUCTIVE TESTER Gender Identity Not on file Sexual Orientation Not on file documented as of this encounter Plan of Treatment Not on file documented as of this encounter Procedures Procedure Name Priority Date/Time Associated Diagnosis Comments SCAN - PATHOLOGY 11/21/2016 12:0 0 AM NON DESTRUCTIVE TESTER documented in this encounter Results * SCAN - PATHOLOGY (11/21/2016 12:00 AM NON DESTRUCTIVE TESTER) Narrative 11/21/2016 12:00 AM NON DESTRUCTIVE TESTER Ordered by an unspecified provider. Historical Provider Final Res ult documented in this encounter Visit Diagnoses Not on filedocumented in this encounter Care Teams Filter Washer Relationship Specialty Start Date End Date Sandrine Gamez PA [address] [place], [place] [id number] PCP - General Internal Medicine 12/11/18 documented as of this encounter
--- OUTSIDE RECORDS SUMMARY | 2024-11-09 22:30 | XMS_ITS | Referral Summary ---
Author Organization [facility] [facility] Address [address] [place] [address] Care Team Providers Care Footwear Sales Leader Name Role Phone Sandrine Gamez Primary Care Provider [phone]- [phone] Encounters Date Type Department Care Team Description 10/30/2024 Orders Only RAD ONC TREATMENTS Miscellaneous, Not In File 10/30/2024 [facility] Radiation Oncology [address] [place] [address] Irina Christiansen MD Non-small cell cancer of right lung (HCC) (Primary Dx) 10/30/2024 2:50 PM CONTINUITY READER - 10/30/2024 11:59 PM CONTINUITY READER Hospital Encounter [facility] Radiation Oncology [address] [place] [address] Irina Christiansen MD Discharge Disposition: Discharge to home or self care 10/27/2024 Nurse Triage [facility] Family Medicine [address] [facility] [address] [place] [address] Sandrine Gamez PA 10/24/2024 11:30 PM CONTINUITY READER - 10/24/2024 11:59 PM CONTINUITY READER Hospital Encounter [facility] Radiation Oncology [address] [facility] [place] [address] Irina Christiansen MD Discharge Disposition: Discharge to home or self care 10/15/2024 2:00 PM CONTINUITY READER - 10/15/2024 11:59 PM CONTINUITY READER Hospital Encounter [facility] Radiation Oncology [address] [place] [address] Irina Christiansen MD Discharge Disposition: Discharge to home or self care 10/06/2024 1:30 PM CONTINUITY READER Office Visit [facility] Medicine [address] [facility] [address] [place] [address] Sandrine Gamez PA Dysuria (Primary Dx); Late onset Alzheimer's dementia without behavioral disturbance (HCC); BMI 22.0-22.9, adult 09/25/2024 Telephone [facility] Radiation Oncology [address] [place] [address] Deepti Mead RN 09/25/2024 1:00 PM CONTINUITY READER Consult [facility] Radiation Oncology [address] [place] [address] Irina Christiansen MD Lymphadenopathy, hilar 09/16/[address] [place] [address] Sandrine Gamez PA 09/09/2024 Orders Only [facility] Information Management [address] [place] [address] Scanning, Provider 09/08/[address] [facility] 8th [place] [address] [place] [address] Ryder Burnham, RMA Lymphadenopathy, hilar (Primary Dx) [...] 10 mg tabletIndications :Alzheimer's disease, unspecified (CODE) ([facility]) Take 1 tablet by mouth once daily 90 tablet 025 Active ALPRAZolam (XANAX) 0.5 mg tabletIndications :Anxiety Take 1/2 (one-half) tablet by mouth once daily 45 tablet 025 Active ALPRAZolam (XANAX) 0.5 mg tabletIndications :Anxiety Take 0.5 tablets (0.25 mg total) by mouth daily 45 tablet 1 024 2024 Discontinued memantine (NAMENDA) 10 mg tabletIndications :Alzheimer's disease, unspecified (CODE) ([facility]) Take 1 tablet by mouth once daily [...] 10/05/2023 Assessment & Plan (11/14/2023 1:52 PM CONTINUITY READER): Managed by cardio Dr. Pang's office. On beta-harry at with good control blood pressure. Is sinus Ortiz but denies any dizziness or symptoms so per their note will continue with current regimen Stressed hydration. Encouraged 32 oz water x2 every day Assessment & Plan (10/05/2023 9:44 AM CONTINUITY READER): Hx of sinus bradycardia and PVCs. Per [...] 01/22/2023 Assessment & Plan (10/06/2024 1:31 PM CONTINUITY READER): Weight/BMI is in healthy range. Continue healthy lifestyle to maintain. Assessment & Plan (07/05/2024 9:47 PM CDT): Weight/BMI is in healthy range. Continue healthy lifestyle to maintain. Assessment & Plan (03/30/2024 8:56 PM CDT): Weight/BMI is in healthy range. Continue healthy lifestyle to maintain. Assessment & Plan (11/14/2023 1:51 PM CONTINUITY READER): Weight/BMI is in healthy range. Continue healthy lifestyle to maintain. Assessment & Plan (01/22/2023 1:08 PM CDT): Weight/BMI is in healthy range. Continue healthy lifestyle to maintain. Late onset Alzheimer's demen tia without behavioral disturbance 01/08/2022 Assessment & Plan (10/19/2024 2:57 PM CONTINUITY READER): Symptoms are stable. His daughter is taking [...] Namenda. Assessment & Plan (11/14/2023 1:51 PM CONTINUITY READER): Alzheimer's symptoms are stable. He has in a safe home. His daughter assists with his care. He has assistance at home for his daily needs. Continue Namenda Assessment & Plan (10/01/2022 9:53 AM CONTINUITY READER): Continue current regimen. Daughter continues to make [...] 12/04/2021 Assessment & Plan (10/01/2022 9:53 AM CONTINUITY READER): Probably multifactorial. Check labs and followup to [...] recollection. Assessment & Plan (09/14/2020 12:48 AM CONTINUITY READER): Sxs are most c/w vertigo. Antivert prn [...] will want to have this done at [facility] so she is going to research 2 she would like him to be referred to both as CT surgeon and Cardiology. She will get back with us with those name so referral can be made. Last echo and carotids looked to be about 2014 however he does get a lot of workups done at [facility] which I do not have access to. Will get the CT and consider additional workup verses having the marketing operations consultant complete since he prefers to see provider at [facility]. Assessment & Plan (05/07/2022 1:54 AM [...] symptoms. Assessment & Plan (09/11/2021 9:16 PM CONTINUITY READER): Patient states he is not having any [...] Reviewed options for assistance with cessation. [facility]ed [facility] associated with smoking. Pt declines assistance at this time but may contact the office at anytime for further help as they desire. Assessment & Plan (05/28/2021 10:09 PM CDT): Encouraged smoking cessation. Discussed 3 minutes. Reviewed options for assistance with cessation. Reviewed roasterman sequela associated with smoking. Pt declines assistance at this time but may contact the office at anytime for further help as they desire. Assessment & Plan (01/31/2021 3:24 PM CDT): Encouraged smoking cessation. Discussed 3 minutes. Reviewed options for assistance with cessation. Reviewed [facility] associated with smoking. Pt declines assistance at this time but may contact the office at anytime for further help as they desire. Assessment & Plan (10/25/2020 9:20 PM CONTINUITY READER): Encouraged smoking cessation. Discussed 3 minutes. Reviewed options for assistance with cessation. Reviewed [facility] associated with smoking. Pt declines assistance at this time but may contact the office at anytime for further help as they desire. Assessment & Plan (04/20/2020 11:46 PM CDT): Encouraged smoking cessation. Discussed 3 minutes. Reviewed options for assistance with cessation. Reviewed [facility] associated with smoking. Pt declines assistance at this time but may contact the office at anytime for further help as they desire. Assessment & Plan (04/20/2020 11:36 PM CDT): Encouraged smoking cessation. Discussed 3 minutes. Reviewed options for assistance with cessation. Reviewed roasterman sequela associated with smoking. Pt declines assistance at this time but may contact the office at anytime for further help as they desire. Assessment & Plan (07/15/2019 9:39 PM CDT): Encouraged smoking cessation. Discussed 3 minutes. Reviewed options for assistance with cessation. Reviewed [facility] associated with smoking. Pt declines assistance at this time but may contact the office at anytime for further help as they desire. Assessment & Plan (04/09/2019 9:00 PM CDT): Encouraged smoking cessation. Discussed approx 3 minutes. Pt has no desire to stop smoking. Dysuria 04/09/2019 Assessment & Plan (10/19/2024 2:57 PM CONTINUITY READER): Patient with dysuria. Urine dip is suspicious [...] 2018 Assessment & Plan (11/14/2023 1:50 PM CONTINUITY READER): Patient requests a refill of albuterol. Will [...] medication/inhalers Assessment & Plan (10/25/2020 9:17 PM CONTINUITY READER): Breathing without difficulty. Declines using inhalers at [...] 11/14/2016 Assessment & Plan (10/25/2020 9:18 PM CONTINUITY READER): On iron supplement. 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 No evidence [...] him. Assessment & Plan (11/14/2023 1:51 PM CONTINUITY READER): Monitor AAA--Mildly dilated thoracic aorta at 4.[address] on 05/18/22. [address] Baker's last clinic note given his age, small degree of aortic dilation and stability since 2015 it is suspected that this will not pose an issue for him. 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 Assessment & Plan (09/11/2021 9:30 PM CONTINUITY READER): Discussed this thoracic aneurysm with his daughter, [...] labs. Assessment & Plan (11/14/2023 1:50 PM CONTINUITY READER): Continue levothyroxine. Monitor labs. Assessment & Plan (10/01/2022 9:50 AM CONTINUITY READER): Continue levothyroxine. Monitor labs. Assessment & Plan (03/23/2022 10:19 PM CDT): Continue levothyroxine. Monitor labs. Assessment & Plan (01/08/2022 11:57 PM CDT): Continue levothyroxine. Monitor labs. Assessment & Plan (09/11/2021 9:16 PM CONTINUITY READER): Continue levothyroxine Assessment & Plan (05/28/2021 10:07 PM CDT): Continue levothyroxine. Monitor labs. Assessment & Plan (10/25/2020 9:18 PM CONTINUITY READER): Continue the levothyroxine Assessment & Plan (04/20/2020 [...] metoprolol Assessment & Plan (11/14/2023 1:50 PM CONTINUITY READER): Bp is stable/in acceptable range for any co-morbidities. Encouraged to limit sodium intake and exercise for weight control. Continue metoprolol XL 12.5 and irbesartan 300 Assessment & Plan (10/05/2023 9:50 AM CONTINUITY READER): Blood pressure elevated today. Per daughter stable at home with occasional drops when he doesn't drink enough water. Continue current regimen with irbesartan and metoprolol XL. Notify us if consistently running >140/>90 or having consistent drop in blood pressure. Labs today. Assessment & Plan (10/01/2022 9:52 AM CONTINUITY READER): Bp is stable/in acceptable range for any [...] bid Assessment & Plan (10/25/2020 9:17 PM CONTINUITY READER): Bp is stable/in acceptable range for any [...] 10 Assessment & Plan (11/14/2023 1:51 PM CONTINUITY READER): Encouraged patient to follow low fat/low chol diet like the Mediterranean diet. Increase good fats in the diet. Increase exercise. Monitor labs as needed. Continue Crestor Assessment & Plan (10/05/2023 9:49 AM CONTINUITY READER): Continue Crestor. FLP today. Assessment & Plan (10/01/2022 9:52 AM CONTINUITY READER): Encouraged patient to follow low fat/low chol [...] Crestor. Assessment & Plan (09/11/2021 9:17 PM CONTINUITY READER): Encouraged patient to follow fat/low chol diet like the Mediterranean diet. Increase good fats in the diet. Increase exercise. Monitor labs as needed. Continue statin Assessment & Plan (05/28/2021 9:51 PM CDT): Encouraged patient to follow fat/low chol diet like the Mediterranean diet. Increase good fats in the diet. Increase exercise. Monitor labs as needed. Continue simvastatin Assessment & Plan (10/25/2020 9:18 PM CONTINUITY READER): Encouraged patient to follow fat/low chol diet [...] Remeron. Assessment & Plan (11/14/2023 1:51 PM CONTINUITY READER): Continue mirtazapine and Xanax p.r.n. Assessment & [...] remeron Assessment & Plan (10/25/2020 9:20 PM CONTINUITY READER): Stable with Remeron Resolved Problems Problem Noted Date Diagnosed Date Resolved Date Chronic swimmer's ear of both sides 12/31/2022 11/14/2023 Assessment & Plan (12/31/2022 11:12 PM CDT): Improving. Complete the drops. If drainage persists, will encourage him to followup with ENT> Has seen Aleida Rodriguez CASH APPLICATION CLERK with [facility]. BMI 22.0-22.9, adult 12/11/2022 023 Assessment & Plan (12/11/2022 1:32 PM CDT): Weight/BMI is in healthy range. Continue healthy lifestyle to maintain. BMI 21.0-21.9, adult 10/28/2022 023 Assessment & Plan (10/28/2022 9:56 PM CONTINUITY READER): Weight/BMI is in healthy range. Continue healthy lifestyle to maintain. Otitis of both ears 10/14/2022 11/14/19 24 Assessment & Plan (10/28/2022 9:57 PM CONTINUITY READER): TMs improve with the oral medication but canals are still little bit moist and irritated. Will send out ear drops. Will actually send eyedrops for the ears due to cost effectiveness. Will have him follow-up in the office in a couple of weeks to recheck and if symptoms persist will consult with ENT. Assessment & Plan (10/14/2022 8:49 PM CONTINUITY READER): Start antibiotic, antihistamine (Claritin OR Zyrtec), Mucinex [...] chart Assessment & Plan (11/14/2023 1:53 PM CONTINUITY READER): Encouraged healthy lifestyle, good nutrition and exercise. Encouraged Calcium and Vitamin D and weight bearing exercise for bone health. Reviewed immunizations. Reviewed age appropirate screenings. Medicare Wellness Documentation is completed within the chart Assessment & Plan (10/01/2022 9:54 AM CONTINUITY READER): Encouraged healthy lifestyle, good nutrition and exercise. [...] 023 Assessment & Plan (10/01/2022 9:53 AM CONTINUITY READER): Weight/BMI is in healthy range. Continue healthy [...] 022 Assessment & Plan (11/16/2021 2:11 PM CONTINUITY READER): Weight/BMI is in healthy range. Continue healthy lifestyle to maintain. BMI 21.0-21.9, adult 08/18/2021 022 Assessment & Plan (08/18/2021 2:52 PM CONTINUITY READER): Weight/BMI is in healthy range. Continue healthy [...] maintain. Assessment & Plan (10/25/2020 4:03 PM CONTINUITY READER): Weight/BMI is in healthy range. Continue healthy [...] 021 Assessment & Plan (08/18/2020 1:12 PM CONTINUITY READER): Continue healthy lifestyle to continue healthy weight Elevated BP without diagnosis of hypertension 08/09/20 20 10/25/2020 Assessment & Plan (08/09/2020 2:51 PM CONTINUITY READER): Family will monitor bp over the coming week and notify us of results We will retrieve er notes from kelli for further review Dysfunction of both eustachian tubes 08/09/2020 01/08/2022 Assessment & Plan (08/09/2020 2:51 PM CONTINUITY READER): flonase daily x 7 days BMI 22.0-22.9, [...] patient. Assessment & Plan (09/11/2021 9:16 PM CONTINUITY READER): Continue Namenda Patient would benefit from having family come with him to discuss his concerns. Assessment & Plan (05/28/2021 10:10 PM CDT): Continue namenda. Tolerating without problems. Assessment & Plan (10/25/2020 9:17 PM CONTINUITY READER): Tolerating the aricept and Namenda Assessment & [...] ongoing Assessment & Plan (10/25/2020 9:19 PM CONTINUITY READER): Encouraged smoking cessation. Discussed 3 minutes. Reviewed options for assistance with cessation. Reviewed [facility] sequ[facility] associated with smoking. Pt declines assistance [...] on file Legal Sex Male 11:18 AM CONTINUITY READER Gender Identity Not on file Sexual Orientation Not on file Occupation Industry Job Start Date Job End Date Retired. Not on file Not on file Not on file Last Filed Vital Signs Vital Sign Reading Time Taken Comments Blood Pressure 122/64 10/06/2024 1:29 PM CONTINUITY READER Pulse 56 10/06/2024 1:29 PM CONTINUITY READER Temperature 36.4 C (97.5 F) 10/06/2024 1:29 PM CONTINUITY READER Respiratory Rate 18 09/25/2024 1:50 PM CONTINUITY READER Oxygen Saturation 99% 10/06/2024 1:29 PM CONTINUITY READER Inhaled Oxygen Concentration - - Weight 53 kg (116 lb 12.8 oz) 10/30/2024 3:48 PM CONTINUITY READER Height 152.4 cm (5') 10/06/2024 1:29 PM CONTINUITY READER Body Mass Index 22.81 10/06/2024 1:29 PM CONTINUITY READER Plan of Treatment Not on file Procedures Procedure Name Priority Date/Time Associated Diagnosis Comments RAD ONC ARIA SESSION SUMMARY 10/30/2024 3:32 PM CONTINUITY READER URINE CULTURE Routine 10/06/2024 1:46 PM CONTINUITY READER Dysuria POCT URINALYSIS DIPSTICK Routine 10/06/2024 1:30 PM CONTINUITY READER Dysuria SCAN - LABS 09/09/2024 from Last 3 Months Results * RAD ONC ARIA SESSION SUMMARY (10/30/2024 3:32 PM CONTINUITY READER) Course Name [id number] _2024 ARIA Course Plan [...] Dose (cGy) 3,400 ARIA 10/30/2024 3:32 PM CONTINUITY READER us Not In File Miscellaneous RADIATION ONCOLOGY ORD ERABLES Final Result DAXA * (ABNORMAL) Urine culture Urine, clean voided (10/06/2024 1:46 PM CONTINUITY READER) Pathologist [facility] Urine culture (A) Canary[facility] Hand Comment: CULTURE, URINE, ROUTINE Micro Number: [id number] Test Status: Final Specimen Source: Urine, clean [...] loracarbef. Urine, clean voided 10/06/2024 1:46 PM CONTINUITY READER 10/07/2024 3:45 AM CONTINUITY READER Sandrine [facility] LAB MICROBIOLOGY - GENERAL ORDERABLES Final Result Performing Organization Address [facility]/State/ZIP Co de Phone Number [facility] [address] [place] [address] * (ABNORMAL) POCT urinalysis dipstick (10/06/2024 1:30 PM CONTINUITY READER) Pathologist [facility] Glucose, ur, POC Negative Negative MG/DL Bilirubin, ur, POC Negative Negative, Small, Moderate, Large Ketones, ur, POC Negative Negative Specific [place], POC 1.025 1.003 - 1.030 Blood, ur, POC Trace(A) Negative pH, ur, POC 5.5 5.0 - 8.0 Protein, ur, POC 30.(A) Negative Urobilinogen, urine, POC 0.2 0.2 - 1.0 mg/dL Nitrite, ur, POC Positive(A) Negative Leukocytes, ur, POC Small(A) Negative Lot Number [id number] Urine 10/06/2024 1:30 PM CONTINUITY READER Sandrine [facility] POINT OF CARE TEST ORDERAB LES Final Result * SCAN - LABS (09/09/2024) Provider Scanning Final Result from Last 3 Months Insurance MEDICARE [facility] [place] MEDICARE [place] MEDICARE [place] Care Teams Footwear Sales Leader Relationship Specialty Start Date End Date Sandrine Gamez PA [address] [place] [address] PCP - General Internal Medicine 12/11/18
--- OUTSIDE RECORDS SUMMARY | 2024-11-09 22:30 | XMS_ITS | Clinical Summary ---
Author Organization [facility] Address [address], [address] [address] Phone Care Team Providers Care Service Provider Name Role Phone Xochitl Marcano MD Primary Care Provide r Megan Villarreal MD Unavailable [phone] Stephen Lobato DO Unavailable [phone] Social History Tobacco Use Types Packs/Day Years Used Date Smoking Tobacco: Never Assessed Sex and Gender Information Value Date Recorded Sex Assigned at Not on file Legal Sex Male 12:44 PM FACILITY PRACTICE SPECIALIST Gender Identity Not on file Sexual Orientation Not on file Plan of Treatment Health Maintenance Due Date Last Done Comments Hepatitis C Virus (HCV) Screening 1940 TdaP Immunization 1940 Zoster Immunization (1 of 2) 1988 Respiratory Syncytial Virus (RSV) Immunization (Adult) (1 - 1-dose 75+ series) 2013 Pneumococcal Immunization (50+ years) (2 of 2 - PCV) 04/20/2021 04/20/2020 Influenza Immunization (#1) 05/18/202405/18, 06/04/2019, 06/24/2018, Additional history exists SARS-COV-2 Immunization (2023- season) 2024 Pneumococcal Immunization Combined Discontinued 04/20/2020 Hepatitis B Immunization Aged Out No longer eligible based on patient's age to complete this topic Meningococcal Immunization (ACWY) Aged Out No longer eligible based on patient's age to complete this topic Rotavirus Immunization Aged Out No lo nger eligible based on patient's age to complete this topic Care Teams Service Provider Relationship Specialty Start Date End Date Xochitl Marcano MD [address] [place] [address] [address] [address] PCP - General Family Medicine 11/08/16 Megan Villarreal MD [address] [place] [id number] Family Medicine 11/08/16 Stephen Lobato DO [address] [place] [id number] Gastroenterology 11/08/16
--- OUTSIDE RECORDS SUMMARY | 2024-11-09 22:30 | XMS_ITS | Encounter Summary ---
Author Organization [facility] Address [address] [place] [address] Phone Care Team Providers Care Mortuary Beautician Name Role Phone Sandrine Gamez Primary Care Provider [phone] Encounter Details Date Type Department Care Team [...] on file Legal Sex Male 11:18 AM ROUND BONER Gender Identity Not on file Sexual Orientation [...] on filedocumented in this encounter Care Teams Mortuary Beautician Relationship Specialty Start Date End Date Sandrine Gamez PA [address] [facility] [address] [place] [address] PCP - General Internal Medicine 12/11/18 documented as of this encounter
--- OUTSIDE RECORDS SUMMARY | 2024-11-09 22:30 | XMS_ITS ---
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 Pang's office. On beta-harry at with good control blood pressure. Is sinus Ortiz but denies any dizziness or symptoms so per their note will continue with current regimen Stressed hydration. Encouraged 32 oz water x2 every day Assessment & Plan (10/05/2023 9:44 AM PARKING REGULATION ENFORCEMENT OFFICER): Hx of sinus bradycardia and PVCs. Per [...] 01/22/2023 Assessment & Plan (10/06/2024 1:31 PM PARKING REGULATION ENFORCEMENT OFFICER): Weight/BMI is in healthy range. Continue healthy lifestyle to maintain. Assessment & Plan (07/05/2024 9:47 PM CDT): Weight/BMI is in healthy range. Continue healthy lifestyle to maintain. Assessment & Plan (03/30/2024 8:56 PM CDT): Weight/BMI is in healthy range. Continue healthy lifestyle to maintain. Assessment & Plan (11/14/2023 1:51 PM PARKING REGULATION ENFORCEMENT OFFICER): Weight/BMI is in healthy range. Continue healthy lifestyle to maintain. Assessment & Plan (01/22/2023 1:08 PM CDT): Weight/BMI is in healthy range. Continue healthy lifestyle to maintain. Late onset Alzheimer's demen tia without behavioral disturbance 01/08/2022 Assessment & Plan (10/19/2024 2:57 PM PARKING REGULATION ENFORCEMENT OFFICER): Symptoms are stable. His daughter is taking [...] Namenda. Assessment & Plan (11/14/2023 1:51 PM PARKING REGULATION ENFORCEMENT OFFICER): Alzheimer's symptoms are stable. He has in a safe home. His daughter assists with his care. He has assistance at home for his daily needs. Continue Namenda Assessment & Plan (10/01/2022 9:53 AM PARKING REGULATION ENFORCEMENT OFFICER): Continue current regimen. Daughter continues to make [...] 12/04/2021 Assessment & Plan (10/01/2022 9:53 AM PARKING REGULATION ENFORCEMENT OFFICER): Probably multifactorial. Check labs and followup to [...] recollection. Assessment & Plan (09/14/2020 12:48 AM PARKING REGULATION ENFORCEMENT OFFICER): Sxs are most c/w vertigo. Antivert prn [...] will want to have this done at [facility] so she is going to research 2 she would like him to be referred to both as CT surgeon and Cardiology. She will get back with us with those name so referral can be made. Last echo and carotids looked to be about 2014 however he does get a lot of workups done at [facility] which I do not have access to. Will get the CT and consider additional workup verses having the detective narcotics and vice complete since he prefers to see provider at [facility]. Assessment & Plan (05/07/2022 1:54 [...] symptoms. Assessment & Plan (09/11/2021 9:16 PM PARKING REGULATION ENFORCEMENT OFFICER): Patient states he is not having any [...] Reviewed options for assistance with cessation. Reviewed prison sequela associated with smoking. Pt declines assistance at this time but may contact the office at anytime for further help as they desire. Assessment & Plan (05/28/2021 10:09 PM CDT): Encouraged smoking cessation. Discussed 3 minutes. Reviewed options for assistance with cessation. Reviewed prison sequela associated with smoking. Pt declines assistance at this time but may contact the office at anytime for further help as they desire. Assessment & Plan (01/31/2021 3:24 PM CDT): Encouraged smoking cessation. Discussed 3 minutes. Reviewed options for assistance with cessation. Reviewed terminal clerk sequela associated with smoking. Pt declines assistance at this time but may contact the office at anytime for further help as they desire. Assessment & Plan (10/25/2020 9:20 PM PARKING REGULATION ENFORCEMENT OFFICER): Encouraged smoking cessation. Discussed 3 minutes. Reviewed options for assistance with cessation. Reviewed prison sequela associated with smoking. Pt declines assistance at this time but may contact the office at anytime for further help as they desire. Assessment & Plan (04/20/2020 11:46 PM CDT): Encouraged smoking cessation. Discussed 3 minutes. Reviewed options for assistance with cessation. Reviewed terminal clerk sequela associated with smoking. Pt declines assistance at this time but may contact the office at anytime for further help as they desire. Assessment & Plan (04/20/2020 11:36 PM CDT): Encouraged smoking cessation. Discussed 3 minutes. Reviewed options for assistance with cessation. Reviewed terminal clerk sequela associated with smoking. Pt declines assistance at this time but may contact the office at anytime for further help as they desire. Assessment & Plan (07/15/2019 9:39 PM CDT): Encouraged smoking cessation. Discussed 3 minutes. Reviewed options for assistance with cessation. Reviewed terminal clerk sequela associated with smoking. Pt declines assistance at this time but may contact the office at anytime for further help as they desire. Assessment & Plan (04/09/2019 9:00 PM CDT): Encouraged smoking cessation. Discussed approx 3 minutes. Pt has no desire to stop smoking. Dysuria 04/09/2019 Assessment & Plan (10/19/2024 2:57 PM PARKING REGULATION ENFORCEMENT OFFICER): Patient with dysuria. Urine dip is suspicious [...] 2018 Assessment & Plan (11/14/2023 1:50 PM PARKING REGULATION ENFORCEMENT OFFICER): Patient requests a refill of albuterol. Will [...] medication/inhalers Assessment & Plan (10/25/2020 9:17 PM PARKING REGULATION ENFORCEMENT OFFICER): Breathing without difficulty. Declines using inhalers at [...] 11/14/2016 Assessment & Plan (10/25/2020 9:18 PM PARKING REGULATION ENFORCEMENT OFFICER): On iron supplement. 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 No evidence [...] him. Assessment & Plan (11/14/2023 1:51 PM PARKING REGULATION ENFORCEMENT OFFICER): Monitor AAA--Mildly dilated thoracic aorta at 4.[address] on 05/18/22. Per [address] Baker's last clinic note given his age, small degree of aortic dilation and stability since 2015 it is suspected that this will not pose an issue for him. Assessment & Plan (10/05/2023 9:48 AM PARKING REGULATION ENFORCEMENT OFFICER): Mildly dilated thoracic aorta at 4.1 cm [...] . Assessment & Plan (09/11/2021 9:30 PM PARKING REGULATION ENFORCEMENT OFFICER): Discussed this thoracic aneurysm with his daughter, [...] labs. Assessment & Plan (11/14/2023 1:50 PM PARKING REGULATION ENFORCEMENT OFFICER): Continue levothyroxine. Monitor labs. Assessment & Plan (10/01/2022 9:50 AM PARKING REGULATION ENFORCEMENT OFFICER): Continue levothyroxine. Monitor labs. Assessment & Plan (03/23/2022 10:19 PM CDT): Continue levothyroxine. Monitor labs. Assessment & Plan (01/08/2022 11:57 PM CDT): Continue levothyroxine. Monitor labs. Assessment & Plan (09/11/2021 9:16 PM PARKING REGULATION ENFORCEMENT OFFICER): Continue levothyroxine Assessment & Plan (05/28/2021 10:07 PM CDT): Continue levothyroxine. Monitor labs. Assessment & Plan (10/25/2020 9:18 PM PARKING REGULATION ENFORCEMENT OFFICER): Continue the levothyroxine Assessment & Plan (04/20/2020 [...] metoprolol Assessment & Plan (11/14/2023 1:50 PM PARKING REGULATION ENFORCEMENT OFFICER): Bp is stable/in acceptable range for any co-morbidities. Encouraged to limit sodium intake and exercise for weight control. Continue metoprolol XL 12.5 and irbesartan 300 Assessment & Plan (10/05/2023 9:50 AM PARKING REGULATION ENFORCEMENT OFFICER): Blood pressure elevated today. Per daughter stable at home with occasional drops when he doesn't drink enough water. Continue current regimen with irbesartan and metoprolol XL. Notify us if consistently running >140/>90 or having consistent drop in blood pressure. Labs today. Assessment & Plan (10/01/2022 9:52 AM PARKING REGULATION ENFORCEMENT OFFICER): Bp is stable/in acceptable range for any [...] bid Assessment & Plan (10/25/2020 9:17 PM PARKING REGULATION ENFORCEMENT OFFICER): Bp is stable/in acceptable range for any [...] 10 Assessment & Plan (11/14/2023 1:51 PM PARKING REGULATION ENFORCEMENT OFFICER): Encouraged patient to follow low fat/low chol diet like the Mediterranean diet. Increase good fats in the diet. Increase exercise. Monitor labs as needed. Continue Crestor Assessment & Plan (10/05/2023 9:49 AM PARKING REGULATION ENFORCEMENT OFFICER): Continue Crestor. FLP today. Assessment & Plan (10/01/2022 9:52 AM PARKING REGULATION ENFORCEMENT OFFICER): Encouraged patient to follow low fat/low chol [...] Crestor. Assessment & Plan (09/11/2021 9:17 PM PARKING REGULATION ENFORCEMENT OFFICER): Encouraged patient to follow fat/low chol diet like the Mediterranean diet. Increase good fats in the diet. Increase exercise. Monitor labs as needed. Continue statin Assessment & Plan (05/28/2021 9:51 PM CDT): Encouraged patient to follow fat/low chol diet like the Mediterranean diet. Increase good fats in the diet. Increase exercise. Monitor labs as needed. Continue simvastatin Assessment & Plan (10/25/2020 9:18 PM PARKING REGULATION ENFORCEMENT OFFICER): Encouraged patient to follow fat/low chol diet [...] Remeron. Assessment & Plan (11/14/2023 1:51 PM PARKING REGULATION ENFORCEMENT OFFICER): Continue mirtazapine and Xanax p.r.n. Assessment & [...] remeron Assessment & Plan (10/25/2020 9:20 PM PARKING REGULATION ENFORCEMENT OFFICER): Stable with Remeron Current Treatment and Therapy [...] 023 Assessment & Plan (10/28/2022 9:56 PM PARKING REGULATION ENFORCEMENT OFFICER): Weight/BMI is in healthy range. Continue healthy lifestyle to maintain. Otitis of both ears 10/14/2022 11/14/19 24 Assessment & Plan (10/28/2022 9:57 PM PARKING REGULATION ENFORCEMENT OFFICER): TMs improve with the oral medication but canals are still little bit moist and irritated. Will send out ear drops. Will actually send eyedrops for the ears due to cost effectiveness. Will have him follow-up in the office in a couple of weeks to recheck and if symptoms persist will consult with ENT. Assessment & Plan (10/14/2022 8:49 PM PARKING REGULATION ENFORCEMENT OFFICER): Start antibiotic, antihistamine (Claritin OR Zyrtec), Mucinex [...] chart Assessment & Plan (11/14/2023 1:53 PM PARKING REGULATION ENFORCEMENT OFFICER): Encouraged healthy lifestyle, good nutrition and exercise. Encouraged Calcium and Vitamin D and weight bearing exercise for bone health. Reviewed immunizations. Reviewed age appropirate screenings. Medicare Wellness Documentation is completed within the chart Assessment & Plan (10/01/2022 9:54 AM PARKING REGULATION ENFORCEMENT OFFICER): Encouraged healthy lifestyle, good nutrition and exercise. [...] 023 Assessment & Plan (10/01/2022 9:53 AM PARKING REGULATION ENFORCEMENT OFFICER): Weight/BMI is in healthy range. Continue healthy [...] 022 Assessment & Plan (11/16/2021 2:11 PM PARKING REGULATION ENFORCEMENT OFFICER): Weight/BMI is in healthy range. Continue healthy lifestyle to maintain. BMI 21.0-21.9, adult 08/18/2021 022 Assessment & Plan (08/18/2021 2:52 PM PARKING REGULATION ENFORCEMENT OFFICER): Weight/BMI is in healthy range. Continue healthy [...] maintain. Assessment & Plan (10/25/2020 4:03 PM PARKING REGULATION ENFORCEMENT OFFICER): Weight/BMI is in healthy range. Continue healthy [...] 021 Assessment & Plan (08/18/2020 1:12 PM PARKING REGULATION ENFORCEMENT OFFICER): Continue healthy lifestyle to continue healthy weight Elevated BP without diagnosis of hypertension 08/09/20 20 10/25/2020 Assessment & Plan (08/09/2020 2:51 PM PARKING REGULATION ENFORCEMENT OFFICER): Family will monitor bp over the coming week and notify us of results We will retrieve er notes from kelli for further review Dysfunction of both eustachian tubes 08/09/2020 01/08/2022 Assessment & Plan (08/09/2020 2:51 PM PARKING REGULATION ENFORCEMENT OFFICER): flonase daily x 7 days BMI 22.0-22.9, [...] patient. Assessment & Plan (09/11/2021 9:16 PM PARKING REGULATION ENFORCEMENT OFFICER): Continue Namenda Patient would benefit from having family come with him to discuss his concerns. Assessment & Plan (05/28/2021 10:10 PM CDT): Continue namenda. Tolerating without problems. Assessment & Plan (10/25/2020 9:17 PM PARKING REGULATION ENFORCEMENT OFFICER): Tolerating the aricept and Namenda Assessment & [...] ongoing Assessment & Plan (10/25/2020 9:19 PM PARKING REGULATION ENFORCEMENT OFFICER): Encouraged smoking cessation. Discussed 3 minutes. Reviewed options for assistance with cessation. Reviewed terminal clerk sequela associated with smoking. Pt declines assistance at this time but may contact the office at anytime for further help as they desire. Chronic sinusitis 08/26/2008 01/08/2022
--- OUTSIDE RECORDS SUMMARY | 2024-11-09 22:30 | XMS_ITS | Continuity of Care Document ---
Author Organization [facility] Address [address] [facility] [address] [place] [address] Phone Care Team Providers Care Oil Field Rig Builder Name Role Phone Claudio Singh Unavailable Unavailable Procedures Procedure Date Post-op Follow-up Visit After Cataract Laser Surgery Post-op Follow-up Visit Post-op Follow-up Visit Post-op Follow-up Visit After Cataract Laser Surgery Eye Exam & Treatment Advance Directives Directive Yes / No Effective Date File Name No Information Encounters Encounter Description Practice Location Reason(s) For Visit Diagnoses Date Provider Providers Copied on Encounter [facility], [id number] [place] [address] [address], [place], [place], [id number], [place] tel:[phone] SEC [facility] No Information 1-200 8 Krishnasamy Claudio. [address] [facility] [address], [place], [address], [place]. tel:[phone] [facility], [address], [place], [place], [id number], [place] tel:[phone] [facility] No Information 5-200 8 Krishnasamy Claudio. [address] [facility] [address], [place], [address], [place]. tel:[phone] [facility], [address], [place], [place], [id number], [place] tel:[phone] SEC Formerly named [facility] No Information 2- 8 Krishnasamy Claudio. [address] [facility] [address], [place], [facility], [place]. tel:[phone] [facility], [address], [place], [place], [id number], tel:[phone] SEC Formerly named [facility] No Information 8 Krishnasamy Claudio. [address] [facility] [address], [place], [facility], [place]. tel:[phone] [facility], [address] [place] [address] [address], [place], [place], [id number], [place] tel:[phone] [facility] No Information 1 8 Krishnasamy Claudio. [address] [place] [address], [facility], [place]. tel:[phone] [facility], [address], [place], [place], [address], [place] tel:[phone] [facility] No Information 8 Krishnasamy Claudio. [facility] [address], [place], [facility], [place]. tel:[phone] [facility], [address] [place] [address] [address], [place], [place], [id number], [place] tel:[phone] [facility] No Information 8 Krishnasamy Claudio. [facility] [address], [place], [facility], [place]. tel:[phone] Family History Family Member Type Diagnosis Age At Onset No Information Payers Payer name Insurance type Covered libertarian ID Authoriza tion(s) No Information Social History [...]
--- OUTSIDE RECORDS SUMMARY | 2024-11-09 22:30 | XMS_ITS | Encounter Summary ---
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
--- OUTSIDE RECORDS SUMMARY | 2024-11-09 22:30 | XMS_ITS | Encounter Summary ---
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
--- OUTSIDE RECORDS SUMMARY | 2024-11-09 22:30 | XMS_ITS | Encounter Summary ---
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
--- OUTSIDE RECORDS SUMMARY | 2024-11-09 22:30 | XMS_ITS | Clinical Summary ---
Author Organization [facility] [address] [facility] Address [address] [place] [address] Care Team Providers Care Vocational Technical Education Director Name Role Phone Sandrine Gamez Primary Care Provider [phone] Allergies No known active allergies Medications fluticasone [...] 10/05/2023 Assessment & Plan (11/14/2023 1:52 PM STRAW HAT BRUSHER): Managed by cardio Dr. Pang's office. On beta-harry at with good control blood pressure. Is sinus Ortiz but denies any dizziness or symptoms so per their note will continue with current regimen Stressed hydration. Encouraged 32 oz water x2 every day Assessment & Plan (10/05/2023 9:44 AM STRAW HAT BRUSHER): Hx of sinus bradycardia and PVCs. Per [...] 01/22/2023 Assessment & Plan (10/06/2024 1:31 PM STRAW HAT BRUSHER): Weight/BMI is in healthy range. Continue healthy lifestyle to maintain. Assessment & Plan (07/05/2024 9:47 PM CDT): Weight/BMI is in healthy range. Continue healthy lifestyle to maintain. Assessment & Plan (03/30/2024 8:56 PM CDT): Weight/BMI is in healthy range. Continue healthy lifestyle to maintain. Assessment & Plan (11/14/2023 1:51 PM STRAW HAT BRUSHER): Weight/BMI is in healthy range. Continue healthy lifestyle to maintain. Assessment & Plan (01/22/2023 1:08 PM CDT): Weight/BMI is in healthy range. Continue healthy lifestyle to maintain. Late onset Alzheimer's demen tia without behavioral disturbance 01/08/2022 Assessment & Plan (10/19/2024 2:57 PM STRAW HAT BRUSHER): Symptoms are stable. His daughter is taking [...] Namenda. Assessment & Plan (11/14/2023 1:51 PM STRAW HAT BRUSHER): Alzheimer's symptoms are stable. He has in a safe home. His daughter assists with his care. He has assistance at home for his daily needs. Continue Namenda Assessment & Plan (10/01/2022 9:53 AM STRAW HAT BRUSHER): Continue current regimen. Daughter continues to make [...] 12/04/2021 Assessment & Plan (10/01/2022 9:53 AM STRAW HAT BRUSHER): Probably multifactorial. Check labs and followup to [...] recollection. Assessment & Plan (09/14/2020 12:48 AM STRAW HAT BRUSHER): Sxs are most c/w vertigo. Antivert prn [...] will want to have this done at [facility] so she is going to research 2 she would like him to be referred to both as CT surgeon and Cardiology. She will get back with us with those name so referral can be made. Last echo and carotids looked to be about 2014 however he does get a lot of workups done at [facility] which I do not have access to. Will get the CT and consider additional workup verses having the dining car steward complete since he prefers to see provider at [facility]. Assessment & Plan (05/07/2022 1:54 AM [...] symptoms. Assessment & Plan (09/11/2021 9:16 PM STRAW HAT BRUSHER): Patient states he is not having any [...] Reviewed options for assistance with cessation. Reviewed claims auditor sequela associated with smoking. Pt declines assistance at this time but may contact the office at anytime for further help as they desire. Assessment & Plan (05/28/2021 10:09 PM CDT): Encouraged smoking cessation. Discussed 3 minutes. Reviewed options for assistance with cessation. Reviewed nursing home sequela associated with smoking. Pt declines assistance at this time but may contact the office at anytime for further help as they desire. Assessment & Plan (01/31/2021 3:24 PM CDT): Encouraged smoking cessation. Discussed 3 minutes. Reviewed options for assistance with cessation. Reviewed nursing home sequela associated with smoking. Pt declines assistance at this time but may contact the office at anytime for further help as they desire. Assessment & Plan (10/25/2020 9:20 PM STRAW HAT BRUSHER): Encouraged smoking cessation. Discussed 3 minutes. Reviewed options for assistance with cessation. Reviewed nursing home sequela associated with smoking. Pt declines assistance at this time but may contact the office at anytime for further help as they desire. Assessment & Plan (04/20/2020 11:46 PM CDT): Encouraged smoking cessation. Discussed 3 minutes. Reviewed options for assistance with cessation. Reviewed nursing home sequela associated with smoking. Pt declines assistance at this time but may contact the office at anytime for further help as they desire. Assessment & Plan (04/20/2020 11:36 PM CDT): Encouraged smoking cessation. Discussed 3 minutes. Reviewed options for assistance with cessation. Reviewed nursing home sequela associated with smoking. Pt declines assistance at this time but may contact the office at anytime for further help as they desire. Assessment & Plan (07/15/2019 9:39 PM CDT): Encouraged smoking cessation. Discussed 3 minutes. Reviewed options for assistance with cessation. Reviewed claims auditor sequela associated with smoking. Pt declines assistance at this time but may contact the office at anytime for further help as they desire. Assessment & Plan (04/09/2019 9:00 PM CDT): Encouraged smoking cessation. Discussed approx 3 minutes. Pt has no desire to stop smoking. Dysuria 04/09/2019 Assessment & Plan (10/19/2024 2:57 PM STRAW HAT BRUSHER): Patient with dysuria. Urine dip is suspicious [...] 2018 Assessment & Plan (11/14/2023 1:50 PM STRAW HAT BRUSHER): Patient requests a refill of albuterol. Will [...] medication/inhalers Assessment & Plan (10/25/2020 9:17 PM STRAW HAT BRUSHER): Breathing without difficulty. Declines using inhalers at [...] 11/14/2016 Assessment & Plan (10/25/2020 9:18 PM STRAW HAT BRUSHER): On iron supplement. Recheck labs to see if stable and able to stop supplement Nonrheumatic aortic valve insufficiency 11/14/19 Assessment & Plan (10/05/2023 9:49 AM STRAW HAT BRUSHER): Mild on TTE from 2014. No evidence [...] him. Assessment & Plan (11/14/2023 1:51 PM STRAW HAT BRUSHER): Monitor AAA--Mildly dilated thoracic aorta at 4.[address] on 05/18/22. [address] Baker's last clinic note given his age, small degree of aortic dilation and stability since 2015 it is suspected that this will not pose an issue for him. 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 Assessment & Plan (09/11/2021 9:30 PM STRAW HAT BRUSHER): Discussed this thoracic aneurysm with his daughter, [...] labs. Assessment & Plan (11/14/2023 1:50 PM STRAW HAT BRUSHER): Continue levothyroxine. Monitor labs. Assessment & Plan (10/01/2022 9:50 AM STRAW HAT BRUSHER): Continue levothyroxine. Monitor labs. Assessment & Plan (03/23/2022 10:19 PM CDT): Continue levothyroxine. Monitor labs. Assessment & Plan (01/08/2022 11:57 PM CDT): Continue levothyroxine. Monitor labs. Assessment & Plan (09/11/2021 9:16 PM STRAW HAT BRUSHER): Continue levothyroxine Assessment & Plan (05/28/2021 10:07 PM CDT): Continue levothyroxine. Monitor labs. Assessment & Plan (10/25/2020 9:18 PM STRAW HAT BRUSHER): Continue the levothyroxine Assessment & Plan (04/20/2020 [...] metoprolol Assessment & Plan (11/14/2023 1:50 PM STRAW HAT BRUSHER): Bp is stable/in acceptable range for any co-morbidities. Encouraged to limit sodium intake and exercise for weight control. Continue metoprolol XL 12.5 and irbesartan 300 Assessment & Plan (10/05/2023 9:50 AM STRAW HAT BRUSHER): Blood pressure elevated today. Per daughter stable at home with occasional drops when he doesn't drink enough water. Continue current regimen with irbesartan and metoprolol XL. Notify us if consistently running >140/>90 or having consistent drop in blood pressure. Labs today. Assessment & Plan (10/01/2022 9:52 AM STRAW HAT BRUSHER): Bp is stable/in acceptable range for any [...] bid Assessment & Plan (10/25/2020 9:17 PM STRAW HAT BRUSHER): Bp is stable/in acceptable range for any [...] 10 Assessment & Plan (11/14/2023 1:51 PM STRAW HAT BRUSHER): Encouraged patient to follow low fat/low chol diet like the Mediterranean diet. Increase good fats in the diet. Increase exercise. Monitor labs as needed. Continue Crestor Assessment & Plan (10/05/2023 9:49 AM STRAW HAT BRUSHER): Continue Crestor. FLP today. Assessment & Plan (10/01/2022 9:52 AM STRAW HAT BRUSHER): Encouraged patient to follow low fat/low chol [...] Crestor. Assessment & Plan (09/11/2021 9:17 PM STRAW HAT BRUSHER): Encouraged patient to follow fat/low chol diet like the Mediterranean diet. Increase good fats in the diet. Increase exercise. Monitor labs as needed. Continue statin Assessment & Plan (05/28/2021 9:51 PM CDT): Encouraged patient to follow fat/low chol diet like the Mediterranean diet. Increase good fats in the diet. Increase exercise. Monitor labs as needed. Continue simvastatin Assessment & Plan (10/25/2020 9:18 PM STRAW HAT BRUSHER): Encouraged patient to follow fat/low chol diet [...] Remeron. Assessment & Plan (11/14/2023 1:51 PM STRAW HAT BRUSHER): Continue mirtazapine and Xanax p.r.n. Assessment & [...] remeron Assessment & Plan (10/25/2020 9:20 PM STRAW HAT BRUSHER): Stable with Remeron Resolved Problems Problem Noted [...] 023 Assessment & Plan (10/28/2022 9:56 PM STRAW HAT BRUSHER): Weight/BMI is in healthy range. Continue healthy lifestyle to maintain. Otitis of both ears 10/14/2022 11/14/19 24 Assessment & Plan (10/28/2022 9:57 PM STRAW HAT BRUSHER): TMs improve with the oral medication but canals are still little bit moist and irritated. Will send out ear drops. Will actually send eyedrops for the ears due to cost effectiveness. Will have him follow-up in the office in a couple of weeks to recheck and if symptoms persist will consult with ENT. Assessment & Plan (10/14/2022 8:49 PM STRAW HAT BRUSHER): Start antibiotic, antihistamine (Claritin OR Zyrtec), Mucinex [...] chart Assessment & Plan (11/14/2023 1:53 PM STRAW HAT BRUSHER): Encouraged healthy lifestyle, good nutrition and exercise. Encouraged Calcium and Vitamin D and weight bearing exercise for bone health. Reviewed immunizations. Reviewed age appropirate screenings. Medicare Wellness Documentation is completed within the chart Assessment & Plan (10/01/2022 9:54 AM STRAW HAT BRUSHER): Encouraged healthy lifestyle, good nutrition and exercise. [...] 023 Assessment & Plan (10/01/2022 9:53 AM STRAW HAT BRUSHER): Weight/BMI is in healthy range. Continue healthy [...] 022 Assessment & Plan (11/16/2021 2:11 PM STRAW HAT BRUSHER): Weight/BMI is in healthy range. Continue healthy lifestyle to maintain. BMI 21.0-21.9, adult 08/18/2021 022 Assessment & Plan (08/18/2021 2:52 PM STRAW HAT BRUSHER): Weight/BMI is in healthy range. Continue healthy [...] maintain. Assessment & Plan (10/25/2020 4:03 PM STRAW HAT BRUSHER): Weight/BMI is in healthy range. Continue healthy [...] 021 Assessment & Plan (08/18/2020 1:12 PM STRAW HAT BRUSHER): Continue healthy lifestyle to continue healthy weight Elevated BP without diagnosis of hypertension 08/09/20 20 10/25/2020 Assessment & Plan (08/09/2020 2:51 PM STRAW HAT BRUSHER): Family will monitor bp over the coming week and notify us of results We will retrieve er notes from kelli for further review Dysfunction of both eustachian tubes 08/09/2020 01/08/2022 Assessment & Plan (08/09/2020 2:51 PM STRAW HAT BRUSHER): flonase daily x 7 days BMI 22.0-22.9, [...] patient. Assessment & Plan (09/11/2021 9:16 PM STRAW HAT BRUSHER): Continue Namenda Patient would benefit from having family come with him to discuss his concerns. Assessment & Plan (05/28/2021 10:10 PM CDT): Continue namenda. Tolerating without problems. Assessment & Plan (10/25/2020 9:17 PM STRAW HAT BRUSHER): Tolerating the aricept and Namenda Assessment & [...] ongoing Assessment & Plan (10/25/2020 9:19 PM STRAW HAT BRUSHER): Encouraged smoking cessation. Discussed 3 minutes. Reviewed options for assistance with cessation. Reviewed claims auditor sequela associated with smoking. Pt declines assistance at this time but may contact the office at anytime for further help as they desire. Chronic sinusitis 08/26/2008 01/08/2022 Encounters Date Type Department Care Team Description 10/30/2024 2:50 PM STRAW HAT BRUSHER - 10/30/2024 11:59 PM STR[facility] HAT BRUSHER Hospital Encounter [facility] Advanced Medicine Radiation Oncology [address] [place] [address] Irina Christiansen MD Discharge Disposition: Discharge to home or self care 10/30/2024 Orders Only RAD ONC TREATMENTS Miscellaneous, Not In File 10/30/2024 OTV [facility] Advanced Medicine Radiation Oncology [address] [place] [address] Irina Christiansen MD Non-small cell cancer of right lung (HCC) (Primary Dx) 10/27/2024 Nurse Triage [facility] [address] [place] [address] Sandrine Gamez PA 10/24/2024 11:30 PM STRAW [facility]AT BRUSHER - 10/24/2024 11:59 PM STRAW [facility]AT BRUSHER Hospital Encounter [facility] Advanced Medicine Radiation Oncology [address] [place] [address] Irina Christiansen MD Discharge Disposition: Discharge to home or self care 10/15/2024 2:00 PM STRAW HAT BRUSHER - 10/15/2024 11:59 PM STRAW [facility]AT BRUSHER Hospital Encounter [facility] Radiation Oncology [address] [place] [address] Irina Christiansen MD Discharge Disposition: Discharge to home or self care 10/06/2024 1:30 PM STRAW HAT BRUSHER Office Visit [facility] [address] [place] [address] Sandrine Gamez PA Dysuria (Primary Dx); Late onset Alzheimer's dementia without behavioral disturbance (HCC); BMI 22.0-22.9, adult 09/25/2024 1:00 PM STRAW HAT BRUSHER Consult [facility] Radiation Oncology [facility] [place] [address] Irina Christiansen MD Lymphadenopathy, hilar 09/25/2024 Telephone [facility] Radiation Oncology [address] [place] [address] Deepti Mead, RN 09/16/2024 Telephone [facility] [address] [place] [address] [address] [place] [address] Sandrine Gamez PA 09/09/2024 Orders Only [facility] Health Information Management [address] [place] [address] Scanning, Provider 09/08/2024 Orders Only [facility] Pulmonary [facility] [address] [place] [address] [place] [id number] Ryder Burnham, MORELIA Lymphadenopathy, hilar (Primary Dx) [...] on file Legal Sex Male 11:18 AM STRAW HAT BRUSHER Gender Identity Not on file Sexual Orientation Not on file Occupation Industry Job Start Date Job End Date Retired. Not on file Not on file Not on file Obstetrics History Last Filed Vital Signs Vital Sign Reading Time Taken Comments Blood Pressure 122/64 10/06/2024 1:29 PM STRAW HAT BRUSHER Pulse 56 10/06/2024 1:29 PM STRAW [facility]AT BRUSHER Temperature 36.4 C (97.5 F) 10/06/2024 1:29 PM STRAW HAT BRUSHER Respiratory Rate 18 09/25/2024 1:50 PM STRAW HAT BRUSHER Oxygen Saturation 99% 10/06/2024 1:29 PM STRAW HAT BRUSHER Inhaled Oxygen Concentration - - Weight 53 kg (116 lb 12.8 oz) 10/30/2024 3:48 PM STRAW HAT BRUSHER Height 152.4 cm (5') 10/06/2024 1:29 PM STRAW HAT BRUSHER Body Mass Index 22.81 10/06/2024 1:29 PM STRAW HAT BRUSHER Plan of Treatment Health Maintenance Due Date [...] ONC ARIA SESSION SUMMARY 10/30/2024 3:32 PM STRAW HAT BRUSHER URINE CULTURE Routine 10/06/2024 1:46 PM STRAW HAT BRUSHER Dysuria POCT URINALYSIS DIPSTICK Routine 10/06/2024 1:30 PM STRAW HAT BRUSHER Dysuria SCAN - LABS 09/09/2024 from Last 3 Months Results * RAD ONC ARIA SESSION SUMMARY (10/30/2024 3:32 PM STRAW HAT BRUSHER) Course Name [id number] _2024 ARIA Course Plan [...] Dose (cGy) 3,400 ARIA 10/30/2024 3:32 PM STRAW HAT BRUSHER us Not In File Miscellaneous RADIATION ONCOLOGY ORD ERABLES Final Result ARIA * (ABNORMAL) Urine culture Urine, clean voided (10/06/2024 1:46 PM STRAW HAT BRUSHER) Urine culture (A) nothingGrinder DiagnosticsRossana Hand Comment: CULTURE, URINE, ROUTINE Micro Number: [id number] Test Status: Final Specimen Source: Urine, clean [...] loracarbef. Urine, clean voided 10/06/2024 1:46 PM STRAW HAT BRUSHER 10/07/2024 3:45 AM STRAW HAT BRUSHER Result [facility] Sandrine [facility] LAB MICROBIOLOGY - GENERAL ORDERABLES Final Result [facility] [address] [place] [address] * (ABNORMAL) POCT urinalysis dipstick (10/06/2024 1:30 PM STRAW HAT BRUSHER) Pathologist [facility] Glucose, ur, POC Negative Negative MG/DL Bilirubin, ur, POC Negative Negative, Small, Moderate, Large Ketones, ur, POC Negative Negative Specific [place], POC 1.025 1.003 - 1.030 Blood, ur, POC Trace(A) Negative pH, ur, POC 5.5 5.0 - 8.0 Protein, ur, POC 30.(A) Negative Urobilinogen, urine, POC 0.2 0.2 - 1.0 mg/dL Nitrite, ur, POC Positive(A) Negative Leukocytes, ur, POC Small(A) Negative Lot Number [id number] Urine 10/06/2024 1:30 PM STRAW HAT BRUSHER Result [facility] Sandrine [place] POINT OF CARE TEST ORDERAB LES Final Result * SCAN - LABS (09/09/2024) Provider Scanning Final Result from Last [address] [facility] IDPA MEDICARE IDPA MEDICARE [facility] Address: [address] [place] [id number] [facility] Care Teams Vocational Technical Education Director Relationship Specialty Start Date End Date Sandrine Gamez PA [address] [place] [address] PCP - General Internal Medicine 12/11/18
== END 2024-11-09 22:28 | disposition left against medical advice (07) ==
LOC: ANHED 22:27
PROVIDERS: PCP Physician Assistant
DX: R55 Syncope and collapse (principal)
CPT/HCPCS: 99199

== ENCOUNTER → 2024-11-12 14:30 | Outpatient (CLI) | payer MEDICARE, MEDICAID, SELFPAY ==
--- NOTE | ~2024-11-12 | XR_ITS ---
EXAM: XR humerus RT, XR elbow RT min 3V DATE: 11/12/2024 14:59 HISTORY: pain rt elbow and humerus s/p fall today . COMPARISON: None available. FINDINGS: Decreased mineralization. No acute fracture or dislocation definitively visualized, robe r there is anterior displacement of the anterior fat pad indicative of a joint effusion which can acc ompany occult fracture. No lytic or blastic lesion. Severe degenerative change at the AC joint. Mild degenerative changes shoulder and elbow joints. Medial and lateral epicondylar enthesopathy. No erosi on or periosteal change. Soft tissues within normal limits. IMPRESSION: Right elbow joint effusion, may be secondary to degenerative change or occult radial head fracture. Osteopenia. Severe degenerative change at the AC joint. Reviewed, dictated and finalized at location K. [employer] IMPRESSION: Right elbow joint effusion, may be secondary to degenerative change or occult radial head fracture. Osteopenia. Severe degenerative change at the AC joint.
== END ==
PROVIDERS: PCP Physician Assistant; Visit Provider Physician Assistant
DX: M25.421 Effusion, right elbow (principal); M85.80 Other specified disorders of bone density and structure, unspecified site; M19.011 Primary osteoarthritis, right shoulder
CPT/HCPCS: 73060; 73080

== ENCOUNTER 2024-11-12 18:36 | Emergency (ER) | payer MEDICARE, MEDICAID, SELFPAY ==
[2024-11-12] VITALS (7 sets, daily range): BP systolic 122–146; BP diastolic 58–71; PULSE 62–69; RESP 16–19; TEMP 36.4; O2SAT 98–100
--- NOTE | 2024-11-12 19:04 | ED.RECABL ---
HPI - Recheck/Abnormal Lab/Rx General Chief Complaint: Recheck/Abnormal Lab/Rx <Kelley Bowden PA-C - Last Filed: 11/13/24 10:23> Stated Complaint: hgb of 6.1 and syncope <Kelley Bowden PA-C - Last Filed: 11/13/24 10:23> Time Seen by Provider: 11/12/24 19:04 <Kelley Bowden PA-C - Last Filed: 11/13/24 10:23> Focused HPI: This is a 84 year old male that presents to the ER after a syncopal episode on Sunday. EMS was called and he was hydrated. He came to the ER, but did not wait to be seen. Reports they were called today and told his hemoglobin was 6.1. This was blood work was done outpatient by his PCP yesterday. Reports he has been dizzy, weak. Does have history of GI bleeding. No current noted bleeding. Also reports he is currently on antibiotics for a UTI, Macrobid. He is currently undergoing radiation for lung cancer. He is currently taking Aspirin, he has history of aortic aneurysm. GENERAL: Pale, well-nourished, and in no acute distress. HEAD: Normocephalic, atraumatic. CHEST: Clear to auscultation. ?No respiratory distress. HEART: Regular rate and rhythm.? NEURO: ?Alert and oriented x3. Patient screened in triage and initial orders placed.? ?Additional care and disposition to be based upon?diagnostic testing and treatment. <Kelley Bowden PA-C - Last Filed: 11/13/24 10:23> History of Present Illness HPI narrative: Agree with the HPI above. His caregivers at bedside who is also a nurse. States that there is but no melanotic or dark stools, no coffee-ground emesis or any active bleeding. Patient does appear more pale than usual. Remote history of GI bleed many years ago. Being surveilled for thoracic and abdominal aortic aneurysms currently on baby aspirin, was told previously need to be on Eliquis for thrombosis of these aneurysms but he is too high risk so they elected for aspirin instead. Last dose baby aspirin this morning. No other anticoagulants. No recent injuries otherwise. <Franco Joseph MD - Last Filed: 11/13/24 00:57> Related Data Home Medications: Home Medications ?Medication ?Instructions ?Recorded ?Confirmed ?Last Taken ?Type alprazolam 0.25 mg tablet 0.25 mg PO HS 08/07/20 09/09/24 Unknown History levothyroxine 50 mcg tablet 50 mcg PO DAILY 08/07/20 09/09/24 Unknown History memantine 10 mg tablet 10 mg PO HS 08/07/20 09/09/24 Unknown History mirtazapine 30 mg tablet 30 mg PO HS 08/07/20 09/09/24 Unknown History pantoprazole 40 mg tablet,delayed 40 mg PO DAILY 08/07/20 09/09/24 Unknown History release simvastatin 40 mg tablet 40 mg PO HS 08/07/20 09/09/24 Unknown History fluticasone propionate 50 1 spray intranasal DAILY 10/27/21 09/09/24 Unknown History mcg/actuation nasal spray,suspension lisinopril 10 mg tablet 10 mg PO Q12H 10/27/21 09/09/24 Unknown History psyllium husk 0.4 gram capsule 0.4 g PO DAILY 10/27/21 09/09/24 Unknown History (Daily Fiber) amlodipine 5 mg tablet 5 mg PO DAILY 01/23/22 09/09/24 Unknown History <Kelley Bowden PA-C - Last Filed: 11/13/24 10:23> Allergies/Adverse Reactions: Allergies Allergy/AdvReac Type Severity Reaction Status Date / Time No Known Allergies Allergy Verified 11/12/24 18:38 <Kelley Bowden PA-C - Last Filed: 11/13/24 10:23> Review of Systems Review of Systems: As reviewed above in HPI <Franco Joseph MD - Last Filed: 11/13/24 00:57> [facility] Past Medical History Medical History: Medical History Vertigo Colon cancer screening Dehydration CVA (cerebral vascular accident) Hypertension <Kelley Bowden PA-C - Last Filed: 11/13/24 10:23> Family History Family History: Family History Mother Patient's mother is Father Patient's father is <Kelley Bowden PA-C - Last Filed: 11/13/24 10:23> Social History Social History: Social History Smoking packs per day: 1 Smoking cigarettes per day: 20.0 Years smoked: 60 Smoking pack-years: 60.00 Smoking status: Former smoker Tobacco type: cigarettes Alcohol intake: never Substance use: never Substance use type: does not use Lack of Transportation: No Lack of Food: Never True Current Housing: I Have Housing Concerned About Future Housing: No Difficulty Paying Gas/Electric Bills: No Difficulty Paying for Meds: No Currently Unemployed: No Education: High School Diploma/GED Difficulty w/ Childcare or Family Care: No Living arrangements: with family Spiritual care concerns: No <Kelley Bowden PA-C - Last Filed: 11/13/24 10:23> Exam Narrative: GENERAL: [Well-appearing, well-nourished, and in no acute distress.] HEAD: [Normocephalic, atraumatic.] EYES: Pupils are equal reactive to light, bilateral conjunctiva pallor ENT: Nares clear, no rhinorrhea or epistaxis. Mucous membranes moist. NECK: Supple. CHEST: [Clear to auscultation. No respiratory distress.] HEART: [Regular rate and rhythm]. No murmur heard. [Normal peripheral pulses.] ABDOMEN: [Soft, nondistended], [nontender], [No rigidity or guarding] EXTREMITIES: Normal range of motion. [No edema.] SKIN: Warm, dry, no rash. NEURO: [No focal deficits]. Alert and oriented at his baseline, history of dementia PSYCH: [Normal mood and affect.] <Franco Joseph MD - Last Filed: 11/13/24 00:57> Course Vital Signs Vital signs: Vital Signs Temperature 97.5 F L 11/12/24 19:13 Pulse Rate 62 11/12/24 19:13 Respiratory Rate 18 11/12/24 19:13 Blood Pressure 122/58 L 11/12/24 19:13 Pulse Oximetry 99 11/12/24 19:13 Temperature 97.5 F L 11/12/24 22:36 Pulse Rate 65 11/13/24 01:17 Respiratory Rate 15 11/13/24 01:17 Blood Pressure 142/83 H 11/13/24 01:17 Pulse Oximetry 99 11/13/24 01:17 <Kelley Bowden PA-C - Last Filed: 11/13/24 10:23> Vital Signs Temperature 97.5 F L 11/12/24 19:13 Pulse Rate 62 11/12/24 19:13 Respiratory Rate 18 11/12/24 19:13 Blood Pressure 122/58 L 11/12/24 19:13 Pulse Oximetry 99 11/12/24 19:13 Temperature 97.5 F L 11/12/24 22:36 Pulse Rate 65 11/13/24 01:17 Respiratory Rate 15 11/13/24 01:17 Blood Pressure 142/83 H 11/13/24 01:17 Pulse Oximetry 99 11/13/24 01:17 <Franco Joseph MD - Last Filed: 11/13/24 00:57> MDM - Recheck/Abnormal Lab/Rx MDM Narrative Medical decision making narrative: 84-year-old male with a past medical history including dementia, 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 Patient takes baby aspirin daily. Presents to the ER for evaluation of low hemoglobin found on outside hospital labs. Hemoglobin of 6.1 and a syncopal event several days ago. Today presents with a lower hemoglobin of 5.6. On review of his my chart patient has a hemoglobin baseline around 12-13 with most recent level of 12.3 at September 29. Patient has multiple specialist at [facility] with the [facility] system. No dark melanotic stools or blood in his stool, no coffee-ground emesis. Only recent change in his regimen according to the caregiver bedside is the knee radiation therapy for his lung cancer. Patient himself is not any acute distress, answering all questions appropriately and is baseline mentation with a history of dementia. He does appear very pale, has stable vital signs with a tachycardia, fever, hypoxia blood pressure concerns. Repeat labs show hemoglobin 5.6 dropped from 6.1 yesterday, precipitous drop from his baseline without any clear cause. Could be secondary to GI bleeding, aortic aneurysm, reaction to his recent radiation or progression of his cancer. Given his vital stability unlikely to be massive ongoing GI bleed but still possible. He was given 80 mg of Protonix, 2 units of typed and cross blood cells were ordered. CBC, CMP, coag studies, CT angiography of his chest abdomen pelvis were ordered per potential active extravasation or evaluation of his aneurysms. EKG and chest x-ray obtained. He was given a L of fluid. 10 of IV Reglan for potential GI bleed. Patient was re-evaluated and still asymptomatic while here in the emergency department. Stool guaiac test was negative. CT scan shows stable aneurysm without any acute abdominal pelvic or thoracic process. Right lobe nodule which is known to be patient's cancer currently getting treatment. Repeat H&H before blood RD stable at 5.8, will obtain 2 unit transfusion and repeat hemoglobin afterwards. Assuming he remains hemodynamically stable and has appropriate response to blood products family would be comfortable with him going home as he has very close outpatient follow-up at [facility] system and can be seen tomorrow. Patient has no other concerns at this time, will obtain repeat lab draw after blood products. Remains on telemetry monitoring. Repeat H&H post infusions came up to 8.6 which is an appropriate response. Patient's hemoglobin has improved and his vitals have remained stable. He remains without symptoms while here in the emergency department. Patient's family states that they were comfortable with him going home and having close follow-up with his PCP tomorrow morning. Patient and family are comfortable with this plan and were given very strict return precautions in the event he has any recurrent syncope, lightheadedness, pain develops or any other concerns and he should seek medical attention at that time. Patient was safely discharged home at this time. Caregiver at bedside will drive him home. <Franco Joseph MD - Last Filed: 11/13/24 00:57> Medical Records Attestation: I reviewed the patient's medical records. <Franco Joseph MD - Last Filed: 11/13/24 00:57> Lab Data Attestation: I reviewed the patient's lab results. <Franco Joseph MD - Last Filed: 11/13/24 00:57> Result diagrams: 11/13/24 00:20 11/12/24 19:10 <Kelley Bowden PA-C - Last Filed: 11/13/24 10:23> Labs: Lab Results 11/12/24 11/12/24 11/12/24 Range/Units 19:10 19:10 19:10 WBC 6.6 (4.5-10.0) K/mm3 RBC 2.94 L (4.6-6.20) M/mm3 Hgb 5.6 L* D (14.0-18.0) g/dL Hct 19.9 L* (42.0-52.0) % MCV 67.7 L (80-100) fl MCH 19.0 L (26-34) pg MCHC 28.1 L (32-36) g/dl RDW 19.6 H (11.5-14.5) % Plt Count 235 (150-375) k/mm3 MPV 9.5 (7.4-10.4) fl Immature Gran % (Auto) 0.5 (0-0.5) % Neut % (Auto) 62.7 (45.5-73.1) % Lymph % (Auto) 22.2 (18.3-44.2) % Carroll % (Auto) 10.6 H (2.6-8.5) % Eos % (Auto) 3.5 (0-4.4) % Baso % (Auto) 0.5 (0.2-1.2) % Lymph # (Auto) 1.46 (0.9-3.2) K/mm3 Carroll # (Auto) 0.7 H (0.1-0.6) K/mm3 Eos # (Auto) 0.2 (0-0.3) K/mm3 Baso # (Auto) 0.0 (0.0-0.1) K/mm3 Abs Immat Gran (auto) 0.03 (0.00-0.031) K/mm3 Absolute Neuts (auto) 4.1 (1.3-6.7) K/mm3 Absolute Nucleated RBC 0.000 (0.0-0.012) K/mm3 Band Neutrophils % Not Reportable Nucleated RBC % 0.0 (0.0-0.2) % Platelet Estimate Adequate (Adequate) Hypochromasia 1+ Anisocytosis 2+ Microcytosis 1+ (NORMAL) Ovalocytes 1+ Schistocytes 1+ PT 13.8 (11.1-14.7) Seconds INR 1.0 APTT 37.8 H (22.3-36.8) Seconds Sodium Cancelled 137 Potassium Cancelled 4.4 Chloride Cancelled Carbon Dioxide Anion Gap BUN Creatinine Estim Creat Clear Calc Estimated GFR Glucose Calcium Total Bilirubin AST ALT Alkaline Phosphatase Troponin I (0.000-0.034) ng/mL Total Protein Albumin Blood Type Antibody Screen Crossmatch 11/12/24 11/12/24 11/12/24 Range/Units 19:10 19:10 19:10 WBC (4.5-10.0) K/mm3 RBC (4.6-6.20) M/mm3 Hgb (14.0-18.0) g/dL Hct (42.0-52.0) % MCV (80-100) fl MCH (26-34) pg MCHC (32-36) g/dl RDW (11.5-14.5) % Plt Count (150-375) k/mm3 MPV (7.4-10.4) fl Immature Gran % (Auto) (0-0.5) % Neut % (Auto) (45.5-73.1) % Lymph % (Auto) (18.3-44.2) % Carroll % (Auto) (2.6-8.5) % Eos % (Auto) (0-4.4) % Baso % (Auto) (0.2-1.2) % Lymph # (Auto) (0.9-3.2) K/mm3 Carroll # (Auto) (0.1-0.6) K/mm3 Eos # (Auto) (0-0.3) K/mm3 Baso # (Auto) (0.0-0.1) K/mm3 Abs Immat Gran (auto) (0.00-0.031) K/mm3 Absolute Neuts (auto) (1.3-6.7) K/mm3 Absolute Nucleated RBC (0.0-0.012) K/mm3 Band Neutrophils % Nucleated RBC % (0.0-0.2) % Platelet Estimate (Adequate) Hypochromasia Anisocytosis Microcytosis (NORMAL) Ovalocytes Schistocytes PT (11.1-14.7) Seconds INR APTT (22.3-36.8) Seconds Sodium Potassium Chloride 108 H Carbon Dioxide Cancelled 20 L Anion Gap Cancelled 9 BUN Cancelled Creatinine Estim Creat Clear Calc Estimated GFR Glucose Calcium Total Bilirubin AST ALT Alkaline Phosphatase Troponin I (0.000-0.034) ng/mL Total Protein Albumin Blood Type Antibody Screen Crossmatch 11/12/24 11/12/24 11/12/24 Range/Units 19:10 19:10 19:10 WBC (4.5-10.0) K/mm3 RBC (4.6-6.20) M/mm3 Hgb (14.0-18.0) g/dL Hct (42.0-52.0) % MCV (80-100) fl MCH (26-34) pg MCHC (32-36) g/dl RDW (11.5-14.5) % Plt Count (150-375) k/mm3 MPV (7.4-10.4) fl Immature Gran % (Auto) (0-0.5) % Neut % (Auto) (45.5-73.1) % Lymph % (Auto) (18.3-44.2) % Carroll % (Auto) (2.6-8.5) % Eos % (Auto) (0-4.4) % Baso % (Auto) (0.2-1.2) % Lymph # (Auto) (0.9-3.2) K/mm3 Carroll # (Auto) (0.1-0.6) K/mm3 Eos # (Auto) (0-0.3) K/mm3 Baso # (Auto) (0.0-0.1) K/mm3 Abs Immat Gran (auto) (0.00-0.031) K/mm3 Absolute Neuts (auto) (1.3-6.7) K/mm3 Absolute Nucleated RBC (0.0-0.012) K/mm3 Band Neutrophils % Nucleated RBC % (0.0-0.2) % Platelet Estimate (Adequate) Hypochromasia Anisocytosis Microcytosis (NORMAL) Ovalocytes Schistocytes PT (11.1-14.7) Seconds INR APTT (22.3-36.8) Seconds Sodium Potassium Chloride Carbon Dioxide Anion Gap BUN 20 Creatinine Cancelled 1.12 Estim Creat Clear Calc Cancelled Not Reportable Estimated GFR Cancelled Glucose Calcium Total Bilirubin AST ALT Alkaline Phosphatase Troponin I (0.000-0.034) ng/mL Total Protein Albumin Blood Type Antibody Screen Crossmatch 11/12/24 11/12/24 11/12/24 Range/Units 19:10 19:10 19:10 WBC (4.5-10.0) K/mm3 RBC (4.6-6.20) M/mm3 Hgb (14.0-18.0) g/dL Hct (42.0-52.0) % MCV (80-100) fl MCH (26-34) pg MCHC (32-36) g/dl RDW (11.5-14.5) % Plt Count (150-375) k/mm3 MPV (7.4-10.4) fl Immature Gran % (Auto) (0-0.5) % Neut % (Auto) (45.5-73.1) % Lymph % (Auto) (18.3-44.2) % Carroll % (Auto) (2.6-8.5) % Eos % (Auto) (0-4.4) % Baso % (Auto) (0.2-1.2) % Lymph # (Auto) (0.9-3.2) K/mm3 Carroll # (Auto) (0.1-0.6) K/mm3 Eos # (Auto) (0-0.3) K/mm3 Baso # (Auto) (0.0-0.1) K/mm3 Abs Immat Gran (auto) (0.00-0.031) K/mm3 Absolute Neuts (auto) (1.3-6.7) K/mm3 Absolute Nucleated RBC (0.0-0.012) K/mm3 Band Neutrophils % Nucleated RBC % (0.0-0.2) % Platelet Estimate (Adequate) Hypochromasia Anisocytosis Microcytosis (NORMAL) Ovalocytes Schistocytes PT (11.1-14.7) Seconds INR APTT (22.3-36.8) Seconds Sodium Potassium Chloride Carbon Dioxide Anion Gap BUN Creatinine Estim Creat Clear Calc Estimated GFR > 60 Glucose Cancelled 96 Calcium Cancelled 8.6 Total Bilirubin Cancelled AST ALT Alkaline Phosphatase Troponin I (0.000-0.034) ng/mL Total Protein Albumin Blood Type Antibody Screen Crossmatch 11/12/24 11/12/24 11/12/24 Range/Units 19:10 19:10 19:10 WBC (4.5-10.0) K/mm3 RBC (4.6-6.20) M/mm3 Hgb (14.0-18.0) g/dL Hct (42.0-52.0) % MCV (80-100) fl MCH (26-34) pg MCHC (32-36) g/dl RDW (11.5-14.5) % Plt Count (150-375) k/mm3 MPV (7.4-10.4) fl Immature Gran % (Auto) (0-0.5) % Neut % (Auto) (45.5-73.1) % Lymph % (Auto) (18.3-44.2) % Carroll % (Auto) (2.6-8.5) % Eos % (Auto) (0-4.4) % Baso % (Auto) (0.2-1.2) % Lymph # (Auto) (0.9-3.2) K/mm3 Carroll # (Auto) (0.1-0.6) K/mm3 Eos # (Auto) (0-0.3) K/mm3 Baso # (Auto) (0.0-0.1) K/mm3 Abs Immat Gran (auto) (0.00-0.031) K/mm3 Absolute Neuts (auto) (1.3-6.7) K/mm3 Absolute Nucleated RBC (0.0-0.012) K/mm3 Band Neutrophils % Nucleated RBC % (0.0-0.2) % Platelet Estimate (Adequate) Hypochromasia Anisocytosis Microcytosis (NORMAL) Ovalocytes Schistocytes PT (11.1-14.7) Seconds INR APTT (22.3-36.8) Seconds Sodium Potassium Chloride Carbon Dioxide Anion Gap BUN Creatinine Estim Creat Clear Calc Estimated GFR Glucose Calcium Total Bilirubin 0.3 AST Cancelled 22 ALT Cancelled 15 Alkaline Phosphatase Cancelled Troponin I (0.000-0.034) ng/mL Total Protein Albumin Blood Type Antibody Screen Crossmatch 11/12/24 11/12/24 11/12/24 Range/Units 19:10 19:10 19:10 WBC (4.5-10.0) K/mm3 RBC (4.6-6.20) M/mm3 Hgb (14.0-18.0) g/dL Hct (42.0-52.0) % MCV (80-100) fl MCH (26-34) pg MCHC (32-36) g/dl RDW (11.5-14.5) % Plt Count (150-375) k/mm3 MPV (7.4-10.4) fl Immature Gran % (Auto) (0-0.5) % Neut % (Auto) (45.5-73.1) % Lymph % (Auto) (18.3-44.2) % Carroll % (Auto) (2.6-8.5) % Eos % (Auto) (0-4.4) % Baso % (Auto) (0.2-1.2) % Lymph # (Auto) (0.9-3.2) K/mm3 Carroll # (Auto) (0.1-0.6) K/mm3 Eos # (Auto) (0-0.3) K/mm3 Baso # (Auto) (0.0-0.1) K/mm3 Abs Immat Gran (auto) (0.00-0.031) K/mm3 Absolute Neuts (auto) (1.3-6.7) K/mm3 Absolute Nucleated RBC (0.0-0.012) K/mm3 Band Neutrophils % Nucleated RBC % (0.0-0.2) % Platelet Estimate (Adequate) Hypochromasia Anisocytosis Microcytosis (NORMAL) Ovalocytes Schistocytes PT (11.1-14.7) Seconds INR APTT (22.3-36.8) Seconds Sodium Potassium Chloride Carbon Dioxide Anion Gap BUN Creatinine Estim Creat Clear Calc Estimated GFR Glucose Calcium Total Bilirubin AST ALT Alkaline Phosphatase 78 Troponin I < 0.012 (0.000-0.034) ng/mL Total Protein Cancelled 6.0 L Albumin Cancelled 3.9 Blood Type A Positive Antibody Screen Negative Crossmatch See Detail 11/12/24 11/13/24 Range/Units 20:23 00:20 WBC (4.5-10.0) K/mm3 RBC (4.6-6.20) M/mm3 Hgb 5.8 L* 8.6 L (14.0-18.0) g/dL Hct 20.6 L* 28.7 L (42.0-52.0) % MCV (80-100) fl MCH (26-34) pg MCHC (32-36) g/dl RDW (11.5-14.5) % Plt Count (150-375) k/mm3 MPV (7.4-10.4) fl Immature Gran % (Auto) (0-0.5) % Neut % (Auto) (45.5-73.1) % Lymph % (Auto) (18.3-44.2) % Carroll % (Auto) (2.6-8.5) % Eos % (Auto) (0-4.4) % Baso % (Auto) (0.2-1.2) % Lymph # (Auto) (0.9-3.2) K/mm3 Carroll # (Auto) (0.1-0.6) K/mm3 Eos # (Auto) (0-0.3) K/mm3 Baso # (Auto) (0.0-0.1) K/mm3 Abs Immat Gran (auto) (0.00-0.031) K/mm3 Absolute Neuts (auto) (1.3-6.7) K/mm3 Absolute Nucleated RBC (0.0-0.012) K/mm3 Band Neutrophils % Nucleated RBC % (0.0-0.2) % Platelet Estimate (Adequate) Hypochromasia Anisocytosis Microcytosis (NORMAL) Ovalocytes Schistocytes PT (11.1-14.7) Seconds INR APTT (22.3-36.8) Seconds Sodium Potassium Chloride Carbon Dioxide Anion Gap BUN Creatinine Estim Creat Clear Calc Estimated GFR Glucose Calcium Total Bilirubin AST ALT Alkaline Phosphatase Troponin I (0.000-0.034) ng/mL Total Protein Albumin Blood Type Antibody Screen Crossmatch <Kelley Bowden PA-C - Last Filed: 11/13/24 10:23> Lab Results 11/12/24 11/12/24 11/12/24 Range/Units 19:10 19:10 19:10 WBC 6.6 (4.5-10.0) K/mm3 RBC 2.94 L (4.6-6.20) M/mm3 Hgb 5.6 L* D (14.0-18.0) g/dL Hct 19.9 L* (42.0-52.0) % MCV 67.7 L (80-100) fl MCH 19.0 L (26-34) pg MCHC 28.1 L (32-36) g/dl RDW 19.6 H (11.5-14.5) % Plt Count 235 (150-375) k/mm3 MPV 9.5 (7.4-10.4) fl Immature Gran % (Auto) 0.5 (0-0.5) % Neut % (Auto) 62.7 (45.5-73.1) % Lymph % (Auto) 22.2 (18.3-44.2) % Carroll % (Auto) 10.6 H (2.6-8.5) % Eos % (Auto) 3.5 (0-4.4) % Baso % (Auto) 0.5 (0.2-1.2) % Lymph # (Auto) 1.46 (0.9-3.2) K/mm3 Carroll # (Auto) 0.7 H (0.1-0.6) K/mm3 Eos # (Auto) 0.2 (0-0.3) K/mm3 Baso # (Auto) 0.0 (0.0-0.1) K/mm3 Abs Immat Gran (auto) 0.03 (0.00-0.031) K/mm3 Absolute Neuts (auto) 4.1 (1.3-6.7) K/mm3 Absolute Nucleated RBC 0.000 (0.0-0.012) K/mm3 Band Neutrophils % Not Reportable Nucleated RBC % 0.0 (0.0-0.2) % Platelet Estimate Adequate (Adequate) Hypochromasia 1+ Anisocytosis 2+ Microcytosis 1+ (NORMAL) Ovalocytes 1+ Schistocytes 1+ PT 13.8 (11.1-14.7) Seconds INR 1.0 APTT 37.8 H (22.3-36.8) Seconds Sodium Cancelled 137 Potassium Cancelled 4.4 Chloride Cancelled Carbon Dioxide Anion Gap BUN Creatinine Estim Creat Clear Calc Estimated GFR Glucose Calcium Total Bilirubin AST ALT Alkaline Phosphatase Troponin I (0.000-0.034) ng/mL Total Protein Albumin Blood Type Antibody Screen Crossmatch 11/12/24 11/12/24 11/12/24 Range/Units 19:10 19:10 19:10 WBC (4.5-10.0) K/mm3 RBC (4.6-6.20) M/mm3 Hgb (14.0-18.0) g/dL Hct (42.0-52.0) % MCV (80-100) fl MCH (26-34) pg MCHC (32-36) g/dl RDW (11.5-14.5) % Plt Count (150-375) k/mm3 MPV (7.4-10.4) fl Immature Gran % (Auto) (0-0.5) % Neut % (Auto) (45.5-73.1) % Lymph % (Auto) (18.3-44.2) % Carroll % (Auto) (2.6-8.5) % Eos % (Auto) (0-4.4) % Baso % (Auto) (0.2-1.2) % Lymph # (Auto) (0.9-3.2) K/mm3 Carroll # (Auto) (0.1-0.6) K/mm3 Eos # (Auto) (0-0.3) K/mm3 Baso # (Auto) (0.0-0.1) K/mm3 Abs Immat Gran (auto) (0.00-0.031) K/mm3 Absolute Neuts (auto) (1.3-6.7) K/mm3 Absolute Nucleated RBC (0.0-0.012) K/mm3 Band Neutrophils % Nucleated RBC % (0.0-0.2) % Platelet Estimate (Adequate) Hypochromasia Anisocytosis Microcytosis (NORMAL) Ovalocytes Schistocytes PT (11.1-14.7) Seconds INR APTT (22.3-36.8) Seconds Sodium Potassium Chloride 108 H Carbon Dioxide Cancelled 20 L Anion Gap Cancelled 9 BUN Cancelled Creatinine Estim Creat Clear Calc Estimated GFR Glucose Calcium Total Bilirubin AST ALT Alkaline Phosphatase Troponin I (0.000-0.034) ng/mL Total Protein Albumin Blood Type Antibody Screen Crossmatch 11/12/24 11/12/24 11/12/24 Range/Units 19:10 19:10 19:10 WBC (4.5-10.0) K/mm3 RBC (4.6-6.20) M/mm3 Hgb (14.0-18.0) g/dL Hct (42.0-52.0) % MCV (80-100) fl MCH (26-34) pg MCHC (32-36) g/dl RDW (11.5-14.5) % Plt Count (150-375) k/mm3 MPV (7.4-10.4) fl Immature Gran % (Auto) (0-0.5) % Neut % (Auto) (45.5-73.1) % Lymph % (Auto) (18.3-44.2) % Carroll % (Auto) (2.6-8.5) % Eos % (Auto) (0-4.4) % Baso % (Auto) (0.2-1.2) % Lymph # (Auto) (0.9-3.2) K/mm3 Carroll # (Auto) (0.1-0.6) K/mm3 Eos # (Auto) (0-0.3) K/mm3 Baso # (Auto) (0.0-0.1) K/mm3 Abs Immat Gran (auto) (0.00-0.031) K/mm3 Absolute Neuts (auto) (1.3-6.7) K/mm3 Absolute Nucleated RBC (0.0-0.012) K/mm3 Band Neutrophils % Nucleated RBC % (0.0-0.2) % Platelet Estimate (Adequate) Hypochromasia Anisocytosis Microcytosis (NORMAL) Ovalocytes Schistocytes PT (11.1-14.7) Seconds INR APTT (22.3-36.8) Seconds Sodium Potassium Chloride Carbon Dioxide Anion Gap BUN 20 Creatinine Cancelled 1.12 Estim Creat Clear Calc Cancelled Not Reportable Estimated GFR Cancelled Glucose Calcium Total Bilirubin AST ALT Alkaline Phosphatase Troponin I (0.000-0.034) ng/mL Total Protein Albumin Blood Type Antibody Screen Crossmatch 11/12/24 11/12/24 11/12/24 Range/Units 19:10 19:10 19:10 WBC (4.5-10.0) K/mm3 RBC (4.6-6.20) M/mm3 Hgb (14.0-18.0) g/dL Hct (42.0-52.0) % MCV (80-100) fl MCH (26-34) pg MCHC (32-36) g/dl RDW (11.5-14.5) % Plt Count (150-375) k/mm3 MPV (7.4-10.4) fl Immature Gran % (Auto) (0-0.5) % Neut % (Auto) (45.5-73.1) % Lymph % (Auto) (18.3-44.2) % Carroll % (Auto) (2.6-8.5) % Eos % (Auto) (0-4.4) % Baso % (Auto) (0.2-1.2) % Lymph # (Auto) (0.9-3.2) K/mm3 Carroll # (Auto) (0.1-0.6) K/mm3 Eos # (Auto) (0-0.3) K/mm3 Baso # (Auto) (0.0-0.1) K/mm3 Abs Immat Gran (auto) (0.00-0.031) K/mm3 Absolute Neuts (auto) (1.3-6.7) K/mm3 Absolute Nucleated RBC (0.0-0.012) K/mm3 Band Neutrophils % Nucleated RBC % (0.0-0.2) % Platelet Estimate (Adequate) Hypochromasia Anisocytosis Microcytosis (NORMAL) Ovalocytes Schistocytes PT (11.1-14.7) Seconds INR APTT (22.3-36.8) Seconds Sodium Potassium Chloride Carbon Dioxide Anion Gap BUN Creatinine Estim Creat Clear Calc Estimated GFR > 60 Glucose Cancelled 96 Calcium Cancelled 8.6 Total Bilirubin Cancelled AST ALT Alkaline Phosphatase Troponin I (0.000-0.034) ng/mL Total Protein Albumin Blood Type Antibody Screen Crossmatch 11/12/24 11/12/24 11/12/24 Range/Units 19:10 19:10 19:10 WBC (4.5-10.0) K/mm3 RBC (4.6-6.20) M/mm3 Hgb (14.0-18.0) g/dL Hct (42.0-52.0) % MCV (80-100) fl MCH (26-34) pg MCHC (32-36) g/dl RDW (11.5-14.5) % Plt Count (150-375) k/mm3 MPV (7.4-10.4) fl Immature Gran % (Auto) (0-0.5) % Neut % (Auto) (45.5-73.1) % Lymph % (Auto) (18.3-44.2) % Carroll % (Auto) (2.6-8.5) % Eos % (Auto) (0-4.4) % Baso % (Auto) (0.2-1.2) % Lymph # (Auto) (0.9-3.2) K/mm3 Carroll # (Auto) (0.1-0.6) K/mm3 Eos # (Auto) (0-0.3) K/mm3 Baso # (Auto) (0.0-0.1) K/mm3 Abs Immat Gran (auto) (0.00-0.031) K/mm3 Absolute Neuts (auto) (1.3-6.7) K/mm3 Absolute Nucleated RBC (0.0-0.012) K/mm3 Band Neutrophils % Nucleated RBC % (0.0-0.2) % Platelet Estimate (Adequate) Hypochromasia Anisocytosis Microcytosis (NORMAL) Ovalocytes Schistocytes PT (11.1-14.7) Seconds INR APTT (22.3-36.8) Seconds Sodium Potassium Chloride Carbon Dioxide Anion Gap BUN Creatinine Estim Creat Clear Calc Estimated GFR Glucose Calcium Total Bilirubin 0.3 AST Cancelled 22 ALT Cancelled 15 Alkaline Phosphatase Cancelled Troponin I (0.000-0.034) ng/mL Total Protein Albumin Blood Type Antibody Screen Crossmatch 11/12/24 11/12/24 11/12/24 Range/Units 19:10 19:10 19:10 WBC (4.5-10.0) K/mm3 RBC (4.6-6.20) M/mm3 Hgb (14.0-18.0) g/dL Hct (42.0-52.0) % MCV (80-100) fl MCH (26-34) pg MCHC (32-36) g/dl RDW (11.5-14.5) % Plt Count (150-375) k/mm3 MPV (7.4-10.4) fl Immature Gran % (Auto) (0-0.5) % Neut % (Auto) (45.5-73.1) % Lymph % (Auto) (18.3-44.2) % [place] % (Auto) (2.6-8.5) % Eos % (Auto) (0-4.4) % Baso % (Auto) (0.2-1.2) % Lymph # (Auto) (0.9-3.2) K/mm3 [place] # (Auto) (0.1-0.6) K/mm3 Eos # (Auto) (0-0.3) K/mm3 Baso # (Auto) (0.0-0.1) K/mm3 Abs Immat Gran (auto) (0.00-0.031) K/mm3 Absolute Neuts (auto) (1.3-6.7) K/mm3 Absolute Nucleated RBC (0.0-0.012) K/mm3 Band Neutrophils % Nucleated RBC % (0.0-0.2) % Platelet Estimate (Adequate) Hypochromasia Anisocytosis Microcytosis (NORMAL) Ovalocytes Schistocytes PT (11.1-14.7) Seconds INR APTT (22.3-36.8) Seconds Sodium Potassium Chloride Carbon Dioxide Anion Gap BUN Creatinine Estim Creat Clear Calc Estimated GFR Glucose Calcium Total Bilirubin AST ALT Alkaline Phosphatase 78 Troponin I < 0.012 (0.000-0.034) ng/mL Total Protein Cancelled 6.0 L Albumin Cancelled 3.9 Blood Type A Positive Antibody Screen Negative Crossmatch See Detail 11/12/24 11/13/24 Range/Units 20:23 00:20 WBC (4.5-10.0) K/mm3 RBC (4.6-6.20) M/mm3 Hgb 5.8 L* 8.6 L (14.0-18.0) g/dL Hct 20.6 L* 28.7 L (42.0-52.0) % MCV (80-100) fl MCH (26-34) pg MCHC (32-36) g/dl RDW (11.5-14.5) % Plt Count (150-375) k/mm3 MPV (7.4-10.4) fl Immature Gran % (Auto) (0-0.5) % Neut % (Auto) (45.5-73.1) % Lymph % (Auto) (18.3-44.2) % [place] % (Auto) (2.6-8.5) % Eos % (Auto) (0-4.4) % Baso % (Auto) (0.2-1.2) % Lymph # (Auto) (0.9-3.2) K/mm3 [place] # (Auto) (0.1-0.6) K/mm3 Eos # (Auto) (0-0.3) K/mm3 Baso # (Auto) (0.0-0.1) K/mm3 Abs Immat Gran (auto) (0.00-0.031) K/mm3 Absolute Neuts (auto) (1.3-6.7) K/mm3 Absolute Nucleated RBC (0.0-0.012) K/mm3 Band Neutrophils % Nucleated RBC % (0.0-0.2) % Platelet Estimate (Adequate) Hypochromasia Anisocytosis Microcytosis (NORMAL) Ovalocytes Schistocytes PT (11.1-14.7) Seconds INR APTT (22.3-36.8) Seconds Sodium Potassium Chloride Carbon Dioxide Anion Gap BUN Creatinine Estim Creat Clear Calc Estimated GFR Glucose Calcium Total Bilirubin AST ALT Alkaline Phosphatase Troponin I (0.000-0.034) ng/mL Total Protein Albumin Blood Type Antibody Screen Crossmatch <Franco Joseph MD - Last Filed: 11/13/24 00:57> Imaging Data Attestation: I personally reviewed and interpreted this imaging study as follows: <Franco Joseph MD - Last Filed: 11/13/24 00:57> My impression: Impressions Chest X-Ray 11/12/24 19:27 IMPRESSION: No acute cardiopulmonary process. Chest/Abdomen/Pelvis CTA 11/12/24 21:25 IMPRESSION: 7 mm right middle lobe nodule, recommend follow-up low-dose noncontrast CT of the chest in 6-12 months. Stable descending thoracic aortic aneurysm. No acute abdominopelvic process detected. <Franco Joseph MD - Last Filed: 11/13/24 00:57> ECG Data EKG #1: Attestation: I personally reviewed and interpreted this ECG as follows: <Franco Joseph MD - Last Filed: 11/13/24 00:57> ECG completion date: 11/12/24 <Franco Joseph MD - Last Filed: 11/13/24 00:57> ECG completion time: 20:43 <Franco Joseph MD - Last Filed: 11/13/24 00:57> Prior ECG tracings: available for review <Franco Joseph MD - Last Filed: 11/13/24 00:57> Interpretation: Sinus rhythm, occasional supraventricular premature complex noted, no ST segment elevations, depressions or inversions. Right bundle branch block is seen. QTC 469, CT interval 209, QRS 132. No available EKG for comparison per EMR. Overall sinus rhythm with PAC, right bundle-branch block. <Franco Joseph MD - Last Filed: 11/13/24 00:57> Critical Care Time Critical Care Time Critical Care Time: Yes <Franco Joseph MD - Last Filed: 11/13/24 00:57> Total Critical Care Time: 35 <Franco Joseph MD - Last Filed: 11/13/24 00:57> Discharge Plan Discharge Clinical Impression: Acute anemia, History of lung cancer Dementia Qualifiers: Dementia type: unspecified type Dementia severity: unspecified severity Dementia behavioral or psychological symptom: without behavioral, psychotic, or mood disturbance or anxiety Qualified Code(s): F03.90 - Unspecified dementia, unspecified severity, without behavioral disturbance, psychotic disturbance, mood disturbance, and anxiety <Kelley Bowden PA-C - Last Filed: 11/13/24 10:23> Patient Disposition: Home, Self-Care <Kelley Bowden PA-C - Last Filed: 11/13/24 10:23> Condition: Stable <JERRY John Last Filed: 11/13/24 10:23> Instructions: Antibiotic Form <Kelley Bowden PA-C - Last Filed: 11/13/24 10:23> Additional Instructions: Your hemoglobin has come up after 2 units of blood here in the emergency department. No active bleeding or concerns from your aneurysms based on the CT scans with contrast an arterial studies we got here today. Your other laboratory studies are all reassuring. Please contact your cancer doctor and your primary care provider tomorrow morning for repeat evaluation on a short-term basis. The anemia is likely secondary to the aggressive treatment you have been getting for your cancer especially in this setting that we have no signs of bleeding or active issues in the chest or abdomen. If you develop any new or worsening concerns, develop any syncope were started having pain anywhere please return to the emergency department otherwise follow-up with your doctors on a short-term basis. <Kelley Bowden PA-C - Last Filed: 11/13/24 10:23> Patient Language: Georgian <Kelley Bowden PA-C - Last Filed: 11/13/24 10:23> Prescriptions: No Action cephalexin 500 mg capsule 500 mg PO QID Qty: 28 0RF simvastatin 40 mg tablet 40 mg PO HS alprazolam 0.25 mg tablet 0.25 mg PO HS levothyroxine 50 mcg tablet 50 mcg PO DAILY pantoprazole 40 mg tablet,delayed release (DR/EC) 40 mg PO DAILY mirtazapine 30 mg tablet 30 mg PO HS memantine 10 mg tablet 10 mg PO HS lisinopril 10 mg Tablet 10 mg PO Q12H fluticasone propionate 50 mcg/actuation [place],Suspension 1 spray INTRANASAL DAILY psyllium husk [Daily Fiber] 0.4 gram Capsule 0.4 g PO DAILY sodium bicarbonate 650 mg Tablet 650 mg PO BID Qty: 30 0RF amlodipine 5 mg tablet 5 mg PO DAILY meclizine 25 mg tablet 25 mg PO TID PRN (Reason: dizziness) 14 Days Qty: 60 0RF betamethasone valerate 0.1 % cream 1 applic topical BID-TID MDD tid PRN (Reason: itching) Qty: 15 2RF <Kelley Bowden PA-C - Last Filed: 11/13/24 10:23> Follow-up/Referrals: Franco,SKYLER Deluca [Primary Care Provider] - <Kelley Bowden PA-C - Last Filed: 11/13/24 10:23> Time of Disposition: 00:56 <Kelley Bowden PA-C - Last Filed: 11/13/24 10:23> 00:56 <Franco Joseph MD - Last Filed: 11/13/24 00:57>
[2024-11-12 19:18] LABS: Basophils Percent Auto 0.5 % (0.2-1.2); Eosinophils Absolute Auto 0.2 K/mm3 (0-0.3); Eosinophils Percent Auto 3.5 % (0-4.4); Immature Granulocyte Absolute 0.03 K/mm3 (0.00-0.031); Immature Granulocyte Percent A 0.5 % (0-0.5); Lymphocytes Absolute Auto 1.46 K/mm3 (0.9-3.2); Lymphocytes Percent Auto 22.2 % (18.3-44.2); Mean Corpuscular HGB Conc 28.1 g/dl (32-36); Mean Corpuscular Volume 67.7 fl (80-100); Mean Platelet Volume 9.5 fl (7.4-10.4); Monocytes Absolute Auto 0.7 K/mm3 (0.1-0.6); Monocytes Percent Auto 10.6 % (2.6-8.5); Neutrophils Absolute Auto 4.1 K/mm3 (1.3-6.7); Neutrophils Percent Auto 62.7 % (45.5-73.1); Platelet Count Result 235 k/mm3 (150-375); Red Blood Count 2.94 M/mm3 (4.6-6.20); Red Cell Distribution Width 19.6 % (11.5-14.5); White Blood Count 6.6 K/mm3 (4.5-10.0)
[2024-11-12 19:30] LABS: Alanine Aminotransferase 15 U/L (6-50); Albumin Level 3.9 g/dL (3.5-5.1); Alkaline Phosphatase 78 U/L (38-126); Anion Gap 9 mmol/L (4-12); Aspartate Amino Transferase 22 U/L (17-59); Bilirubin,Total 0.3 mg/dL (0.2-1.3); Blood Urea Nitrogen 20 mg/dL (9-20); Calcium 8.6 mg/dL (8.4-10.2); Carbon Dioxide 20 mmol/L (22-30); Chloride 108 mmol/L (98-107); Estimated Glomerular Filt Rate > 60; Glucose 96 mg/dL (65-110); Potassium 4.4 mmol/L (3.4-5.0); Sodium 137 mmol/L (137-145)
[2024-11-12 19:42] LABS: Troponin I < 0.012 ng/mL (0.000-0.034)
[2024-11-12 19:49] LABS: Hematocrit 19.9 % (42.0-52.0); Hemoglobin 5.6 g/dL (14.0-18.0); Prothrombin Time 13.8 Seconds (11.1-14.7)
[2024-11-12 19:50] LABS: Partial Thromboplastin Time 37.8 Seconds (22.3-36.8); Platelet Estimate Adequate (Adequate)
[2024-11-12 19:52] LABS: Hypochromasia 1+; Microcytosis 1+ (NORMAL); Schistocytes 1+
[2024-11-12 19:53] LABS: Anisocytosis 2+
[2024-11-12 19:54] LABS: Ovalocytes 1+
--- NOTE | 2024-11-12 21:05 | PC.NURSE ---
pt repeat H&H scheduled for 2044, spoke with UVALDO Joseph, repeat is supposed to be timed for after blood is done. Raine DUBOSE notified as well. will retime once the unit of blood is started.
[2024-11-12 21:26] LABS: Hematocrit 20.6 % (42.0-52.0); Hemoglobin 5.8 g/dL (14.0-18.0)
[2024-11-12] MEDS: METOCLOPRAMIDE HCL INJ 10 MG/2 ML VIAL IV PUSH (21:27)
[2024-11-12] MEDS: PANTOPRAZOLE SODIUM IV 40 MG VIAL 80 MG IV PUSH (21:28)
[2024-11-12] MEDS: TUBING, BLOOD SET 2 EACH XX (23:08)
[2024-11-12] MEDS: SODIUM CHLORIDE 0.9% IV 250 ML 30 ML IV CONT (23:09)
[2024-11-12] MEDS: SODIUM CHLORIDE 0.9% IV 250 ML (23:09)
[2024-11-13 00:25] LABS: Hematocrit 28.7 % (42.0-52.0); Hemoglobin 8.6 g/dL (14.0-18.0)
[2024-11-13 01:16] VITALS: BP 142/83; PULSE 65; RESP 15; O2SAT 99
[2024-11-13 01:17] VITALS: BP 142/83; PULSE 65; RESP 15; O2SAT 99
== END 2024-11-13 01:18 | disposition home or self-care (01) ==
PROVIDERS: Physician Assistant; Emergency Provider Student in an Organized Health Care Education/Training Program; PCP Physician Assistant
DX: D64.9 Anemia, unspecified (principal); C34.91 Malignant neoplasm of unspecified part of right bronchus or lung; F03.90 Unspecified dementia, unspecified severity, without behavioral disturbance, psychotic disturbance, mood disturbance, and anxiety; N39.0 Urinary tract infection, site not specified; I71.40 Abdominal aortic aneurysm, without rupture, unspecified; I71.20 Thoracic aortic aneurysm, without rupture, unspecified; I10 Essential (primary) hypertension; Z86.73 Personal history of transient ischemic attack (TIA), and cerebral infarction without residual deficits; Z87.891 Personal history of nicotine dependence; Z79.82 Long term (current) use of aspirin; I49.1 Atrial premature depolarization; I45.10 Unspecified right bundle-branch block
CPT/HCPCS: 36415; 36430; 71046; 71275; 74174; 80053; 84484; 85014; 85018; 85025; 85610; 85730; 86850; 86900; 86901; 86923; 93005; 96361; 96374; 96375; 99285; J2470; J2765; J7050; P9016; Q9967

== ENCOUNTER 2024-11-14 09:55 | Outpatient (CLI) | payer MEDICARE, MEDICAID, SELFPAY ==
[2024-11-14 10:30] LABS: Basophils Absolute Auto 0.1 K/mm3 (0.0-0.1); Basophils Percent Auto 0.3 % (0.2-1.2); Eosinophils Absolute Auto 0.4 K/mm3 (0-0.3); Eosinophils Percent Auto 2.4 % (0-4.4); Hematocrit 29.3 % (42.0-52.0); Hemoglobin 8.9 g/dL (14.0-18.0); Immature Granulocyte Absolute 0.09 K/mm3 (0.00-0.031); Immature Granulocyte Percent A 0.5 % (0-0.5); Lymphocytes Absolute Auto 0.56 K/mm3 (0.9-3.2); Lymphocytes Percent Auto 3.4 % (18.3-44.2); Mean Corpuscular HGB Conc 30.4 g/dl (32-36); Mean Corpuscular Hemoglobin 21.5 pg (26-34); Mean Corpuscular Volume 70.8 fl (80-100); Mean Platelet Volume 9.4 fl (7.4-10.4); Monocytes Percent Auto 6.1 % (2.6-8.5); Neutrophils Absolute Auto 14.4 K/mm3 (1.3-6.7); Neutrophils Percent Auto 87.3 % (45.5-73.1); Platelet Count Result 228 k/mm3 (150-375); Red Blood Count 4.14 M/mm3 (4.6-6.20); Red Cell Distribution Width 22.5 % (11.5-14.5); White Blood Count 16.5 K/mm3 (4.5-10.0)
[2024-11-14 11:10] LABS: Iron 27 ug/dL (49-181)
[2024-11-14 11:19] LABS: Percent Iron Saturation 6 % (20-50)
[2024-11-14 12:02] LABS: Anisocytosis 1+; Microcytosis 1+ (NORMAL); Platelet Estimate Adequate (Adequate)
[2024-11-14 12:03] LABS: Acanthocytes 1+; Ovalocytes 1+; Schistocytes None Seen
== END 2024-11-14 09:56 | disposition home or self-care (01) ==
PROVIDERS: PCP Physician Assistant; Visit Provider Physician Assistant
DX: D64.9 Anemia, unspecified (principal)
CPT/HCPCS: 36415; 82728; 83540; 83550; 85025

== ENCOUNTER → 2025-01-16 14:39 | Outpatient (CLI) | payer MEDICARE, MEDICAID, SELFPAY ==
--- NOTE | ~2025-01-16 | XR_ITS ---
XR lumbar spine min 4V 01/16/2025 15:05 Indication: Back pain Procedure: 5 views lumbar spine Comparison: No prior studies for comparison. Findings: Vertebral body heights are maintained. There is disc narrowing at all lumbar levels. There is advanced facet hypertrophy at L3-4, L4-5 and L5-S1. Pedicles intact. Prominent ventral osteophytes at multiple levels. No evidence for spondylolisthesis. There are cholecystectomy clips. No fracture or traumatic malalignment. Impression: 1: Severe lumbar spondylosis. Reviewed, dictated and finalized at location A. Impression: 1: Severe lumbar spondylosis.
== END ==
PROVIDERS: PCP Nurse Practitioner Family; Visit Provider Nurse Practitioner Family
DX: M47.816 Spondylosis without myelopathy or radiculopathy, lumbar region (principal)
CPT/HCPCS: 72110